=== PATIENT | male | born 1950 | race Caucasian/White ===

== ENCOUNTER 2019-04-04 08:17 | Outpatient (CLI) | payer MEDICARE, SELFPAY ==
[2019-04-04 08:48] LABS: Hemoglobin A1C 6.2 % (<5.7)
[2019-04-04 08:53] LABS: Alanine Aminotransferase 19 U/L (4-50); Albumin Level 4.5 g/dL (3.5-5.1); Alkaline Phosphatase 58 U/L (38-126); Aspartate Amino Transferase 21 U/L (17-59); Bilirubin,Total 0.6 mg/dL (0.2-1.3); Blood Urea Nitrogen 12 mg/dL (9-20); Calcium 9.7 mg/dL (8.4-10.2); Carbon Dioxide 28 mmol/L (22-30); Chloride 98 mmol/L (98-107); Cholesterol 130 mg/dL (0-200); Estimated Glomerular Filt Rate > 60; Glucose 106 mg/dL (75-110); HDL Direct 29 mg/dL; Potassium 4.3 mmol/L (3.4-5.0); Sodium 140 mmol/L (137-145); Triglycerides 104 mg/dL (<150)
[2019-04-04 09:05] LABS: LDL Cholesterol Direct 84 mg/dL
== END 2019-04-04 08:18 | disposition home or self-care (01) ==
PROVIDERS: PCP Family Medicine; Visit Provider Physician Assistant
DX: E11.9 Type 2 diabetes mellitus without complications (principal); E78.5 Hyperlipidemia, unspecified; E03.9 Hypothyroidism, unspecified
CPT/HCPCS: 36415; 80053; 80061; 83036; 84443

== ENCOUNTER 2019-04-28 02:23 | Day surgery (SDC) | payer MEDICARE, SELFPAY ==
[2019-04-28 08:14] VITALS: BP 142/86; PULSE 63; RESP 20; TEMP 36.3; O2SAT 98
[2019-04-28] MEDS: LACTATED RINGERS 1,000 ML 150 ML IV CONT (08:29)
[2019-04-28] MEDS: AMPICILLIN 2 GM/NS 100 ML 2 GM/100 ML BAG IVPB (08:30)
[2019-04-28] MEDS: GENTAMICIN 60 MG/50 ML NS 60 MG/50 ML BAG 100 MG IVPB (08:30)
--- NOTE | 2019-04-28 08:33 | WPDANESEPPF ---
Anes - Initial Pre Proc Eval Procedure: Operation Date: 04/28/19 09:00 Proposed Procedures p Screening Colonoscopy - Nate Pereira MD Date/Time: 04/28/19 08:33 Surgeon: Nate Pereira MD Pre Op Diagnosis: Neoplasm Screening, Hx of Polyps Patient Data Age: 68 Gender: M Height: 1.78 m Weight: 94.6 kg Last Vital Signs Temp 36.3 C L 04/28/19 08:14 Pulse 63 04/28/19 08:14 Resp 20 04/28/19 08:14 BP 142/86 H 04/28/19 08:14 Pulse Ox 98 04/28/19 08:14 Allergies Allergy/AdvReac Type Severity Reaction Status Date / Time No Known Allergies Allergy Unverified 04/21/19 14:49 Home Medications Medication Instructions Recorded Confirmed Type albuterol sulfate 2.5 mg INHALATION Q6H 04/11/19 04/21/19 History amlodipine 5 mg tablet 5 mg PO DAILY 04/11/19 04/21/19 History ascorbic acid (vitamin C) 1,000 mg 1 gm PO DAILY 04/11/19 04/21/19 History tablet aspirin 81 mg tablet,delayed 81 mg PO DAILY 04/11/19 04/21/19 History release atorvastatin 20 mg tablet 40 mg PO DAILY tablet 04/11/19 04/21/19 History budesonide-formoterol HFA 160 2 puff INHALATION Q12H 04/11/19 04/21/19 History mcg-4.5 mcg/actuation aerosol inhaler fluticasone propionate 50 1 spray NASAL BID 04/11/19 04/21/19 History mcg/actuation nasal spray,suspension furosemide 20 mg tablet 20 mg PO QAM 04/11/19 04/21/19 History levothyroxine 112 mcg tablet 112 mcg PO DAILY 04/11/19 04/21/19 History montelukast 10 mg tablet 10 mg PO DAILY 04/11/19 04/21/19 History multivitamin 1 tablet PO DAILY 04/11/19 04/21/19 History rivaroxaban 20 mg tablet 40 mg PO QPM 04/11/19 04/21/19 History tiotropium bromide 2.5 2 puff INHALATION DAILY 04/11/19 04/21/19 History mcg/actuation mist for inhalation metformin 500 mg tablet 500 mg PO BID 04/12/19 04/21/19 History metoprolol tartrate 25 mg PO BID 04/21/19 04/21/19 History montelukast 10 mg PO DAILY 04/21/19 04/21/19 History sertraline 100 mg PO DAILY 04/21/19 04/21/19 History Patient hx anesthesia problems: none Family hx anesthesia problems: none [facility] Past Medical History Medical History (Updated 04/28/19 @ 08:33 by Alfonso Lomeli DO) Allergic rhinitis CAD (coronary artery disease) >4 METs Chronic a-fib COPD (chronic obstructive pulmonary disease) Depression History of [place] (myocardial infarction) HLD (hyperlipidemia) HTN (hypertension) Hypothyroidism Mitral valve regurgitation RONALD (obstructive sleep apnea) Type 2 diabetes mellitus without complications Surgical History Surgical History (Updated 04/28/19 @ 08:33 by Alfonso Lomeli DO) H/O mitral valve repair 05/2018 Hx of CABG x2 vessel, 05/2018 Family History Family History (Updated 12/11/17 @ 10:09 by DOCTOR UNKNOWN) Sibling Patient's sister is in good health Father Family history of cardiovascular disease, Onset Age: 68 Social History Social History Smoking status: Former smoker Smoking end date: 02/23/03 Alcohol intake: never Gender identity (if verbalized by the patient): Male Anes - Eval Final PreProcedure Day of Procedure 04/28/19 08:33 Patient weight: overweight Heart: regular rate and rhythm Lungs: clear to auscultation and normal air movement Airway: Mallampati scale class II Neurological: alert and oriented Last oral intake: >/= 8 hours ASA classification: III Emergent: no Anesthetic plan: proceed Anesthesia type and monitoring: general GIVS and standard monitoring Informed Consent: The patient's anesthetic plan and its attendant risks and benefits were discussed with the patient/family/POA. Questions were solicited and answers provided to the satisfaction of the patient/family/POA.
--- NOTE | 2019-04-28 08:40 | PM.HPGS ---
History of Present Illness History of Present Illness Consent: Risks, benefits, and alternatives have been discussed and questions answered. Patient agrees to proceed with procedure. Chief complaint: Neoplasm Screening, Hx of Polyps Narrative: Fox Weiss is a 68 year old w male Referred for colonoscopy secondary to history of colonic polyps. Patient has had multiple colonoscopies in the past and last one was 5 years ago in [facility] Past Medical History Medical History Allergic rhinitis CAD (coronary artery disease) >4 METs Chronic a-fib COPD (chronic obstructive pulmonary disease) Depression History of [place] (myocardial infarction) HLD (hyperlipidemia) HTN (hypertension) Hypothyroidism Mitral valve regurgitation RONALD (obstructive sleep apnea) Type 2 diabetes mellitus without complications Surgical History Surgical History H/O mitral valve repair 05/2018 Hx of CABG x2 vessel, 05/2018 Family History Family History Sibling Patient's sister is in good health Father Family history of cardiovascular disease, Onset Age: 68 Social History Social History Smoking status: Former smoker Smoking end date: 02/23/03 Alcohol intake: never Gender identity (if verbalized by the patient): Male Meds Home Medications and Allergies Home Medications Medication Instructions Recorded Confirmed Type albuterol sulfate 2.5 mg INHALATION Q6H 04/11/19 04/21/19 History amlodipine 5 mg tablet 5 mg PO DAILY 04/11/19 04/21/19 History ascorbic acid (vitamin C) 1,000 mg 1 gm PO DAILY 04/11/19 04/21/19 History tablet aspirin 81 mg tablet,delayed 81 mg PO DAILY 04/11/19 04/21/19 History release atorvastatin 20 mg tablet 40 mg PO DAILY tablet 04/11/19 04/21/19 History budesonide-formoterol HFA 160 2 puff INHALATION Q12H 04/11/19 04/21/19 History mcg-4.5 mcg/actuation aerosol inhaler fluticasone propionate 50 1 spray NASAL BID 04/11/19 04/21/19 History mcg/actuation nasal spray,suspension furosemide 20 mg tablet 20 mg PO QAM 04/11/19 04/21/19 History levothyroxine 112 mcg tablet 112 mcg PO DAILY 04/11/19 04/21/19 History montelukast 10 mg tablet 10 mg PO DAILY 04/11/19 04/21/19 History multivitamin 1 tablet PO DAILY 04/11/19 04/21/19 History rivaroxaban 20 mg tablet 40 mg PO QPM 04/11/19 04/21/19 History tiotropium bromide 2.5 2 puff INHALATION DAILY 04/11/19 04/21/19 History mcg/actuation mist for inhalation metformin 500 mg tablet 500 mg PO BID 04/12/19 04/21/19 History metoprolol tartrate 25 mg PO BID 04/21/19 04/21/19 History montelukast 10 mg PO DAILY 04/21/19 04/21/19 History sertraline 100 mg PO DAILY 04/21/19 04/21/19 History Allergies Allergy/AdvReac Type Severity Reaction Status Date / Time No Known Allergies Allergy Unverified 04/21/19 14:49 Vital Signs Vital Signs - 24 hr 04/28/19 08:14 Temperature 36.3 C L Pulse Rate 63 Respiratory Rate 20 Blood Pressure 142/86 H Pulse Oximetry 98 Exam Const: Orientation/consciousness: patient oriented x3 Resp: Auscultation: clear to auscultation bilaterally Cardio: Rate: regular rate Rhythm: regular rhythm Heart sounds: no murmurs GI: GI Palp: Yes Soft to palpation, No Tenderness to palpation present (GI), Yes No hepatosplenomegaly present and No Palpable mass present Auscultation: normal bowel sounds Neuro: General: patient oriented x3 and no focal motor deficits Extrem: General: no pedal edema Assessment and Plan Additional Plan Screening colonoscopy secondary history of colonic polyps
[2019-04-28 08:46] LABS: Glucose Point of Care 106 (65-105)
[2019-04-28 10:10] VITALS: BP 133/82; PULSE 69; RESP 20; O2SAT 98
[2019-04-28 10:20] VITALS: BP 128/64; PULSE 70; RESP 20; O2SAT 98
[2019-04-28 10:28] VITALS: BP 147/98; PULSE 66; RESP 20; O2SAT 99
== END 2019-04-28 10:37 | disposition home or self-care (01) ==
PROVIDERS: PCP Family Medicine; Visit Provider Internal Medicine Gastroenterology
PROC: 0DJD8ZZ Inspection of Lower Intestinal Tract, Via Natural or Artificial Opening Endoscopic (ICD-10-PCS; CPT 45378; principal; 2019-04-28 09:00)
DX: Z12.11 Encounter for screening for malignant neoplasm of colon (principal); D12.2 Benign neoplasm of ascending colon; D12.0 Benign neoplasm of cecum; D12.3 Benign neoplasm of transverse colon; K64.8 Other hemorrhoids; K64.4 Residual hemorrhoidal skin tags; K57.30 Diverticulosis of large intestine without perforation or abscess without bleeding; I48.20 Chronic atrial fibrillation, unspecified; I25.10 Atherosclerotic heart disease of native coronary artery without angina pectoris; I10 Essential (primary) hypertension; I25.2 Old myocardial infarction; J44.9 Chronic obstructive pulmonary disease, unspecified; E78.5 Hyperlipidemia, unspecified; E11.9 Type 2 diabetes mellitus without complications; E03.9 Hypothyroidism, unspecified; G47.33 Obstructive sleep apnea (adult) (pediatric); F32.9 Major depressive disorder, single episode, unspecified; Z79.01 Long term (current) use of anticoagulants; Z79.82 Long term (current) use of aspirin; Z79.84 Long term (current) use of oral hypoglycemic drugs; Z95.1 Presence of aortocoronary bypass graft; Z87.891 Personal history of nicotine dependence
CPT/HCPCS: 45385; 45380; 88305; J0290; J1580; J2704; J7120

== ENCOUNTER 2019-05-31 14:39 | Outpatient (CLI) | payer MEDICARE, SELFPAY ==
--- NOTE | ~2019-05-31 | CT_ITS ---
EXAMINATION: CT abdomen pelvis wo con EXAM DATE: 05/31/2019 14:53 INDICATION: Right upper quadrant pain, hematuria. TECHNIQUE: Spiral CT of the abdomen and pelvis was performed without contrast. Axial, coronal and s agittal images were reviewed. The dose-length product (DLP) for this examination was 813.38 mGy-cm. The exposure was tailored according to patient size (auto mA exposure control), and iterative recons truction (ASIR) was used as additional dose reduction technique. There is no prior study for compari son. FINDINGS: The liver, spleen, adrenal glands and pancreas are unremarkable. There is gallstone within an otherwise unremarkable gallbladder. Lower abdominal aortic aneurysm measuring 4.9 x 4.2 cm. Ther e are 2 right calyceal stones, largest measuring 5 mm x 2 mm. No obstructing ureteral stones. No hydr onephrosis. The prostate is unremarkable. The bladder is unremarkable. There is no retroperitoneal or pelvic lymphadenopathy. There is moderate scattered arteriosclerotic disease. The appendix is normal. The stomach and small bowel are unremarkable. There is expected amount of c olonic stool. No free intraperitoneal gas. There is cardiomegaly. Sternotomy wires, mitral valve replacement. The lung bases are unremarkable. There are no osteoblastic or osteolytic lesions ident ified. IMPRESSION: 1. Right nephrolithiasis. 2. Cholelithiasis. 3. Cardiomegaly. Reviewed, dictated and finalized at location B.
== END 2019-05-31 14:40 | disposition home or self-care (01) ==
LOC: ANHIMG 14:40
PROVIDERS: PCP Family Medicine; Visit Provider Physician Assistant
DX: R10.11 Right upper quadrant pain (principal); R31.9 Hematuria, unspecified; N20.0 Calculus of kidney; K80.20 Calculus of gallbladder without cholecystitis without obstruction; I51.7 Cardiomegaly
CPT/HCPCS: 74176

== ENCOUNTER 2019-06-01 08:12 | Outpatient (CLI) | payer MEDICARE, SELFPAY ==
[2019-06-01 08:49] LABS: Basophils Absolute Auto 0.1 K/mm3 (0.0-0.1); Basophils Percent Auto 0.7 % (0.2-1.2); Eosinophils Absolute Auto 0.3 K/mm3 (0-0.3); Eosinophils Percent Auto 3.1 % (0-4.4); Hematocrit 37.6 % (42.0-52.0); Hemoglobin 12.3 g/dL (14.0-18.0); Immature Granulocyte Absolute 0.05 K/mm3 (0.00-0.031); Immature Granulocyte Percent A 0.6 % (0-0.5); Lymphocytes Absolute Auto 2.94 K/mm3 (0.9-3.2); Lymphocytes Percent Auto 32.7 % (18.3-44.2); Mean Corpuscular HGB Conc 32.7 g/dl (32-36); Mean Corpuscular Hemoglobin 29.9 pg (26-34); Mean Corpuscular Volume 91.3 fl (80-100); Mean Platelet Volume 8.9 fl (7.4-10.4); Monocytes Absolute Auto 0.7 K/mm3 (0.1-0.6); Neutrophils Absolute Auto 4.9 K/mm3 (1.3-6.7); Neutrophils Percent Auto 54.9 % (45.5-73.1); Platelet Count Result 221 k/mm3 (150-375); Red Blood Count 4.12 M/mm3 (4.6-6.20)
[2019-06-01 09:03] LABS: Alanine Aminotransferase 15 U/L (4-50); Albumin Level 4.3 g/dL (3.5-5.1); Alkaline Phosphatase 62 U/L (38-126); Amylase 103 U/L (30-110); Aspartate Amino Transferase 22 U/L (17-59); Bilirubin,Total 0.6 mg/dL (0.2-1.3); Blood Urea Nitrogen 16 mg/dL (9-20); Calcium 9.5 mg/dL (8.4-10.2); Carbon Dioxide 25 mmol/L (22-30); Chloride 104 mmol/L (98-107); Estimated Glomerular Filt Rate > 60; Glucose 104 mg/dL (75-110); Lipase 66 U/L (23-300); Potassium 4.5 mmol/L (3.4-5.0); Sodium 136 mmol/L (137-145)
== END 2019-06-01 08:13 | disposition home or self-care (01) ==
PROVIDERS: PCP Family Medicine; Visit Provider Physician Assistant
DX: R10.9 Unspecified abdominal pain (principal)
CPT/HCPCS: 36415; 80053; 82150; 83690; 85025

== ENCOUNTER 2019-06-08 08:16 | Outpatient (CLI) | payer MEDICARE, SELFPAY ==
--- NOTE | ~2019-06-08 | NM_ITS ---
EXAMINATION: NM hepatobiliary wo pharm DATE: 06/08/2019 11:03 INDICATION: Right upper quadrant abdominal pain. COMPARISON: CT abdomen and pelvis 05/31/2019 TECHNIQUE: 4.84 mCi Tc-99m mebrofenin (Choletec) was administered intravenously. Scintigraphic image s of the abdomen were obtained for one hour. Then, the patient drank 8 oz Ensure, and imaging was con tinued for 60 minutes. FINDINGS: There is normal clearance of radiotracer from the blood pool. There is homogeneous tracer u ptake by the liver. Activity progresses to the bowel and gallbladder. Gallbladder ejection fraction (GBEF) was 29%. Note that with this technique, normal GBEF >= 33%. IMPRESSION: 1. Low gallbladder ejection fraction, consistent with gallbladder dysfunction and/or chronic cholecy stitis. Reviewed, dictated and finalized at location A. IMPRESSION: 1. Low gallbladder ejection fraction, consistent with gallbladder dysfunction and/or chronic cholecystitis.
== END 2019-06-08 08:17 | disposition home or self-care (01) ==
PROVIDERS: PCP Family Medicine; Visit Provider Physician Assistant
DX: R10.11 Right upper quadrant pain (principal); K80.20 Calculus of gallbladder without cholecystitis without obstruction
CPT/HCPCS: 78226; A9537

== ENCOUNTER 2019-07-07 07:49 | Outpatient (CLI) | payer MEDICARE, SELFPAY ==
[2019-07-07 08:35] LABS: Basophils Absolute Auto 0.1 K/mm3 (0.0-0.1); Basophils Percent Auto 0.9 % (0.2-1.2); Eosinophils Absolute Auto 0.3 K/mm3 (0-0.3); Hematocrit 40.2 % (42.0-52.0); Immature Granulocyte Absolute 0.08 K/mm3 (0.00-0.031); Immature Granulocyte Percent A 0.9 % (0-0.5); Lymphocytes Absolute Auto 2.84 K/mm3 (0.9-3.2); Lymphocytes Percent Auto 32.5 % (18.3-44.2); Mean Corpuscular HGB Conc 32.3 g/dl (32-36); Mean Corpuscular Hemoglobin 28.6 pg (26-34); Mean Corpuscular Volume 88.5 fl (80-100); Mean Platelet Volume 9.4 fl (7.4-10.4); Monocytes Absolute Auto 0.7 K/mm3 (0.1-0.6); Monocytes Percent Auto 7.7 % (2.6-8.5); Neutrophils Absolute Auto 4.8 K/mm3 (1.3-6.7); Platelet Count Result 232 k/mm3 (150-375); Red Blood Count 4.54 M/mm3 (4.6-6.20); Red Cell Distribution Width 13.2 % (11.5-14.5); White Blood Count 8.7 K/mm3 (4.5-10.0)
[2019-07-07 14:47] LABS: Iron 48 ug/dL (49-181)
[2019-07-07 15:04] LABS: Percent Iron Saturation 11 % (20-50)
[2019-07-07 15:30] LABS: Folic Acid > 20.0 ng/mL (2.76->20)
== END 2019-07-07 07:50 | disposition home or self-care (01) ==
PROVIDERS: PCP Family Medicine; Visit Provider Physician Assistant
DX: D64.9 Anemia, unspecified (principal)
CPT/HCPCS: 36415; 82607; 82728; 82746; 83540; 83550; 85025

== ENCOUNTER → 2019-11-04 11:19 | Outpatient (CLI) | payer MEDICARE, SELFPAY ==
--- NOTE | ~2019-11-04 | CT_ITS ---
EXAMINATION: CT lung screening DATE: 11/04/2019 11:43 INDICATION: Personal history of nicotine dependence, prior smoker with 35 pack year history TECHNIQUE: Computed tomography (CT) of the chest was performed without intravenous contrast. The dose -length product (DLP) was 213.30 mGy-cm. Automated exposure control and iterative reconstruction tech [employer] were employed. COMPARISON: 11/17/2018 FINDINGS: There are multiple stable nodules of the lower lobes, the largest of which measures 5 mm in the left lower lobe. There is mild emphysema. No focal airspace opacities are identified. There is n o pleural effusion or pneumothorax. Cardiomegaly is noted. There are changes of coronary artery bypas s grafting. No pathologically enlarged thoracic lymph nodes are identified. There is mild emphysema. There are bridging osteophytes at multiple levels in the spine, consistent with diffuse idiopathic sk eletal hyperostosis (DISH). IMPRESSION: 1. Lung-RADS category 2: Benign appearance or behavior. Continue annual screening with noncontrast lo w-dose chest CT in 12 months. Reviewed, dictated and finalized at location B. IMPRESSION: 1. Lung-RADS category 2: Benign appearance or behavior. Continue annual screeni ng with noncontrast low-dose chest CT in 12 months.
== END ==
PROVIDERS: PCP Family Medicine; Visit Provider Nurse Practitioner Family
DX: Z12.2 Encounter for screening for malignant neoplasm of respiratory organs (principal); Z87.891 Personal history of nicotine dependence
CPT/HCPCS: G0297

== ENCOUNTER 2019-12-28 07:24 | Outpatient (CLI) | payer MEDICARE, SELFPAY ==
--- NOTE | 2020-01-02 13:47 | WPDSIXMINUTE ---
Six Minute Walk Six Minute Walk: DOS: 12.28.2019 REQUESTING: Mark Flores APRN REASON FOR TESTING: COPD SIX MINUTE WALK This test was conducted per ATS guidelines. Initial saturation was 97% and pulse was 82. The patient walked for 6 minutes breathing room air without stopping to rest. The final saturation was 96%. The distance walked was 800 ft/ 243.8 meters. The patient had mild dyspnea and fatigue IMPRESSION: Normal walk study without desaturation. No supplemental oxygen is indicated with exertion.
== END 2019-12-28 07:25 | disposition home or self-care (01) ==
PROVIDERS: PCP Family Medicine; Visit Provider Nurse Practitioner Family
DX: R06.02 Shortness of breath (principal)
CPT/HCPCS: 94618

== ENCOUNTER 2020-01-11 10:25 | Outpatient (CLI) | payer MEDICARE, SELFPAY ==
--- NOTE | ~2020-01-11 | CT_ITS ---
EXAMINATION: CT chest wo con DATE: 01/11/2020 10:41 INDICATION: Ascending aortic aneurysm follow-up TECHNIQUE: Computed tomography (CT) of the chest was performed without intravenous contrast. Automate d exposure control and iterative reconstruction technique were employed. Exam dose: 488.97 mGy-cm to bri exam DLP. COMPARISON: 11/04/2019 CT lung screening 11/17/2018 CT chest 05/07/2018 CT chest FINDINGS: Postoperative change including sternal wire sutures are again noted. The ascending aorta measures approximately 4.7 cm diameter, compared to 4.6 cm measurement on 05/08/[address] chest. Aortic arch measures up to approximately 3.4 cm diameter. Again noted are calcifications of the aortic valve. There is thoracic aortic, great vessel and burciaga ry artery calcification. No interval hilar or mediastinal mass lesion or interval lymph node enlargement. Cardiomegaly. No pericardial or pleural effusion. Right upper, middle and lower lobe calcified pulmonary granulomas and calcified right hilar and media stinal nodes, consistent with old granulomatous disease, including calcified splenic granulomas. Stable 3 mm left lower lobe nodular density (series 4 image 82) since 05/05/2018, consistent with sarah beth gn lesion. Stable 5 mm nodule in the posterior left lower lobe (series 4 image 76) since 05/07/2018. Stable approximately 8 mm lateral left diaphragmatic pleural based calcified nodular, consistent with probable calcified granuloma (image 105). Stable posterolateral left costophrenic gutter 6 mm pleural-based nodule (image 111). No interval new or enlarging pulmonary mass lesion since 05/07/2018. Emphysematous changes are again noted. No pulmonary infiltrate or consolidation. Normal morphology of the adrenal glands. IMPRESSION: Essentially stable ascending aortic aneurysm Stable bilateral nodular pulmonary densities Cardiomegaly Emphysema Reviewed, dictated and finalized at Location A. Reviewed, dictated and finalized at location B. SIGN MECHANIC
== END 2020-01-11 10:26 | disposition home or self-care (01) ==
LOC: CHSIMG 10:27
PROVIDERS: PCP Family Medicine; Visit Provider Internal Medicine Cardiovascular Disease
DX: I71.2 Thoracic aortic aneurysm, without rupture (principal)
CPT/HCPCS: 71250

== ENCOUNTER 2020-01-17 07:54 | Outpatient (CLI) | payer MEDICARE, SELFPAY | END 2020-01-17 07:55 | disposition home or self-care (01) | PROVIDERS: PCP Family Medicine; Visit Provider Physician Assistant | DX: D64.9 Anemia, unspecified (principal); E03.9 Hypothyroidism, unspecified | CPT/HCPCS: 36415; 84443 ==

== ENCOUNTER 2020-02-07 09:44 | Outpatient (CLI) | payer MEDICARE, SELFPAY | END 2020-02-07 09:45 | disposition home or self-care (01) | LOC: CHSLAB 09:48 | PROVIDERS: PCP Family Medicine; Visit Provider Specialist | DX: C44.329 Squamous cell carcinoma of skin of other parts of face (principal) | CPT/HCPCS: 88305 ==

== ENCOUNTER → 2020-02-22 10:59 | Outpatient (CLI) | payer MEDICARE, SELFPAY ==
--- NOTE | ~2020-02-22 | XR_ITS ---
XR knee LT 3V DATE: 02/22/2020 11:17 INDICATION: Left knee pain TECHNIQUE: Standing AP and lateral views, sunrise view COMPARISON: None FINDINGS: There is mild periarticular spurring of the patella consistent with osteoarthritis. There is minimal loss of height at the medial compartment joint space. No fracture or dislocation or joint effusion. No periosteal reaction or bone destruction. No radiopaq ue intra-articular loose body or chondrocalcinosis. Vertebral calcification is noted. IMPRESSION: Mild osteoarthritis Reviewed, dictated and finalized at location A. EL DIRECTOR IMPRESSION: Mild osteoarthritis
== END ==
PROVIDERS: PCP Family Medicine; Visit Provider Physician Assistant
DX: M17.12 Unilateral primary osteoarthritis, left knee (principal)
CPT/HCPCS: 73562

== ENCOUNTER 2020-06-04 08:24 | Outpatient (CLI) | payer MEDICARE, SELFPAY ==
[2020-06-04 08:53] LABS: Basophils Absolute Auto 0.1 K/mm3 (0.0-0.1); Basophils Percent Auto 0.8 % (0.2-1.2); Eosinophils Absolute Auto 0.3 K/mm3 (0-0.3); Hematocrit 42.6 % (42.0-52.0); Hemoglobin 14.2 g/dL (14.0-18.0); Immature Granulocyte Absolute 0.03 K/mm3 (0.00-0.031); Immature Granulocyte Percent A 0.4 % (0-0.5); Lymphocytes Absolute Auto 2.31 K/mm3 (0.9-3.2); Lymphocytes Percent Auto 27.7 % (18.3-44.2); Mean Corpuscular HGB Conc 33.3 g/dl (32-36); Mean Corpuscular Hemoglobin 30.7 pg (26-34); Mean Corpuscular Volume 92.2 fl (80-100); Monocytes Absolute Auto 0.7 K/mm3 (0.1-0.6); Monocytes Percent Auto 8.3 % (2.6-8.5); Neutrophils Percent Auto 59.8 % (45.5-73.1); Platelet Count Result 218 k/mm3 (150-375); Red Blood Count 4.62 M/mm3 (4.6-6.20); Red Cell Distribution Width 13.2 % (11.5-14.5); White Blood Count 8.3 K/mm3 (4.5-10.0)
[2020-06-04 09:01] LABS: Add Urine Microscopic? YES; Appearance Urine Clear (Clear); Bilirubin Urine Negative (Negative); Blood Urine Negative (Negative); Color Urine Yellow (Yellow); Glucose Urine UA Negative (Negative); Ketones Urine Negative (Negative); Leukocyte Esterase Ur Negative LEU/UL (NEGATIVE); Nitrate Urine Negative (Negative); Protein Urine Negative (Negative); Specific Grav Ur 1.009 (1.001-1.035); Urobilinogen Urine Negative mg/dL (<2.0); WBC Urine 0-3 /hpf (0-3)
[2020-06-04 09:02] LABS: Alanine Aminotransferase 14 U/L (4-50); Albumin Level 4.5 g/dL (3.5-5.1); Alkaline Phosphatase 64 U/L (38-126); Anion Gap 6 mmol/L (8-16); Aspartate Amino Transferase 19 U/L (17-59); Bilirubin,Total 0.6 mg/dL (0.2-1.3); Blood Urea Nitrogen 15 mg/dL (9-20); Calcium 9.5 mg/dL (8.4-10.2); Carbon Dioxide 28 mmol/L (22-30); Chloride 104 mmol/L (98-107); Cholesterol 117 mg/dL (0-200); Estimated Glomerular Filt Rate > 60; Glucose 110 mg/dL (75-110); HDL Direct 30 mg/dL; Potassium 4.6 mmol/L (3.4-5.0); Sodium 138 mmol/L (137-145); Triglycerides 76 mg/dL (<150)
[2020-06-04 09:13] LABS: Hemoglobin A1C 5.7 % (<5.7); LDL Cholesterol Direct 70 mg/dL
[2020-06-04 09:40] LABS: Creatinine Urine 31.9 mg/dL
[2020-06-04 09:58] LABS: MALB Creatinine Ratio < 18.8 mg/g (0-30); Microalbumin Urine Random < 6.0 mg/L (0-16.7)
[2020-06-04 10:08] LABS: Folic Acid 15.1 ng/mL (2.76->20)
[2020-06-04 11:00] LABS: Iron 73 ug/dL (49-181)
[2020-06-04 11:10] LABS: Percent Iron Saturation 19 % (20-50)
== END 2020-06-04 08:25 | disposition home or self-care (01) ==
PROVIDERS: PCP Family Medicine; Visit Provider Physician Assistant
DX: R22.1 Localized swelling, mass and lump, neck (principal); I27.20 Pulmonary hypertension, unspecified; E03.9 Hypothyroidism, unspecified; I10 Essential (primary) hypertension; E78.5 Hyperlipidemia, unspecified; I25.10 Atherosclerotic heart disease of native coronary artery without angina pectoris; I48.20 Chronic atrial fibrillation, unspecified; E11.9 Type 2 diabetes mellitus without complications
CPT/HCPCS: 36415; 80053; 80061; 81001; 82043; 82607; 82728; 82746; 83036; 83540; 83550; 84443; 85025

== ENCOUNTER 2020-09-03 08:13 | Outpatient (CLI) | payer MEDICARE, SELFPAY ==
[2020-09-03 08:34] LABS: Alanine Aminotransferase 13 U/L (4-50); Albumin Level 4.3 g/dL (3.5-5.1); Alkaline Phosphatase 60 U/L (38-126); Anion Gap 8 mmol/L (8-16); Aspartate Amino Transferase 21 U/L (17-59); Bilirubin,Total 0.7 mg/dL (0.2-1.3); Blood Urea Nitrogen 14 mg/dL (9-20); Calcium 9.6 mg/dL (8.4-10.2); Carbon Dioxide 25 mmol/L (22-30); Chloride 103 mmol/L (98-107); Estimated Glomerular Filt Rate > 60; Glucose 116 mg/dL (75-110); Potassium 4.3 mmol/L (3.4-5.0); Sodium 136 mmol/L (137-145)
== END 2020-09-03 08:14 | disposition home or self-care (01) ==
LOC: ANHLAB 08:16
PROVIDERS: PCP Family Medicine; Visit Provider Physician Assistant
DX: E03.9 Hypothyroidism, unspecified (principal); E11.9 Type 2 diabetes mellitus without complications; I10 Essential (primary) hypertension
CPT/HCPCS: 36415; 80053; 84443

== ENCOUNTER 2021-05-28 11:00 | Outpatient (CLI) | payer MEDICARE, SELFPAY ==
[2021-05-28 11:48] LABS: Hemoglobin A1C 5.7 % (<5.7)
[2021-05-28 12:40] LABS: Vitamin D 25 Hydroxy 42.8 ng/mL
[2021-05-28 12:50] LABS: Alanine Aminotransferase 16 U/L (4-50); Albumin Level 4.6 g/dL (3.5-5.1); Alkaline Phosphatase 60 U/L (38-126); Anion Gap 9 mmol/L (8-16); Aspartate Amino Transferase 22 U/L (17-59); Bilirubin,Total 0.8 mg/dL (0.2-1.3); Blood Urea Nitrogen 16 mg/dL (9-20); Calcium 9.4 mg/dL (8.4-10.2); Carbon Dioxide 26 mmol/L (22-30); Chloride 103 mmol/L (98-107); Estimated Glomerular Filt Rate > 60; Glucose 89 mg/dL (65-110); Potassium 4.5 mmol/L (3.4-5.0); Sodium 138 mmol/L (137-145)
[2021-05-28 13:56] LABS: Folic Acid 15.4 ng/mL (2.76->20)
== END 2021-05-28 11:01 | disposition home or self-care (01) ==
LOC: ANHLAB 11:07
PROVIDERS: PCP Family Medicine; Visit Provider Physician Assistant
DX: I27.20 Pulmonary hypertension, unspecified (principal); E03.9 Hypothyroidism, unspecified; I10 Essential (primary) hypertension; E11.9 Type 2 diabetes mellitus without complications; R20.0 Anesthesia of skin; R20.2 Paresthesia of skin; E55.9 Vitamin D deficiency, unspecified
CPT/HCPCS: 36415; 80053; 82306; 82607; 82746; 83036; 84443

== ENCOUNTER → 2021-08-28 09:43 | Outpatient (CLI) | payer SELFPAY ==
--- NOTE | ~2021-08-28 | CT_ITS ---
This report was recreated 10/10/2021. Original report was signed by Peyman Mensah M.D. on 08/28/2021 EXAMINATION: CT diagnostic chest wo con DATE: 08/28/2021 10:10 INDICATION: Aortic aneurysm, known or suspected TECHNIQUE: Computed tomography (CT) of the chest was performed without intravenous contrast. The dose -length product (DLP) was 554.11 mGy-cm. Automated exposure control and iterative reconstruction tech [employer] were employed. COMPARISON: 01/11/2020 FINDINGS: Again seen are multiple stable nodules of the lower lobes, largest of which measures 5 mm i n the left lower lobe. The lungs are free of acute opacities. No pleural effusion or pneumothorax. Th ere is mild emphysema. Cardiomegaly is noted. There is a stable fusiform aneurysm of the ascending ao rta which measures 4.7 cm at the level of the main pulmonary artery. There is a 10 mm nonobstructing stone of the right kidney upper pole. There are bridging osteophytes at multiple levels in the spine, consistent with diffuse idiopathic skeletal hyperostosis (DISH). IMPRESSION: 1. Stable fusiform aneurysm of the ascending aorta. 2. Mild emphysema. 3. Cardiomegaly. Reviewed, dictated and finalized at location B. Dictated By: Peyman Mensah MD 08/28/21 1453 Signed By: <Electronically signed by Peyman Mensah MD in OV> Reviewed, dictated and finalized at location B.
--- NOTE | ~2021-08-28 | CT_ITS ---
EXAMINATION: CT diagnostic chest wo con DATE: 08/28/2021 10:10 INDICATION: Aortic aneurysm, known or suspected TECHNIQUE: Computed tomography (CT) of the chest was performed without intravenous contrast. The dose -length product (DLP) was 554.11 mGy-cm. Automated exposure control and iterative reconstruction tech [employer] were employed. COMPARISON: 01/11/2020 FINDINGS: Again seen are multiple stable nodules of the lower lobes, largest of which measures 5 mm i n the left lower lobe. The lungs are free of acute opacities. No pleural effusion or pneumothorax. Th ere is mild emphysema. Cardiomegaly is noted. There is a stable fusiform aneurysm of the ascending ao rta which measures 4.7 cm at the level of the main pulmonary artery. There is a 10 mm nonobstructing stone of the right kidney upper pole. There are bridging osteophytes at multiple levels in the spine, consistent with diffuse idiopathic skeletal hyperostosis (DISH). IMPRESSION: 1. Stable fusiform aneurysm of the ascending aorta. 2. Mild emphysema. 3. Cardiomegaly. Reviewed, dictated and finalized at location B.
== END ==
PROVIDERS: PCP Family Medicine; Visit Provider Internal Medicine Cardiovascular Disease
DX: I71.2 Thoracic aortic aneurysm, without rupture (principal); J43.9 Emphysema, unspecified; I51.7 Cardiomegaly
CPT/HCPCS: 99199; 71250

== ENCOUNTER 2021-10-02 07:21 | Outpatient (CLI) | payer MEDICARE, SELFPAY ==
[2021-10-02 07:49] LABS: Basophils Absolute Auto 0.1 K/mm3 (0.0-0.1); Basophils Percent Auto 0.9 % (0.2-1.2); Eosinophils Absolute Auto 0.3 K/mm3 (0-0.3); Hematocrit 43.6 % (42.0-52.0); Hemoglobin 14.2 g/dL (14.0-18.0); Immature Granulocyte Absolute 0.03 K/mm3 (0.00-0.031); Immature Granulocyte Percent A 0.3 % (0-0.5); Lymphocytes Absolute Auto 2.09 K/mm3 (0.9-3.2); Lymphocytes Percent Auto 23.8 % (18.3-44.2); Mean Corpuscular HGB Conc 32.6 g/dl (32-36); Mean Corpuscular Hemoglobin 30.3 pg (26-34); Monocytes Absolute Auto 0.7 K/mm3 (0.1-0.6); Monocytes Percent Auto 8.3 % (2.6-8.5); Neutrophils Absolute Auto 5.6 K/mm3 (1.3-6.7); Neutrophils Percent Auto 63.7 % (45.5-73.1); Platelet Count Result 230 k/mm3 (150-375); Red Blood Count 4.69 M/mm3 (4.6-6.20); Red Cell Distribution Width 13.5 % (11.5-14.5); White Blood Count 8.8 K/mm3 (4.5-10.0)
[2021-10-02 07:55] LABS: Add Urine Microscopic? YES; Appearance Urine Clear (Clear); Bilirubin Urine Negative (Negative); Blood Urine Trace-Intact (Negative); Color Urine Yellow (Yellow); Glucose Urine UA Negative (Negative); Ketones Urine Negative (Negative); Leukocyte Esterase Ur Negative LEU/UL (NEGATIVE); Nitrate Urine Negative (Negative); Protein Urine Negative (Negative); Urobilinogen Urine 0.2 mg/dL (<2.0)
[2021-10-02 08:02] LABS: Mucus Urine Rare /lpf; RBC Urine 0-2 /hpf (0-2); WBC Urine 0-3 /hpf (0-3)
[2021-10-02 08:06] LABS: Hemoglobin A1C 5.8 % (<5.7)
[2021-10-02 08:08] LABS: Alanine Aminotransferase 18 U/L (6-50); Albumin Level 4.6 g/dL (3.5-5.1); Alkaline Phosphatase 60 U/L (38-126); Anion Gap 10 mmol/L (8-16); Aspartate Amino Transferase 24 U/L (17-59); Bilirubin,Total 0.8 mg/dL (0.2-1.3); Blood Urea Nitrogen 13 mg/dL (9-20); Calcium 9.6 mg/dL (8.4-10.2); Carbon Dioxide 27 mmol/L (22-30); Chloride 100 mmol/L (98-107); Cholesterol 119 mg/dL (0-200); Estimated Glomerular Filt Rate > 60; Glucose 122 mg/dL (65-110); HDL Direct 33 mg/dL; Potassium 4.4 mmol/L (3.4-5.0); Sodium 137 mmol/L (137-145); Triglycerides 71 mg/dL (<150)
[2021-10-02 08:20] LABS: LDL Cholesterol Direct 61 mg/dL
[2021-10-02 08:36] LABS: Creatinine Urine 11.7 mg/dL
[2021-10-02 09:23] LABS: Microalbumin Urine Random < 6.0 mg/L (0-16.7)
== END 2021-10-02 07:22 | disposition home or self-care (01) ==
LOC: ANHLAB 07:23
PROVIDERS: PCP Family Medicine; Visit Provider Physician Assistant
DX: E78.5 Hyperlipidemia, unspecified (principal); I48.20 Chronic atrial fibrillation, unspecified; G47.33 Obstructive sleep apnea (adult) (pediatric); E03.9 Hypothyroidism, unspecified; Z00.00 Encounter for general adult medical examination without abnormal findings; I10 Essential (primary) hypertension; I71.4 Abdominal aortic aneurysm, without rupture; E11.9 Type 2 diabetes mellitus without complications
CPT/HCPCS: 36415; 80053; 80061; 81001; 82043; 83036; 84443; 85025

== ENCOUNTER 2021-10-07 04:56 | Day surgery (SDC) | payer MEDICARE, SELFPAY ==
[2021-10-04 10:54] VITALS: BMI 30.9
[2021-10-07] VITALS (18 sets, daily range): BP systolic 146–161; BP diastolic 75–116; PULSE 60–77; RESP 16–23; TEMP 37.1; O2SAT 93–98; BMI 31.2
[2021-10-07 07:30] LABS: Basophils Absolute Auto 0.1 K/mm3 (0.0-0.1); Basophils Percent Auto 0.8 % (0.2-1.2); Eosinophils Absolute Auto 0.2 K/mm3 (0-0.3); Eosinophils Percent Auto 2.8 % (0-4.4); Hematocrit 41.9 % (42.0-52.0); Hemoglobin 13.9 g/dL (14.0-18.0); Immature Granulocyte Absolute 0.02 K/mm3 (0.00-0.031); Immature Granulocyte Percent A 0.3 % (0-0.5); Lymphocytes Absolute Auto 1.85 K/mm3 (0.9-3.2); Lymphocytes Percent Auto 23.9 % (18.3-44.2); Mean Corpuscular HGB Conc 33.2 g/dl (32-36); Mean Corpuscular Hemoglobin 30.1 pg (26-34); Mean Corpuscular Volume 90.7 fl (80-100); Mean Platelet Volume 9.1 fl (7.4-10.4); Monocytes Absolute Auto 0.7 K/mm3 (0.1-0.6); Monocytes Percent Auto 9.4 % (2.6-8.5); Neutrophils Absolute Auto 4.9 K/mm3 (1.3-6.7); Neutrophils Percent Auto 62.8 % (45.5-73.1); Platelet Count Result 213 k/mm3 (150-375); Red Blood Count 4.62 M/mm3 (4.6-6.20); Red Cell Distribution Width 13.3 % (11.5-14.5); White Blood Count 7.8 K/mm3 (4.5-10.0)
[2021-10-07 07:43] LABS: Anion Gap 10 mmol/L (8-16); Blood Urea Nitrogen 14 mg/dL (9-20); Calcium 9.6 mg/dL (8.4-10.2); Carbon Dioxide 25 mmol/L (22-30); Chloride 102 mmol/L (98-107); Estimated CRCL calculation 84 ml/min; Estimated Glomerular Filt Rate > 60; Glucose 124 mg/dL (65-110); Potassium 4.3 mmol/L (3.4-5.0); Sodium 137 mmol/L (137-145)
--- NOTE | 2021-10-07 08:34 | WPDMODSED ---
Moderate Sedation Note-Pt Data Patient Data Diagnosis: Coronary artery disease with previous CABG previous mitral valve repair atrial fibrillation decline in left ventricular systolic function Present Complaint: this is a 71-year-old man with coronary disease who underwent bypass grafting and mitral valve repair in May of 2018. At that time he received vein grafts to the OM to the PDA. He also underwent a mitral valve ring annuloplasty. He is reporting symptoms of dyspnea and apparently by echo there is a decline in left ventricular systolic function Procedure to be performed/Plan: coronary angiogram saphenous vein graft angiogram Allergies Allergy/AdvReac Type Severity Reaction Status Date / Time No Known Allergies Allergy Verified 10/07/21 07:30 Home Medications Medication Instructions Recorded Confirmed Type amlodipine 5 mg tablet (Norvasc) 5 mg PO DAILY 04/11/19 10/07/21 History ascorbic acid (vitamin C) 1,000 mg 1 gm PO DAILY 04/11/19 10/07/21 History tablet aspirin 81 mg tablet,delayed 81 mg PO DAILY 04/11/19 10/07/21 History release atorvastatin 20 mg tablet (Lipitor) 40 mg PO DAILY 04/11/19 10/07/21 History furosemide 20 mg tablet 20 mg PO QAM 04/11/19 10/07/21 History montelukast 10 mg tablet 10 mg PO DAILY 04/11/19 10/07/21 History (Singulair) rivaroxaban 20 mg tablet (Xarelto) 40 mg PO QPM 04/11/19 10/07/21 History tiotropium bromide 2.5 2 puff inhalation DAILY 04/11/19 10/07/21 History mcg/actuation mist for inhalation (Spiriva Respimat) metoprolol tartrate 25 mg tablet 25 mg PO BID 04/21/19 10/07/21 History sertraline 100 mg tablet 100 mg PO DAILY 04/21/19 10/07/21 History albuterol sulfate 2.5 mg/3 mL 2.5 mg (3 mL) inhalation Q6H PRN 06/13/20 10/07/21 Rx (0.083 %) solution for nebulization shortness of breath or wheezing #360 mL losartan 25 mg tablet 25 mg PO DAILY #30 tabs 08/09/20 10/07/21 Rx levothyroxine 137 mcg tablet 137 mcg PO DAILY #60 tabs 09/27/20 10/07/21 Rx fluticasone propionate 50 1 spray intranasal BID #16 grams 02/19/21 10/07/21 Rx mcg/actuation nasal spray,suspension (Flonase Allergy Relief) fluticasone 250 mcg-salmeterol 50 1 inh inhalation BID 07/09/21 10/07/21 History mcg/dose blistr powdr for inhalation (Wixela Inhub) inhalational spacing device #1 ea 07/09/21 10/07/21 Rx Current Medications: Active Medications Sodium Chloride (Normal Saline Iv) 500 mls @ 100 mls/hr IV CONT .Q5H PARESH Sedation/Anesthesia: No previous sedation/anesthesia problems (including family history). [facility] Past Medical History Medical History Allergic rhinitis CAD (coronary artery disease) >4 METs Chronic a-fib COPD (chronic obstructive pulmonary disease) Depression History of [place] (myocardial infarction) HLD (hyperlipidemia) HTN (hypertension) Hypothyroidism Mitral valve regurgitation RONALD (obstructive sleep apnea) Smoker Pt has 45 pack year hx 1.5 ppd. Quit 2003. Type 2 diabetes mellitus without complications Surgical History Surgical History Cataract removal H/O mitral valve repair 05/2018 Hx of CABG x2 vessel, 05/2018 Family History Family History Sibling Patient's sister is in good health Father Family history of cardiovascular disease, Onset Age: 68 Social History Social History Smoking packs per day: 1.5 Smoking cigarettes per day: 30.0 Years smoked: 45 Smoking pack-years: 67.50 Smoking status: Former smoker Tobacco type: cigarettes Second hand tobacco smoke exposure: Yes Smoking end date: 02/23/03 Alcohol intake: former Substance use: current Substance use type: does not use Living arrangements: with family Gender identity (if verbalized by the patient): Male Sexual Quentin
--- NOTE | 2021-10-07 09:16 | P.PCNCC_ITS ---
Cardiac Cath Procedure Note Date of procedure:: 10/07/21 Performing physician:: Lane Ruff MD Indication:: Coronary artery disease ischemic LV dysfunction previous CABG and mitral valve repair chronic atrial fibrillation Brief clinical history:: this is a 71-year-old man reporting symptoms of in in consistent shortness of breath. He has previously undergone bypass and mitral valve repair in 2019. The left ventricular function by outpatient evaluation has been noted to be declined and for this reason follow-up angiography has been recommended. Procedure Procedure performed:: Coronary angiography vein graft angiography Sedation/Medication given:: fentanyl 50 mg Versed 2 mg case start time 8:48 a.m. case end time 9:11 a.m. Access site:: right femoral artery Estimated blood loss:: 25 cc Procedure note:: patient was brought to the cardiac catheterization lab in postabsorptive state the right femoral triangle was prepared and draped in the normal fashion. Anesthesia was given with 1% lidocaine infiltrated locally. Using a modified Seldinger technique the right femoral artery was punctured and a 5 Maltese vascular sheath was placed. Left heart catheterization was then carried out. A 5 Maltese FL4 catheter was advanced to the aortic root but folded in the root as it is somewhat dilated and would not satisfactorily engage the left main. A FL 5 catheter was which successfully engaged the left main and left coronary angiography was performed in multiple projections. Following this a 5 Maltese JR4 catheter was advanced to the aortic root. This was used to inject the eklutna right artery as well as the saphenous vein graft to the PDA and to the OM. Following this the cineangiograms were reviewed and the case was terminated. The patient was taking for manual sheath removal. The procedure was well tolerated and uncomplicated. He left the cath lab radiological technologist no evidence of groin hematoma. Findings:: Hemodynamics: Central aortic pressure is 176/80. The left main coronary artery is medium in caliber and nicely patent the left anterior descending is a medium caliber vessel it is extremely tortuous and terminates before the apex. The LAD has no significant lesions angiographically is unchanged compared with 2019. The circumflex is a medium caliber vessel that has a proximal 95% stenosis. The major obtuse marginal branch is now occluded. There is a AV groove portion of the circumflex and a small posterior branch that remain patent. The right coronary artery is 100% occluded proximally. There is some right to right collateral filling into the RPL vessel with slow filling of that vessel the RPDA is occluded. Saphenous vein graft to the right coronary artery is widely patent its proximal and distal anastomosis look unremarkable there is no degenerative disease in the graft it fills the RPDA nicely. Saphenous vein graft to the obtuse marginal is a moderate caliber segment of vein in its proximal and distal anastomosis looked unremarkable there is no degenerative disease in this graft either. It fills a OM branch that is relatively small Conclusion:: 1. severe 2 vessel coronary artery disease with occlusion of the proximal RCA which is the dominant vessel for posterior circulation and occlusion of the major OM branch of the circumflex 2. LAD which is tortuous terminates before the apex but is not significantly disease 3. patent saphenous vein graft to the RPDA 4. patent saphenous vein graft to the OM which is a relatively small vessel Lane Ruff MD [facility]
--- NOTE | 2021-10-07 11:07 | SUR.PHASEII ---
Pt resting in bed, HOB elevated to 30 degrees, no bleeding or hematoma noted, pedal pulses 1+ , no change in condition. Pt used urinal in bed, 480 ml out, pt given meal tray and is eating without difficulty. Pt at bedside. VSS, NAD noted, continue to monitor.
--- NOTE | 2021-10-07 16:05 | SUR.PHASEII ---
Pt sitting in chair, in room, discharge instructions given and discussed with patient and and reported understanding. IV removed, catheter intact, no bleeding or hematoma from groin site, pt denies pain, NAD noted. HCG to call pt tomorrow to set up follow up appointment.
== END 2021-10-07 16:07 | disposition home or self-care (01) ==
PROVIDERS: PCP Family Medicine; Visit Provider Specialist
DX: I25.10 Atherosclerotic heart disease of native coronary artery without angina pectoris (principal); R93.1 Abnormal findings on diagnostic imaging of heart and coronary circulation; I48.20 Chronic atrial fibrillation, unspecified; Z95.1 Presence of aortocoronary bypass graft; R06.00 Dyspnea, unspecified; Z79.82 Long term (current) use of aspirin; Z79.01 Long term (current) use of anticoagulants; Z79.51 Long term (current) use of inhaled steroids; J44.9 Chronic obstructive pulmonary disease, unspecified; I10 Essential (primary) hypertension; E78.5 Hyperlipidemia, unspecified; E03.9 Hypothyroidism, unspecified; I25.2 Old myocardial infarction; G47.33 Obstructive sleep apnea (adult) (pediatric); E11.9 Type 2 diabetes mellitus without complications; F32.A Depression, unspecified; Z87.891 Personal history of nicotine dependence
CPT/HCPCS: 36415; 80048; 85025; 93455; C1887; C1894; J1644; J2250; J3010; J7030; J7040

== ENCOUNTER 2021-10-08 09:48 | Outpatient (CLI) | payer MEDICARE, SELFPAY ==
--- NOTE | 2021-10-08 11:00 | NEURO_ITS ---
Impression: # Complains of bilateral numbness and tingling of hands. # This study is consistent with moderate Carpal Tunnel Syndrome bilaterally. # There is also mild bilateral sensory ulnar neuropathy. # Needle/EMG exam was normal. Nerve Conduction Studies Anti Sensory Summary Table Stim Site NR Peak (ms) P-T Amp (?V) Site1 Site2 Delta-P (ms) Dist (cm) See (m/s) Left Median Anti Sensory (2-3nd Digit) Wrist 6.2 13.6 Wrist 2-3nd Digit 6.2 14.0 23 Wrist 6.2 8.9 Wrist 2-3nd Digit 6.2 14.0 23 Right Median Anti Sensory (2-3nd Digit) Wrist 7.2 27.4 Wrist 2-3nd Digit 7.2 14.0 19 Wrist 7.1 20.1 Wrist 2-3nd Digit 7.2 14.0 19 Left Radial Anti Sensory (Base 1st Digit) Wrist 2.3 26.0 Wrist Base 1st Digit 2.3 0.0 Right Radial Anti Sensory (Base 1st Digit) Wrist 2.3 20.0 Wrist Base 1st Digit 2.3 0.0 Left Ulnar Anti Sensory (5th Digit) Wrist 3.3 24.2 Wrist 5th Digit 3.3 14.0 42 Right Ulnar Anti Sensory (5th Digit) Wrist 3.8 23.0 Wrist 5th Digit 3.8 14.0 37 Motor Summary Table Stim Site NR Onset (ms) O-P Amp (mV) Site1 Site2 Delta-0 (ms) Dist (cm) See (m/s) Left Median Motor (Abd Poll Brev) Wrist 5.9 3.6 Elbow Wrist 4.0 23.0 58 Elbow 9.9 3.1 Right Median Motor (Abd Poll Brev) Wrist 5.9 1.2 Elbow Wrist 4.6 23.0 50 Elbow 10.5 1.4 Left Ulnar Motor (Abd Dig Minimi) Wrist 3.0 6.3 A Elbow Wrist 5.8 31.0 53 A Elbow 8.8 5.5 B Elbow Wrist 4.0 23.0 58 B Elbow 7.0 6.3 Right Ulnar Motor (Abd Dig Minimi) Wrist 2.5 4.9 A Elbow Wrist 6.1 31.5 52 A Elbow 8.6 3.2 B Elbow Wrist 4.3 24.5 57 B Elbow 6.8 3.0 F Wave Studies NR F-Lat (ms) L-R F-Lat (ms) Left Median (Mrkrs) (Abd Poll Brev) 31.39 0.28 Right Median (Mrkrs) (Abd Poll Brev) 31.67 0.28 Left Ulnar (Mrkrs) (Abd Dig Min) 32.47 0.27 Right Ulnar (Mrkrs) (Abd Dig Min) 32.74 0.27 EMG Side Muscle Nerve Root Ins Act Fibs Amp Dur Recrt Comment Right 1stDorInt Ulnar C8-T1 Nml Nml Nml Nml Nml Right Ext Indicis Radial (Post Int) C7-8 Nml Nml Nml Nml Nml Right Ext Digitorum Radial (Post Int) C7-8 Nml Nml Nml Nml Nml Right BrachioRad Radial C5-6 Nml Nml Nml Nml Nml Right PronatorTeres Median C6-7 Nml Nml Nml Nml Nml Right Abd Poll Brev Median C8-T1 Nml Nml Nml Nml Nml Left 1stDorInt Ulnar C8-T1 Nml Nml Nml Nml Nml Left Ext Indicis Radial (Post Int) C7-8 Nml Nml Nml Nml Nml Left Ext Digitorum Radial (Post Int) C7-8 Nml Nml Nml Nml Nml Left BrachioRad Radial C5-6 Nml Nml Nml Nml Nml Left PronatorTeres Median C6-7 Nml Nml Nml Nml Nml Left Abd Poll Brev Median C8-T1 Nml Nml Nml Nml Nml MTDD
== END 2021-10-08 09:49 | disposition home or self-care (01) ==
LOC: ANHNEURO 09:50
PROVIDERS: PCP Family Medicine; Visit Provider Physician Assistant
DX: G56.03 Carpal tunnel syndrome, bilateral upper limbs (principal); G56.23 Lesion of ulnar nerve, bilateral upper limbs; R20.2 Paresthesia of skin
CPT/HCPCS: 95886; 95911

== ENCOUNTER 2021-11-27 10:32 | Outpatient (CLI) | payer MEDICARE, SELFPAY ==
[2021-11-27 11:24] LABS: Anion Gap 10 mmol/L (8-16); Blood Urea Nitrogen 15 mg/dL (9-20); Calcium 9.7 mg/dL (8.4-10.2); Carbon Dioxide 25 mmol/L (22-30); Chloride 102 mmol/L (98-107); Estimated Glomerular Filt Rate > 60; Glucose 107 mg/dL (65-110); Potassium 4.4 mmol/L (3.4-5.0); Sodium 137 mmol/L (137-145)
== END 2021-11-27 10:33 | disposition home or self-care (01) ==
PROVIDERS: PCP Family Medicine; Referring Provider Internal Medicine Cardiovascular Disease; Visit Provider Internal Medicine Cardiovascular Disease
DX: I50.22 Chronic systolic (congestive) heart failure (principal); E11.59 Type 2 diabetes mellitus with other circulatory complications; I15.2 Hypertension secondary to endocrine disorders; I71.20 Thoracic aortic aneurysm, without rupture, unspecified
CPT/HCPCS: 36415; 80048

== ENCOUNTER 2022-01-31 08:10 | Outpatient (CLI) | payer MEDICARE, SELFPAY ==
[2022-01-31 09:15] LABS: Alanine Aminotransferase 18 U/L (6-50); Albumin Level 4.6 g/dL (3.5-5.1); Alkaline Phosphatase 59 U/L (38-126); Anion Gap 5 mmol/L (8-16); Aspartate Amino Transferase 19 U/L (17-59); Bilirubin,Total 0.8 mg/dL (0.2-1.3); Blood Urea Nitrogen 14 mg/dL (9-20); Calcium 9.1 mg/dL (8.4-10.2); Carbon Dioxide 27 mmol/L (22-30); Chloride 104 mmol/L (98-107); Estimated Glomerular Filt Rate > 60; Glucose 109 mg/dL (65-110); Potassium 4.7 mmol/L (3.4-5.0); Sodium 136 mmol/L (137-145)
[2022-01-31 09:17] LABS: Hemoglobin A1C 6.3 % (<5.7)
== END 2022-01-31 08:11 | disposition home or self-care (01) ==
PROVIDERS: PCP Family Medicine; Visit Provider Physician Assistant
DX: I10 Essential (primary) hypertension (principal); E11.9 Type 2 diabetes mellitus without complications; E03.9 Hypothyroidism, unspecified
CPT/HCPCS: 36415; 80053; 83036; 84443

== ENCOUNTER → 2022-07-15 08:13 | Outpatient (CLI) | payer MEDICARE, SELFPAY ==
--- NOTE | ~2022-07-15 | US_ITS ---
EXAMINATION: US carotid duplex BI DATE: 07/15/2022 08:39 INDICATION: Coronary artery disease TECHNIQUE: Grayscale, color Doppler, and pulsed Doppler images of the cervical carotid arteries were obtained. The degree of vessel stenosis is placed in one of the following categories: normal, <50%, 5 0-69%, >=70% but less than near-occlusion, near-occlusion, or total occlusion. Note that percent sten osis relative to normal distal artery lumen diameter is indirectly measured from velocity measurement s as described by Rc, et al. Radiology 2003; 229:340-346. Notes: Normal: Peak systolic velocity <125 centimeters/sec and no plaque <50%. Peak systolic velocity <125 ( EDV <40; ICA/CCA PSV ratio <2.0; used these factors only a tandem lesions or low cardiac output or co ntralateral disease) 50-69 %: PSV 125-230 (EDV 40-100; ratio 2-4) >= 70% but less than near occlusion: PSV greater than 230 (EDV > 100; ratio> 4.0) Near Occlusion: PSV that is variable; markedly narrowed lumen Occlusion: Absent flow on color/spectral Doppler and no lumen on rubi scale. COMPARISON: None. FINDINGS: RIGHT: The right common carotid artery (CCA) peak systolic velocity (PSV) is 63 cm/s. The right internal car otid artery (ICA) PSV is 64 cm/s. The right ICA end-diastolic velocity (EDV) is 11 cm/s. The right IC A/CCA PSV ratio is 1.0. The external carotid artery (ECA) PSV is 90 cm/s. There is antegrade flow in the right vertebral artery. LEFT: The left CCA PSV is 77 cm/s. The left ICA PSV is 91 cm/s. The left ICA EDV is 19 cm/s. The left ICA/C CA PSV ratio is 1.2. The ECA PSV is 113 cm/s. There is antegrade flow in the left vertebral artery. IMPRESSION: 1. Less than 50% stenosis in the right internal carotid artery by sonographic criteria. 2. Less than 50% stenosis in the left internal carotid artery by sonographic criteria. Reviewed, dictated and finalized at [facility]. IMPRESSION: 1. Less than 50% stenosis in the right internal carotid artery by sonographic nicky anguiano. 2. Less than 50% stenosis in the left internal carotid artery by sonographic kyle guillermo.
== END ==
PROVIDERS: PCP Family Medicine; Visit Provider Internal Medicine Cardiovascular Disease
DX: I25.118 Atherosclerotic heart disease of native coronary artery with other forms of angina pectoris (principal); E11.69 Type 2 diabetes mellitus with other specified complication; E78.5 Hyperlipidemia, unspecified; I15.2 Hypertension secondary to endocrine disorders; E11.59 Type 2 diabetes mellitus with other circulatory complications; R09.89 Other specified symptoms and signs involving the circulatory and respiratory systems; I65.23 Occlusion and stenosis of bilateral carotid arteries
CPT/HCPCS: 93880

== ENCOUNTER 2022-07-15 08:46 | Outpatient (CLI) | payer MEDICARE, SELFPAY ==
[2022-07-15 21:17] LABS: Alanine Aminotransferase 18 U/L (6-50); Albumin Level 4.3 g/dL (3.5-5.1); Alkaline Phosphatase 52 U/L (38-126); Anion Gap 9 mmol/L (8-16); Aspartate Amino Transferase 37 U/L (17-59); Bilirubin,Total 0.9 mg/dL (0.2-1.3); Blood Urea Nitrogen 15 mg/dL (9-20); Calcium 9.3 mg/dL (8.4-10.2); Carbon Dioxide 27 mmol/L (22-30); Chloride 102 mmol/L (98-107); Estimated Glomerular Filt Rate > 60; Glucose 96 mg/dL (65-110); Potassium 4.3 mmol/L (3.4-5.0); Sodium 138 mmol/L (137-145)
[2022-07-15 21:26] LABS: Hemoglobin A1C 6.3 % (<5.7)
== END 2022-07-15 08:47 | disposition home or self-care (01) ==
LOC: ANHGOSHLAB 08:47
PROVIDERS: PCP Family Medicine; Visit Provider Physician Assistant
DX: E03.9 Hypothyroidism, unspecified (principal); E11.9 Type 2 diabetes mellitus without complications; I10 Essential (primary) hypertension
CPT/HCPCS: 36415; 80053; 83036; 84443

== ENCOUNTER 2022-10-31 08:19 | Outpatient (CLI) | payer MEDICARE, SELFPAY ==
[2022-10-31 13:04] LABS: Appearance Urine Clear (Clear); Bilirubin Urine Negative (Negative); Blood Urine Negative (Negative); Color Urine Yellow (Yellow); Glucose Urine UA Negative (Negative); Ketones Urine Negative (Negative); Leukocyte Esterase Ur Negative LEU/UL (NEGATIVE); Nitrate Urine Negative (Negative); Protein Urine Negative (Negative); Specific Grav Ur 1.009 (1.001-1.035); Urobilinogen Urine 0.2 mg/dL (<2.0)
[2022-10-31 13:06] LABS: Basophils Absolute Auto 0.1 K/mm3 (0.0-0.1); Basophils Percent Auto 0.8 % (0.2-1.2); Eosinophils Absolute Auto 0.2 K/mm3 (0-0.3); Eosinophils Percent Auto 2.3 % (0-4.4); Hemoglobin 14.2 g/dL (14.0-18.0); Immature Granulocyte Absolute 0.05 K/mm3 (0.00-0.031); Immature Granulocyte Percent A 0.6 % (0-0.5); Lymphocytes Absolute Auto 2.23 K/mm3 (0.9-3.2); Lymphocytes Percent Auto 28.1 % (18.3-44.2); Mean Corpuscular HGB Conc 32.3 g/dl (32-36); Mean Corpuscular Hemoglobin 30.4 pg (26-34); Mean Corpuscular Volume 94.2 fl (80-100); Mean Platelet Volume 9.4 fl (7.4-10.4); Monocytes Absolute Auto 0.6 K/mm3 (0.1-0.6); Monocytes Percent Auto 7.1 % (2.6-8.5); Neutrophils Absolute Auto 4.9 K/mm3 (1.3-6.7); Neutrophils Percent Auto 61.1 % (45.5-73.1); Platelet Count Result 248 k/mm3 (150-375); Red Blood Count 4.67 M/mm3 (4.6-6.20); Red Cell Distribution Width 12.7 % (11.5-14.5); White Blood Count 7.9 K/mm3 (4.5-10.0)
[2022-10-31 13:23] LABS: Add Urine Microscopic? NO
[2022-10-31 13:32] LABS: Alanine Aminotransferase 16 U/L (6-50); Albumin Level 4.3 g/dL (3.5-5.1); Alkaline Phosphatase 53 U/L (38-126); Anion Gap 8 mmol/L (8-16); Aspartate Amino Transferase 38 U/L (17-59); Bilirubin,Total 0.6 mg/dL (0.2-1.3); Blood Urea Nitrogen 13 mg/dL (9-20); Calcium 9.1 mg/dL (8.4-10.2); Carbon Dioxide 27 mmol/L (22-30); Chloride 101 mmol/L (98-107); Cholesterol 107 mg/dL (0-200); Estimated Glomerular Filt Rate > 60; Glucose 99 mg/dL (65-110); HDL Direct 27 mg/dL; Potassium 4.6 mmol/L (3.4-5.0); Sodium 136 mmol/L (137-145); Triglycerides 61 mg/dL (<150)
[2022-10-31 13:38] LABS: Creatinine Urine 54.1 mg/dL
[2022-10-31 13:44] LABS: Iron 76 ug/dL (49-181); LDL Cholesterol Direct 68 mg/dL
[2022-10-31 13:48] LABS: MALB Creatinine Ratio < 11.1 mg/g (0-30); Microalbumin Urine Random < 6.0 mg/L (0-16.7)
[2022-10-31 13:55] LABS: Percent Iron Saturation 19 % (20-50)
[2022-10-31 14:33] LABS: Folic Acid > 20.0 ng/mL (2.76->20)
== END 2022-10-31 08:20 | disposition home or self-care (01) ==
PROVIDERS: PCP Family Medicine; Visit Provider Physician Assistant
DX: D64.9 Anemia, unspecified (principal); E03.9 Hypothyroidism, unspecified; I10 Essential (primary) hypertension; J44.9 Chronic obstructive pulmonary disease, unspecified; E11.9 Type 2 diabetes mellitus without complications
CPT/HCPCS: 36415; 80053; 80061; 81003; 82043; 82607; 82728; 82746; 83036; 83540; 83550; 84443; 85025

== ENCOUNTER 2023-01-01 12:49 | Outpatient (CLI) | payer MEDICARE, SELFPAY ==
--- NOTE | ~2023-01-01 | CT_ITS ---
EXAMINATION: CT diagnostic chest wo con DATE: 01/01/2023 13:31 INDICATION: Aortic aneurysm without rupture TECHNIQUE: Computed tomography (CT) of the chest was performed without intravenous contrast. The dose -length product (DLP) was 548.52 mGy-cm. Automated exposure control and iterative reconstruction tech Therm[employer] Process Control[employer] were employed. COMPARISON: 08/28/2021 FINDINGS: There is a stable fusiform aneurysm of the ascending aorta measuring 4.7 cm at the level of the main pulmonary artery. The aorta measures 4 cm at the sinuses of Valsalva. No dissection is iden tified. Cardiomegaly is noted. Multiple small pulmonary nodules are again noted, consistent with old granulomatous disease. There is a 12 mm nodule of the right lower lobe abutting the hemidiaphragm (im age 89). There are no pathologically enlarged thoracic lymph nodes. No pleural effusion or pneumotho rax. There are bridging osteophytes at multiple levels in the spine, consistent with diffuse idiopath ic skeletal hyperostosis (DISH). There appears to be mild nodularity of the liver surface, consisten t with cirrhosis. IMPRESSION: 1. Stable fusiform aneurysm of the ascending aorta. 2. 12 mm nodule of the right lower lobe abutting the diaphragm which may be infectious or inflammator y. Follow-up low-dose CT in three months is recommended. Reviewed, dictated and finalized at location [facility]. MDS COORDINATOR IMPRESSION: 1. Stable fusiform aneurysm of the ascending aorta. 2. 12 mm nodule of the right lower lobe abutting the diaphragm which may be inf ectious or inflammatory. Follow-up low-dose CT in three months is recommended.
== END 2023-01-01 12:50 | disposition home or self-care (01) ==
LOC: ANHIMG 12:54
PROVIDERS: PCP Family Medicine; Visit Provider Internal Medicine Cardiovascular Disease
DX: I71.40 Abdominal aortic aneurysm, without rupture, unspecified (principal); R91.1 Solitary pulmonary nodule
CPT/HCPCS: 71250

== ENCOUNTER 2023-03-11 14:50 | Outpatient (CLI) | payer MEDICARE, SELFPAY ==
[2023-03-11 15:43] LABS: Alanine Aminotransferase 14 U/L (6-50); Albumin Level 4.7 g/dL (3.5-5.1); Alkaline Phosphatase 43 U/L (38-126); Anion Gap 13 mmol/L (8-16); Aspartate Amino Transferase 20 U/L (17-59); Bilirubin,Total 0.9 mg/dL (0.2-1.3); Blood Urea Nitrogen 17 mg/dL (9-20); Calcium 9.3 mg/dL (8.4-10.2); Carbon Dioxide 24 mmol/L (22-30); Chloride 100 mmol/L (98-107); Estimated Glomerular Filt Rate > 60; Glucose 95 mg/dL (65-110); Potassium 4.6 mmol/L (3.4-5.0); Sodium 137 mmol/L (137-145)
[2023-03-11 16:43] LABS: Hemoglobin A1C 6.3 % (<5.7)
== END 2023-03-11 14:51 | disposition home or self-care (01) ==
PROVIDERS: PCP Family Medicine; Visit Provider Physician Assistant
DX: I10 Essential (primary) hypertension (principal); E11.9 Type 2 diabetes mellitus without complications
CPT/HCPCS: 36415; 80053; 83036

== ENCOUNTER 2023-04-16 08:26 | Outpatient (CLI) | payer MEDICARE, SELFPAY ==
--- NOTE | ~2023-04-16 | CT_ITS ---
CT Scan of the Chest without Contrast: Clinical Indication: Pulmonary nodule Technique: Contiguous sections were acquired throughout the chest without intravenous contrast. Dose reduction technique was used on this scan by utilizing automated exposure control and iterative recon struction technique. The dose-length product (DLP) was 259.20 mGy-cm. COMPARISON: 01/01/2023 Findings: There is no evidence of any significant mediastinal, hilar or axillary lymphadenopathy. There are ath erosclerotic calcifications of the aorta and coronary arteries. Ascending aorta measures 4. Centimete rs in diameter. There is no evidence of pleural or pericardial effusion. Several scattered subcentimeter pulmonary nodules bilaterally are unchanged. Focal area of groundglas s opacity noted left upper lobe, nonspecific. Images through the upper abdomen reveal no abnormalities. Impression: Several scattered subcentimeter pulmonary nodules are unchanged. Larger nodule seen on prior exam adjacent to the right hemidiaphragm on prior exam has resolved. Focal area of mild groundglass opacity left upper lobe, nonspecific. Focal pneumonitis is a considera tion. Stable ascending aortic aneurysm. Reviewed, dictated and finalized at [facility]. ROOM ASSOCIATE Impression: Several scattered subcentimeter pulmonary nodules are unchanged. Larger nodule seen on prior exam adjacent to the right hemidiaphragm on prior e xam has resolved. Focal area of mild groundglass opacity left upper lobe, nonspecific. Focal pneu monitis is a consideration. Stable ascending aortic aneurysm.
== END 2023-04-16 08:27 | disposition home or self-care (01) ==
LOC: ANHIMG 08:28
PROVIDERS: PCP Family Medicine; Visit Provider Nurse Practitioner Family
DX: R91.1 Solitary pulmonary nodule (principal); R91.8 Other nonspecific abnormal finding of lung field; I71.40 Abdominal aortic aneurysm, without rupture, unspecified
CPT/HCPCS: 71250

== ENCOUNTER 2023-07-28 08:36 | Outpatient (CLI) | payer MEDICARE, SELFPAY ==
[2023-07-28 13:37] LABS: Appearance Urine Clear (Clear); Bilirubin Urine Negative (Negative); Blood Urine Negative (Negative); Color Urine Yellow (Yellow); Glucose Urine UA Negative (Negative); Ketones Urine Negative (Negative); Leukocyte Esterase Ur Negative LEU/UL (Negative); Nitrate Urine Negative (Negative); Protein Urine Negative (Negative); Specific Grav Ur 1.005 (1.001-1.035); Urobilinogen Urine 0.2 mg/dL (<2.0); pH Urine 5.5 (5.0-9.0)
[2023-07-28 13:41] LABS: Alanine Aminotransferase 14 U/L (6-50); Albumin Level 4.4 g/dL (3.5-5.1); Alkaline Phosphatase 69 U/L (38-126); Anion Gap 9 mmol/L (4-12); Aspartate Amino Transferase 50 U/L (17-59); Bilirubin,Total 0.7 mg/dL (0.2-1.3); Blood Urea Nitrogen 17 mg/dL (9-20); Calcium 9.3 mg/dL (8.4-10.2); Carbon Dioxide 24 mmol/L (22-30); Chloride 104 mmol/L (98-107); Estimated Glomerular Filt Rate > 60; Glucose 120 mg/dL (65-110); Potassium 4.3 mmol/L (3.4-5.0); Sodium 137 mmol/L (137-145)
[2023-07-28 14:10] LABS: Add Urine Microscopic? NO
== END 2023-07-28 08:37 | disposition home or self-care (01) ==
PROVIDERS: PCP Family Medicine; Visit Provider Physician Assistant
DX: I10 Essential (primary) hypertension (principal); R35.1 Nocturia; E03.9 Hypothyroidism, unspecified; E11.9 Type 2 diabetes mellitus without complications
CPT/HCPCS: 36415; 80053; 81003; 83036; 84443; 87086

== ENCOUNTER 2023-12-08 08:18 | Outpatient (CLI) | payer MEDICARE, SELFPAY ==
[2023-12-08 08:51] LABS: Add Urine Microscopic? NO; Appearance Urine Clear (Clear); Bilirubin Urine Negative (Negative); Blood Urine Negative (Negative); Color Urine Yellow (Yellow); Glucose Urine UA Negative (Negative); Ketones Urine Negative (Negative); Leukocyte Esterase Ur Negative LEU/UL (Negative); Nitrate Urine Negative (Negative); Protein Urine Negative (Negative); Specific Grav Ur 1.009 (1.001-1.035); Urobilinogen Urine 0.2 mg/dL (<2.0); pH Urine 7.5 (5.0-9.0)
[2023-12-08 09:00] LABS: Cholesterol 113 mg/dL (0-200); HDL Direct 32 mg/dL; Triglycerides 74 mg/dL (<150)
[2023-12-08 09:10] LABS: LDL Cholesterol Direct 58 mg/dL
[2023-12-08 09:29] LABS: Iron 87 ug/dL (49-181)
[2023-12-08 09:35] LABS: Creatinine Urine 40.8 mg/dL
[2023-12-08 09:40] LABS: Percent Iron Saturation 23 % (20-50)
[2023-12-08 10:04] LABS: MALB Creatinine Ratio < 14.7 mg/g (0-30); Microalbumin Urine Random < 6.0 mg/L (0-16.7)
== END 2023-12-08 08:19 | disposition home or self-care (01) ==
PROVIDERS: PCP Family Medicine; Visit Provider Physician Assistant
DX: I48.20 Chronic atrial fibrillation, unspecified (principal); E11.9 Type 2 diabetes mellitus without complications; I10 Essential (primary) hypertension; E03.9 Hypothyroidism, unspecified; J44.9 Chronic obstructive pulmonary disease, unspecified; I25.10 Atherosclerotic heart disease of native coronary artery without angina pectoris; E78.5 Hyperlipidemia, unspecified; I71.40 Abdominal aortic aneurysm, without rupture, unspecified; D64.9 Anemia, unspecified
CPT/HCPCS: 36415; 80061; 81003; 82043; 82728; 83540; 83550

== ENCOUNTER 2024-02-19 10:53 | Outpatient (CLI) | payer MEDICARE, SELFPAY ==
--- NOTE | ~2024-02-19 | CT_ITS ---
CT Scan of the Chest without Contrast: Clinical Indication: Ascending aortic aneurysm Technique: Contiguous sections were acquired throughout the chest without intravenous contrast. Dose reduction technique was used on this scan by utilizing automated exposure control and iterative recon struction technique. The dose-length product (DLP) was 433.50 mGy-cm. COMPARISON: 04/16/2023 Findings: There is no evidence of any significant mediastinal, hilar or axillary lymphadenopathy. Status post p robable CABG. Ascending aorta measures 4.8 cm in diameter. There is no evidence of pleural or pericardial effusion. Stable 3 mm right upper lobe pulmonary nodule. Images through the upper abdomen reveal small calcified gallstone. There is partially imaged infraren al abdominal aortic aneurysm measuring at least 5 cm in diameter.. Impression: Ascending aortic aneurysm measures 4.8 cm in diameter. Partially imaged infrarenal abdominal aortic aneurysm measures at least 5 cm in diameter. Reviewed, dictated and finalized at [facility]. ARCH NURSE Impression: Ascending aortic aneurysm measures 4.8 cm in diameter. Partially imaged infrarenal abdominal aortic aneurysm measures at least 5 cm in diameter.
--- OUTSIDE RECORDS SUMMARY | 2024-02-27 00:14 | XMS_ITS | Continuity of Care Document ---
Author Name [facility] Organization [facility] Care Team Providers Care Ergonomics Engineer Name Role Phone [facility] Unavailable Unavailable Problems Combined list of problems from Department of Defense and Veterans Affairs facilities. It does not include entries that were removed or entered in error. Problem Status Onset Date Problem Type Date of Resolution Comments Source Abdominal aortic aneurysm without rupture Active Condition Jan 20, 2018 Entered By: JOÃO XIE Comment: 04/2017 4.3 CM AAA per screening u/s perfomed in [place] VAD 2018 Entered By: JOÃO XIE Comment: 11/2018 4.5 cm AAA per ultrasound performed by [facility] (Dr. Micheal Viveros) [facility] Aneurysm of thoracic aorta Active Condition Feb 20, 2019 Entered By: JOÃO XIE Comment: 11/2018 4.9 cm ascending thoracic aortic aneurysm. Followed by Dr. Micheal Viveros,( vascular surgery-[facility]). [facility] Anticoagulant effect Active Condition [facility] Arteriosclerotic heart disease Active Condition Dec 26, 2016 Entered By: DAHIANA MATHIAS Comment: mitral aortic valve disease dilated aortic rootMay 2018 Entered By: JOÃO XIE Comment: Emilee 05/24/18: 2V CABG (SVA-OM, SVA-PDA) and mitral valve repair [facility] Asymptomatic carotid artery stenosis Active Condition [facility] Atrial fibrillation Active Condition [facility] Chronic obstructive lung disease Active Condition [facility] Congestive heart failure Active Condition Nov 25, 2021 Entered By: LIANA GILMORE Comment: EF 35% 08/2021 [facility] Depression Active Condition [facility] Exposure to potentially hazardous substance Active Condition [facility] HT - Hypertension Active Condition [facility] Hyperlipidemia Active Condition [facility] Hypothyroidism (SCT [id number]) Active Condition [facility] Sleep apnea Active Condition Dec 26, 2016 Entered By: DAHIANA MATHIAS Comment: treated with [facility] Therapeutic drug effect Active Condition [facility] Type 2 diabetes mellitus well controlled Active Condition [facility] Diagnosis: ICD-10-CM H90.3 Sensorineural hearing loss, bilateral Active Diagnosis [facility] Diagnosis: ICD-10-CM Z00.00 Encntr for general adult medical exam w/o abnormal findings Active Diagnosis [facility] Diagnosis: ICD-10-CM H34.231 Retinal artery branch occlusion, right eye Active Diagnosis [facility] Diagnosis: ICD-10-CM Z51.81 Encounter for therapeutic drug level monitoring Active Diagnosis [facility] Diagnosis: ICD-10-CM I25.10 Athscl heart disease of [place] coronary artery w/o ang pctrs Active Diagnosis [facility] Diagnosis: ICD-10-CM H34.212 Partial retinal artery occlusion, left eye Active Diagnosis [facility] Medications Combined list of outpatient medications from Department of Defense and [facility] facilities.Medications provided include 1) outpatient medications from the last 15 months, and 2) patient-reported medications. Medication Details Route Status Patient Instructions Prescription Expires Prescription Number Last Dispense Date Ordering Provider Order Date Order Qty Source ALBUTEROL SO4 90MCG/ACTUA T (CFC-F) INHL,ORAL,8 .5GM INHALE 2 PUFFS BY ORAL INHALATI ON FOUR TIMES A DAY NEEDED FOR BREATHIN G. SHAKE WELL. RINSE MOUTHPIE CE FREQUENT LY TO PREVENT CLOGGING . RESPIR ATORY (INHAL ATION) 10/10/2023 [id number] 4 GILMORE,A RMIDA A 2022 4 [facility] AMLODIPINE BESYLATE 5MG TAB TAKE ONE TABLET BY MOUTH ONCE A DAY FOR HEART/BL OOD PRESSURE ORAL ACTIVE 09/09/2024 [id number] 4 CODYSAGEI SSA S 2023 90 [facility] AMLODIPINE BESYLATE 5MG TAB TAKE ONE TABLET BY MOUTH ONCE A DAY FOR HEART/BL OOD PRESSURE ORAL DISCONT INUED 10/10/2023 [id number] 4 GILMORE,A RMIDA A 2022 90 [facility] ASPIRIN 81MG TAB,EC TAKE ONE TABLET BY MOUTH ONCE A DAY ORAL ACTIVE DAYANNA MALIK 2018 [facility] ATORVASTATI N CA 80MG TAB TAKE ONE-HALF TABLET BY MOUTH EVERY EVENING FOR CHOLESTE ROL. REPORT ANY UNEXPLAI ROBYN MUSCLE PAIN/WEA KNESS TO PROVIDER . ORAL SUSPEND ED 09/09/2024 [id number] 5 ANAY ROSS SSA S 2023 45 [facility] ATORVASTATI N CA 80MG TAB TAKE ONE-HALF TABLET BY MOUTH EVERY EVENING FOR CHOLESTE ROL. REPORT ANY UNEXPLAI ROBYN MUSCLE PAIN/WEA KNESS TO PROVIDER . ORAL DISCONT INUED 10/10/2023 [id number] 4 GILMORE,A RMIDA A 2022 45 [facility] FLUTICASONE 250MCG/SALM ETEROL 50MCG INHL,ORAL,D ISKUS,60 INHALE 1 PUFF BY ORAL INHALATI ON TWICE A DAY FOR BREATHIN G (OPEN DISKUS; CLICK ONLY ONCE; MAY INHALE TWICE TO COMPLETE DOSE; CLOSE WHEN FINISHED ) RINSE MOUTH AND SPIT AFTER EACH USE. RESPIR ATORY (INHAL ATION) ACTIVE 11/02/2024 [id number] 4 GILMORE,A RMIDA A 2023 3 [facility] FLUTICASONE 250MCG/SALM ETEROL 50MCG INHL,ORAL,D ISKUS,60 INHALE 1 PUFF BY ORAL INHALATI ON TWICE A DAY FOR BREATHIN G (OPEN DISKUS; CLICK ONLY ONCE; MAY INHALE TWICE TO COMPLETE DOSE; CLOSE WHEN FINISHED ) RINSE MOUTH AND SPIT AFTER EACH USE. RESPIR ATORY (INHAL ATION) DISCONT INUED 12/09/2023 [id number] 4 ANAY ROSS SSA S 2023 3 [facility] FLUTICASONE 250MCG/SALM ETEROL 50MCG INHL,ORAL,D ISKUS,60 INHALE 1 PUFF BY ORAL INHALATI ON TWICE A DAY FOR BREATHIN G (OPEN DISKUS; CLICK ONLY ONCE; MAY INHALE TWICE TO COMPLETE DOSE; CLOSE WHEN FINISHED ) RINSE MOUTH AND SPIT AFTER EACH USE. RESPIR ATORY (INHAL ATION) DISCONT INUED 12/08/2023 [id number] 4 COYDANAY SSA S 2023 3 [facility] FLUTICASONE 250MCG/SALM ETEROL 50MCG INHL,ORAL,D ISKUS,60 INHALE 1 PUFF BY ORAL INHALATI ON TWICE A DAY FOR BREATHIN G (OPEN DISKUS; CLICK ONLY ONCE; MAY INHALE TWICE TO COMPLETE DOSE; CLOSE WHEN FINISHED ) RINSE MOUTH AND SPIT AFTER EACH USE. RESPIR ATORY (INHAL ATION) DISCONT INUED 11/05/2023 [id number] 4 GILMORE,A RMIDA A 2023 3 [facility] FLUTICASONE 250MCG/SALM ETEROL 50MCG INHL,ORAL,D ISKUS,60 INHALE 1 PUFF BY ORAL INHALATI ON TWICE A DAY FOR BREATHIN G (OPEN DISKUS; CLICK ONLY ONCE; MAY INHALE TWICE TO COMPLETE DOSE; CLOSE WHEN FINISHED ) RINSE MOUTH AND SPIT AFTER EACH USE. RESPIR ATORY (INHAL ATION) DISCONT INUED 07/16/2023 [id number] 4 GILMORE,A RMIDA A 2022 3 [facility] FLUTICASONE PROPIONATE 50MCG/SPRAY SOLN,NASAL, 16GM INSTILL 2 SPRAYS IN EACH NOSTRIL ONCE A DAY FOR ALLERGIE S (MUST BE USED DIRECTED FOR MINIMUM OF 21 DAYS TO PROVIDE ADEQUATE BENEFITS ) NASAL ACTIVE 07/29/2024 [id number] 4 ME COURTNEY TTISA 2023 3 [facility] FLUTICASONE PROPIONATE 50MCG/SPRAY SOLN,NASAL, 16GM INSTILL 2 SPRAYS IN EACH NOSTRIL ONCE A DAY FOR ALLERGIE S (MUST BE USED DIRECTED FOR MINIMUM OF 21 DAYS TO PROVIDE ADEQUATE BENEFITS ) NASAL DISCONT INUED 07/16/2023 [id number] 4 GILMORE,A RMIDA A 2022 3 [facility] FUROSEMIDE 20MG TAB TAKE ONE TABLET BY MOUTH EVERY MORNING FOR FLUID RETENTIO N ORAL ACTIVE 09/09/2024 [id number] 4 CODYANAY Melchor SSA S [address] [place] [address] FUROSEMIDE 20MG TAB TAKE ONE TABLET BY MOUTH EVERY MORNING FOR FLUID RETENTIO N ORAL DISCONT INUED 10/10/2023 [id number] 4 GILMORE,A RMIDA A 2022 90 [facility] LEVOTHYROXI NE NA 137MCG TAB (SYNTHROID) TAKE ONE TABLET BY MOUTH EVERY MORNING BEFORE A MEAL FOR THYROID. TAKE 30 MINUTES BEFORE FOOD. TAKE SEPARATE LY FROM ALL OTHER MEDICATI ONS. ORAL ACTIVE 09/09/2024 [id number] 5 [facility] S[facility] S 2023 90 [facility] LEVOTHYROXI NE NA 137MCG TAB (SYNTHROID) TAKE ONE TABLET BY MOUTH EVERY MORNING BEFORE A MEAL FOR THYROID. TAKE 30 MINUTES BEFORE FOOD. TAKE SEPARATE LY FROM ALL OTHER MEDICATI ONS. ORAL DISCONT INUED 07/16/2023 [id number] 4 GILMORE,A RMIDA A 2022 90 [facility] METOPROLOL TARTRATE 50MG TAB TAKE ONE-HALF TABLET BY MOUTH TWICE A DAY FOR HEART/BL OOD PRESSURE . TAKE WITH OR IMMEDIAT SANDEE FOLLOWIN G FOOD. ORAL ACTIVE 09/09/2024 [id number] 5 CODY,ANAY SSA S 2023 90 [facility] METOPROLOL TARTRATE 50MG TAB TAKE ONE-HALF TABLET BY MOUTH TWICE A DAY FOR HEART/BL OOD PRESSURE . TAKE WITH OR IMMEDIAT SANDEE FOLLOWIN G FOOD. ORAL DISCONT INUED 11/25/2023 [id number] 4 GILMORE,A RMIDA A 2022 90 [facility] MONTELUKAST NA 10MG TAB TAKE ONE TABLET BY MOUTH EVERY EVENING ORAL SUSPEND ED 09/09/2024 [id number] 5 SAGE ROSSI SSA S 2023 90 [facility] MONTELUKAST NA 10MG TAB TAKE ONE TABLET BY MOUTH EVERY EVENING ORAL DISCONT INUED 07/16/2023 [id number] 4 GILOMRE,A RMIDA A 2022 90 [facility] JHONNY N RIVAROXABAN 20MG TAB TAKE ONE TABLET BY MOUTH EVERY EVENING TO THIN BLOOD. TAKE WITH FOOD. ORAL ACTIVE 09/09/2024 [id number] 4 SAGE ROSSI SSA S 2023 90 [facility] RIVAROXABAN 20MG TAB TAKE ONE TABLET BY MOUTH EVERY EVENING TO THIN BLOOD. TAKE WITH FOOD. ORAL DISCONT INUED 11/25/2023 [id number] 4 GILMORE,A RMIDA A 2022 90 [facility] SACUBITRIL 97MG/VALSAR LEIGH 103MG TAB TAKE ONE-HALF TABLET BY MOUTH TWICE A DAY FOR HEART ORAL ACTIVE 09/09/2024 [id number] 4 SAGE ROSSI SSA S 2023 90 [facility] SACUBITRIL 97MG/VALSAR LEIGH 103MG TAB TAKE ONE-HALF TABLET BY MOUTH TWICE A DAY FOR HEART ORAL DISCONT INUED 10/10/2023 [id number] 4 GILMORE,A RMIDA A 2022 90 [facility] SALIVA,ALMAZ FICIAL SPRAY,ORAL TAKE 3-5 SPRAYS BY MOUTH EVERY TWO HOURS NEEDED TO RELIEVE DRY MOUTH AND THROAT. ORAL ACTIVE 09/09/2024 [id number] 4 SAGE ROSSI SSA S 2023 236 [facility] SALIVA,ALMAZ FICIAL SPRAY,ORAL TAKE 3-5 SPRAYS BY MOUTH EVERY TWO HOURS NEEDED TO RELIEVE DRY MOUTH AND THROAT. ORAL DISCONT INUED 07/16/2023 [id number] 4 GIMLORE,A RMIDA A 2022 236 [facility] SERTRALINE HCL 100MG TAB TAKE ONE TABLET BY MOUTH EVERY MORNING FOR MOOD ORAL ACTIVE 09/09/2024 [id number] 5 CODY,ANAY SSA S 2023 90 [facility] SERTRALINE HCL 100MG TAB TAKE ONE TABLET BY MOUTH EVERY MORNING FOR MOOD ORAL DISCONT INUED 11/25/2023 [id number] 4 GILMORE,A RMIDA A 2022 90 [facility] TIOTROPIUM 2.5MCG/ACTU AT INHL,ORAL,6 0D,4GM INHALE 2 INHALATI ONS BY ORAL INHALATI ON ONCE A DAY (ADMINIS TER AT SAME TIME EACH DAY) FOR BREATHIN G. RESPIR ATORY (INHAL ATION) ACTIVE 07/29/2024 [id number] 4 ME COURTNEY TTISA 2023 3 [facility] TIOTROPIUM 2.5MCG/ACTU AT INHL,ORAL,6 0D,4GM INHALE 2 INHALATI ONS BY ORAL INHALATI ON ONCE A DAY (ADMINIS TER AT SAME TIME EACH DAY) FOR BREATHIN G. RESPIR ATORY (INHAL ATION) DISCONT INUED 07/16/2023 [id number] 4 DEIRDREA RMIDA A 2022 3 [facility] Immunizations Combined list of available immunizations from the Department of Defense and Veterans Affairs facilities. 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 Status Comments Source COVID-19 ([employer]), MRNA, LNP-S, PF, NICK-SUCROSE, 30 MCG/0.3 ML (AGES 12+ YEARS) 3 2022 309 complet ed [facility] INFLUENZA, ADJUVANTED, QUADRIVALENT, PF 1 2022 205 complet ed [facility] RSV, RECOMBINANT, PROTEIN SUBUNIT RSVPREF, ADJUVANT RECONSTITUTED , 0.5 ML, PF 2022 303 complet ed [facility] COVID-19 ([facility]), MRNA, LNP-S, BIVALENT, PF, 30 MCG/0.3 ML DOSE 2 2021 300 complet ed [facility] INFLUENZA, HIGH-DOSE, QUADRIVALENT 4 2021 197 complet ed [facility] (PFIZER), MRNA, LNP-S, PF, 30 MCG/0.3 ML DOSE 1 2020 208 complet ed [facility] INFLUENZA, HIGH-DOSE, QUADRIVALENT 3 2020 197 complet ed [facility] COVID-19 ([facility]), MRNA, LNP-S, PF, 30 MCG/0.3 ML DOSE 2 2020 208 complet ed PFR; [id number]; [address] [facility] COVID-19 (PFIZER), MRNA, LNP-S, PF, 30 MCG/0.3 ML DOSE 1 2020 208 complet ed PFR; [id number]; [address] [facility] INFLUENZA, RECOMBINANT, QUADRIVALENT, INJECTABLE, PRESERVATIVE FREE 2 2019 185 complet ed [facility] INFLUENZA, UNSPECIFIED FORMULATION 2018 88 complet ed per [facility] PNEUMOCOCCAL POLYSACCHARID E PPV23 2017 33 complet ed [facility] INFLUENZA, UNSPECIFIED FORMULATION 2017 88 complet ed per [facility] ZOSTER RECOMBINANT 2 2017 187 complet ed [facility] ZOSTER RECOMBINANT 1 2017 187 complet ed [facility] INFLUENZA, INJECTABLE, QUADRIVALENT, PRESERVATIVE FREE 2016 150 complet ed [facility] PNEUMOCOCCAL CONJUGATE PCV 13 2016 133 complet ed [facility] INFLUENZA, HIGH DOSE SEASONAL 1 2014 135 complet ed [facility] Results Combined list of recent chemistry, hematology and other laboratory results from Department of Defense and Veterans Affairs, ranging from 15 months to all on record, depending upon the facility. Order Name Results Value Reference Range Date Interpretation Specimen Comments Source THYROXINE THYROXINE (T4) [MASS/VOLUM E] IN SERUM OR PLASMA 6.07 ug/dL 4.5 - 12 10/05 Specimen Type: SERUM Comment: The listed sex of this patient may not be a typical indication for this test. Therefore, reference ranges or interpretive criteria listed may not be valid. Clinical correlation suggested. Ordering Provider: SANJEEV ROSS Report Released Date/Time: Sep 09, 2023 11:53 AM Reporting Lab: [facility] [address] [place] [phone] Performing Lab: [place] [id number] B12 COBALAMIN (VITAMIN B12) [MASS/VOLUM E] IN SERUM OR PLASMA 234 pg/mL 213 - 816 10/05 Specimen Type: SERUM Comment: The listed sex of this patient may not be a typical indication for this test. Therefore, reference ranges or interpretive criteria listed may not be valid. Clinical correlation suggested. Ordering Provider: SANJEEV ROSS Report Released Date/Time: Sep 09, 2023 11:53 AM Reporting Lab: [address] [address] Performing Lab: [address] [address] [facility] VITAMIN D, 25-HYDROXY 25-HYDROXYV ITAMIN D3 [MASS/VOLUM E] IN SERUM OR PLASMA 52.8 ng/mL 30 - 96 10/05 Specimen Type: SERUM Comment: The listed sex of this patient may not be a typical indication for this test. Therefore, reference ranges or interpretive criteria listed may not be valid. Clinical correlation suggested. Ordering Provider: SANJEEV ROSS Report Released Date/Time: Sep 09, 2023 11:53 AM Reporting Lab: [facility] [address] [facility] [address] Performing Lab: [address] [phone] [place] [address] TSH W/ REFLEX FT4 (STL) THYROTROPIN [UNITS/VOLU ME] IN SERUM OR PLASMA 3.194 u[IU]/ mL 0.47 - 5 10/05 Specimen Type: PLASMA No comment entered. Ordering Provider: SANJEEV ROSS Report Released Date/Time: Sep 09, 2023 11:53 AM Reporting Lab: [address] [address] Performing Lab: [address] [phone] [place] [address] PROST. SPECIFIC AG.(PB-STL ) PROSTATE SPECIFIC AG [MASS/VOLUM E] IN SERUM OR PLASMA 1.228 ng/mL 0 - 4 10/05 Specimen Type: SERUM Comment: The listed sex of this patient may not be a typical indication for this test. Therefore, reference ranges or interpretive criteria listed may not be valid. Clinical correlation suggested. Ordering Provider: SANJEEV ROSS Report Released Date/Time: Sep 09, 2023 11:53 AM Reporting Lab: [address] [address] Performing Lab: [address] [phone] [place] [address] HGA1C HEMOGLOBIN A1C/HEMOGLO BIN.TOTAL IN BLOOD 6.3 4.0 - 6.0 10/05 H Specimen Type: BLOOD No comment entered. Ordering Provider: SANJEEV ROSS Report Released Date/Time: Sep 09, 2023 11:53 AM Reporting Lab: [address] [address] Performing Lab: [address] [phone] [place] [address] COMPREHENS WATSON METABOLIC PANEL CREATININE [MASS/VOLUM E] IN SERUM OR PLASMA 0.95 mg/dL 0.7 - 1.3 10/05 Specimen Type: PLASMA Comment: No hemolysis noted. Ordering Provider: SANJEEV ROSS Report Released Date/Time: Sep 09, 2023 11:53 AM Reporting Lab: [facility] [address] [place] [phone] Performing Lab: [address] [address] [facility] COMPREHENS WATSON METABOLIC PANEL UREA NITROGEN [MASS/VOLUM E] IN SERUM OR PLASMA 12.5 mg/dL 9.0 - 25.0 10/05 Specimen Type: PLASMA Comment: No hemolysis noted. Ordering Provider: SANJEEV ROSS Report Released Date/Time: Sep 09, 2023 11:53 AM Reporting Lab: [address] [address] Performing Lab: [address] [address] [facility] COMPREHENS WATSON METABOLIC PANEL GLUCOSE [MASS/VOLUM E] IN SERUM OR PLASMA 117 mg/dL 72 - 99 10/05 H Specimen Type: PLASMA Comment: No hemolysis noted. Ordering Provider: SANJEEV ROSS Report Released Date/Time: Sep 09, 2023 11:53 AM Reporting Lab: [address] [address] Performing Lab: [address] [address] [facility] COMPREHENS WATSON METABOLIC PANEL SODIUM [MOLES/VOLU ME] IN SERUM OR PLASMA 135 meq/L 136 - 145 10/05 L Specimen Type: PLASMA Comment: No hemolysis noted. Ordering Provider: SANJEEV ROSS Report Released Date/Time: Sep 09, 2023 11:53 AM Reporting Lab: [address] [address] Performing Lab: [address] [address] [facility] COMPREHENS WATSON METABOLIC PANEL POTASSIUM [MOLES/VOLU ME] IN SERUM OR PLASMA 4.3 meq/L 3.5 - 5 10/05 Specimen Type: PLASMA Comment: No hemolysis noted. Ordering Provider: SANJEEV ROSS Report Released Date/Time: Sep 09, 2023 11:53 AM Reporting Lab: [facility] [address] [place] [phone] Performing Lab: [facility] [address] [facility] [address] [facility] COMPREHENS WATSON METABOLIC PANEL CHLORIDE [MOLES/VOLU ME] IN SERUM OR PLASMA 103 meq/L 98 - 107 10/05 Specimen Type: PLASMA Comment: No hemolysis noted. Ordering Provider: SANJEEV ROSS Report Released Date/Time: Sep 09, 2023 11:53 AM Reporting Lab: [address] [address] Performing Lab: [facility] [address] [place] [phone] [facility] COMPREHENS WATSON METABOLIC PANEL CARBON DIOXIDE, TOTAL [MOLES/VOLU ME] IN SERUM OR PLASMA 23 meq/L 22 - 31 10/05 Specimen Type: PLASMA Comment: No hemolysis noted. Ordering Provider: SANJEEV ROSS Report Released Date/Time: Sep 09, 2023 11:53 AM Reporting Lab: [facility] [address] [place] [phone] Performing Lab: [facility] [address] [facility] [address] [facility] COMPREHENS WATSON METABOLIC PANEL CALCIUM [MASS/VOLUM E] IN SERUM OR PLASMA 9.9 mg/dL 8.4 - 10.4 10/05 Specimen Type: PLASMA Comment: No hemolysis noted. Ordering Provider: SANJEEV ROSS Report Released Date/Time: Sep 09, 2023 11:53 AM Reporting Lab: [facility] [address] [facility] [address] Performing Lab: [facility] [address] [facility] COMPREHENS WATSON METABOLIC PANEL PROTEIN [MASS/VOLUM E] IN SERUM OR PLASMA 7.1 g/dL 6 - 8.6 10/05 Specimen Type: PLASMA Comment: No hemolysis noted. Ordering Provider: SANJEEV ROSS Report Released Date/Time: Sep 09, 2023 11:53 AM Reporting Lab: [address] [address] Performing Lab: [address] [phone] [place] [address] COMPREHENS WATSON METABOLIC PANEL ALBUMIN [MASS/VOLUM E] IN SERUM OR PLASMA 4.4 g/dL 3.4 - 5 10/05 Specimen Type: PLASMA Comment: No hemolysis noted. Ordering Provider: SANJEEV ROSS Report Released Date/Time: Sep 09, 2023 11:53 AM Reporting Lab: [address] [address] Performing Lab: [address] [phone] [place] [address] COMPREHENS WATSON METABOLIC PANEL BILIRUBIN.T OTAL [MASS/VOLUM E] IN SERUM OR PLASMA 1.0 mg/dL 0.2 - 1.2 10/05 Specimen Type: PLASMA Comment: No hemolysis noted. Ordering Provider: SANJEEV ROSS Report Released Date/Time: Sep 09, 2023 11:53 AM Reporting Lab: [address] [address] Performing Lab: [address] [phone] [place] [address] COMPREHENS WATSON METABOLIC PANEL ALKALINE PHOSPHATASE [ENZYMATIC ACTIVITY/VO LUME] IN SERUM OR PLASMA 59 U/L 40 - 150 10/05 Specimen Type: PLASMA Comment: No hemolysis noted. Ordering Provider: SANJEEV ROSS Report Released Date/Time: Sep 09, 2023 11:53 AM Reporting Lab: [facility] [address] [facility] [address] Performing Lab: [facility] [address] [facility] [address] [facility] COMPREHENS WATSON METABOLIC PANEL ASPARTATE AMINOTRANSF ERASE [ENZYMATIC ACTIVITY/VO LUME] IN SERUM OR PLASMA 12 U/L 5 - 34 10/05 Specimen Type: PLASMA Comment: No hemolysis noted. Ordering Provider: SANJEEV ROSS Report Released Date/Time: Sep 09, 2023 11:53 AM Reporting Lab: [facility] [address] [facility] [address] Performing Lab: [address] [phone] [place] [address] COMPREHENS WATSON METABOLIC PANEL ALANINE AMINOTRANSF ERASE [ENZYMATIC ACTIVITY/VO LUME] IN SERUM OR PLASMA 11 U/L 8 - 40 10/05 Specimen Type: PLASMA Comment: No hemolysis noted. Ordering Provider: SANJEEV ROSS Report Released Date/Time: Sep 09, 2023 11:53 AM Reporting Lab: [address] [phone] Performing Lab: [place] [address] [facility] [phone] [place] [address] COMPREHENS [place]AT[place] METABOLIC PANEL GLOMERULAR FILTRATION RATE/1.73 SQ M.PREDICTED [VOLUME RATE/AREA] IN SERUM, PLASMA OR BLOOD BY CREATININE- BASED FORMULA (CKD-EPI 2020) 83.5 60 10/05 Specimen Type: PLASMA Comment: No hemolysis noted. Ordering Provider: SANJEEV ROSS Report Released Date/Time: Sep 09, 2023 11:53 AM Reporting Lab: [facility] [address] [place] [phone] Performing Lab: [address] [phone] [facility] CBC LEUKOCYTES [#/VOLUME] IN BLOOD BY AUTOMATED COUNT 8.9 10*3/u L 3.6 - 11.2 10/05 Specimen Type: BLOOD No comment entered. Ordering Provider: SANJEEV ROSS Report Released Date/Time: Sep 09, 2023 11:53 AM Reporting Lab: [facility] [address] [place] [phone] Performing Lab: [facility] [address] [place] [phone] [facility] CBC ERYTHROCYTE S [#/VOLUME] IN BLOOD BY AUTOMATED COUNT 4.74 10*6/u L 4.10 - 5.70 10/05 Specimen Type: BLOOD No comment entered. Ordering Provider: SANJEEV ROSS Report Released Date/Time: Sep 09, 2023 11:53 AM Reporting Lab: [address] [phone] Performing Lab: [phone] [place] [address] CBC HEMOGLOBIN [MASS/VOLUM E] IN BLOOD 14.0 g/dL 13.1 - 16.8 10/05 Specimen Type: BLOOD No comment entered. Ordering Provider: SANJEEV ROSS Report Released Date/Time: Sep 09, 2023 11:53 AM Reporting Lab: [facility] [address] [place] [phone] Performing Lab: [address] [phone] [place] [address] CBC HEMATOCRIT [VOLUME FRACTION] OF BLOOD 41.8 38.2 - 48.4 10/05 Specimen Type: BLOOD No comment entered. Ordering Provider: SANJEEV ROSS Report Released Date/Time: Sep 09, 2023 11:53 AM Reporting Lab: [address] [phone] Performing Lab: [address] [phone] [facility] CBC MCV [ENTITIC VOLUME] BY AUTOMATED COUNT 88.2 fL 80.0 - 100.0 10/05 Specimen Type: BLOOD No comment entered. Ordering Provider: SANJEEV ROSS Report Released Date/Time: Sep 09, 2023 11:53 AM Reporting Lab: [facility] [address] [place] [phone] Performing Lab: [facility] [address] [place] [phone] [facility] CBC MCH [ENTITIC MASS] BY AUTOMATED COUNT 29.5 pg 27.0 - 34.0 10/05 Specimen Type: BLOOD No comment entered. Ordering Provider: SANJEEV ROSS Report Released Date/Time: Sep 09, 2023 11:53 AM Reporting Lab: [facility] [address] [place] [phone] Performing Lab: [phone] CBC MCHC [MASS/VOLUM E] BY AUTOMATED COUNT 33.5 g/dL 33.0 - 36.0 10/05 Specimen Type: BLOOD No comment entered. Ordering Provider: SANJEEV ROSS Report Released Date/Time: Sep 09, 2023 11:53 AM Reporting Lab: [facility] [address] [place] [phone] Performing Lab: [facility] [address] [place] [address] [phone] [place] [address] CBC PLATELETS [#/VOLUME] IN BLOOD BY AUTOMATED COUNT 244 10*3/u L 150 - 400 10/05 Specimen Type: BLOOD No comment entered. Ordering Provider: SANJEEV ROSS Report Released Date/Time: Sep 09, 2023 11:53 AM Reporting Lab: [facility] [address] [place] [phone] Performing Lab: [facility] [address] [place] [address] [phone] [place] [address] CBC PLATELET MEAN VOLUME [ENTITIC VOLUME] IN BLOOD BY AUTOMATED COUNT 9.3 fL 7.5 - 11.2 10/05 Specimen Type: BLOOD No comment entered. Ordering Provider: SANJEEV ROSS Report Released Date/Time: Sep 09, 2023 11:53 AM Reporting Lab: [facility] [address] [facility] [address] Performing Lab: [facility] [address] [facility] [address] [facility] CBC ERYTHROCYTE DISTRIBUTIO N WIDTH [RATIO] BY AUTOMATED COUNT 13.0 11.8 - 15.1 10/05 Specimen Type: BLOOD No comment entered. Ordering Provider: SANJEEV ROSS Report Released Date/Time: Sep 09, 2023 11:53 AM Reporting Lab: [facility] [address] [place] [phone] Performing Lab: [facility] [address] [place] [phone] [facility] CBC LYMPHOCYTES /100 LEUKOCYTES IN BLOOD BY AUTOMATED COUNT 25 10/05 Specimen Type: BLOOD No comment entered. Ordering Provider: SANJEEV ROSS Report Released Date/Time: Sep 09, 2023 11:53 AM Reporting Lab: [facility] [address] [facility] [phone] Performing Lab: [facility] [address] [place] [phone] [facility] CBC MONOCYTES/1 00 LEUKOCYTES IN BLOOD BY AUTOMATED COUNT 8 10/05 Specimen Type: BLOOD No comment entered. Ordering Provider: SANJEEV ROSS Report Released Date/Time: Sep 09, 2023 11:53 AM Reporting Lab: [facility] [address] [facility] [phone] Performing Lab: [facility] [address] [facility] [address] [facility] CBC NEUTROPHILS /100 LEUKOCYTES IN BLOOD BY AUTOMATED COUNT 64 10/05 Specimen Type: BLOOD No comment entered. Ordering Provider: SANJEEV ROSS Report Released Date/Time: Sep 09, 2023 11:53 AM Reporting Lab: [facility] [address] [facility] [address] Performing Lab: [facility] [address] [facility] [address] [facility] CBC EOSINOPHILS /100 LEUKOCYTES IN BLOOD BY AUTOMATED COUNT 2 10/05 Specimen Type: BLOOD No comment entered. Ordering Provider: SANJEEV ROSS Report Released Date/Time: Sep 09, 2023 11:53 AM Reporting Lab: [facility] [address] [place] [phone] Performing Lab: [address] [phone] [facility] CBC BASOPHILS/1 00 LEUKOCYTES IN BLOOD BY AUTOMATED COUNT 1 10/05 Specimen Type: BLOOD No comment entered. Ordering Provider: SANJEEV ROSS Report Released Date/Time: Sep 09, 2023 11:53 AM Reporting Lab: [address] [phone] Performing Lab: [address] [phone] [facility] CBC LYMPHOCYTES [#/VOLUME] IN BLOOD BY AUTOMATED COUNT 2.24 10*3/u L 0.77 - 4.50 10/05 Specimen Type: BLOOD No comment entered. Ordering Provider: SANJEEV ROSS Report Released Date/Time: Sep 09, 2023 11:53 AM Reporting Lab: [address] [address] Performing Lab: [facility] [address] [place] [phone] [facility] CBC MONOCYTES [#/VOLUME] IN BLOOD BY AUTOMATED COUNT 0.73 10*3/u L 0.19 - 0.80 10/05 Specimen Type: BLOOD No comment entered. Ordering Provider: SANJEEV ROSS Report Released Date/Time: Sep 09, 2023 11:53 AM Reporting Lab: [facility] [address] [place] [phone] Performing Lab: [facility] [place] [place] [phone] CBC NEUTROPHILS [#/VOLUME] IN BLOOD BY AUTOMATED COUNT 5.68 10*3/u L 2.10 - 8.00 10/05 Specimen Type: BLOOD No comment entered. Ordering Provider: SANJEEV ROSS Report Released Date/Time: Sep 09, 2023 11:53 AM Reporting Lab: [place] [address] Performing Lab: [place] [phone] CBC EOSINOPHILS [#/VOLUME] IN BLOOD BY AUTOMATED COUNT 0.16 10*3/u L 0.00 - 0.60 10/05 Specimen Type: BLOOD No comment entered. Ordering Provider: SANJEEV ROSS Report Released Date/Time: Sep 09, 2023 11:53 AM Reporting Lab: [place] [address] Performing Lab: [place] [phone] CBC BASOPHILS [#/VOLUME] IN BLOOD BY AUTOMATED COUNT 0.05 10*3/u L 0.00 - 0.20 10/05 Specimen Type: BLOOD No comment entered. Ordering Provider: SANJEEV ROSS Report Released Date/Time: Sep 09, 2023 11:53 AM Reporting Lab: [place] [address] Performing Lab: [address] GLUCOSE,BL OOD-poct (STL) GLUCOSE [MASS/VOLUM E] IN BLOOD BY AUTOMATED TEST STRIP 105 mg/dL 72 - 99 10/09 H Specimen Type: BLOOD Comment: Test Performed by: [id number] Meter #: [id number] Ordering Provider: BILL GILMORE Report Released Date/Time: Oct 09, 2022 01:46 PM Reporting Lab: [facility] [address] [facility] [address] Performing Lab: [facility] [address] [facility] [address] [facility] Vital Signs Combined list of inpatient and outpatient Vital Signs from Department of [facility] and [facility], ranging from 12 months to all on record, depending upon the facility. Vital Sign Value Date Comments Source SYSTOLIC BLOOD PRESSURE 155 09/09/2023 11:16:05 [facility] DIASTOLIC BLOOD PRESSURE 76 09/09/2023 11:16:05 [facility] PULSE OXIMETRY 96 09/09/2023 11:16:05 [facility] WEIGHT 214 09/09/2023 11:16:05 [facility] BMI 31kg/m2 09/09/2023 11:16:05 [facility] PAIN 0 09/09/2023 11:16:05 [facility] HEIGHT 70 09/09/2023 11:16:05 [facility] TEMPERATURE 97.8 09/09/2023 11:16:05 [facility] PULSE 72 09/09/2023 11:16:05 [facility] RESPIRATION 20 09/09/2023 11:16:05 [facility] Encounters Combined list of: 1) Encounters from Department of [facility] facilities going back up to thelast 18 months. 2) Encounters from the Department of [facility] facilities going back up to 280 months. 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, left eye<br/ > Norma GARCIA S 09/30 [facility] Outpatient Encounter [id number] HELDER CLARK S 10/07 [facility] OFFICE O/P EST MOD 30-39 MIN [id number] Diagnos is: ICD-10- CM I25.10 Athscl heart disease of [place] coronar y artery w/o ang pctrs<b r/> DYLLAN GILMOREA A 10/09 [facility] Outpatient Encounter [id number] 10/31 [facility] Outpatient Encounter [id number] 11/12 [facility] Outpatient Encounter [id number] 12/08 [facility] Outpatient Encounter [id number] 12/11 [facility] QNHP OL DIG ASSMT&MGMT 5-10 [id number] Diagnos is: ICD-10- CM Z51.81 Encount er for therape utic drug level monitor ing<br/ > JOSE RAUL MALIK S 12/25 [facility] Outpatient Encounter [id number] 12/26 [facility] Outpatient Encounter [id number] 01/06 [facility] HC PRO PHONE CALL 5-10 MIN [id number] Diagnos is: ICD-10- CM Z51.81 Encount er for therape utic drug level monitor ing<br/ > JOSE RAUL MALIK S 01/07 [facility] Outpatient Encounter [id number] MITCHEL WESLEY A 07/28 [facility] Outpatient Encounter [id number] ANILA OKEEFE 08/06 [facility] OFFICE O/P EST MOD 30 MIN [id number] Diagnos is: ICD-10- CM 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
LUPIS MAGALLON 08/31 [facility] HEARING AID REPAIR/MOD IFYING [id number] Diagnos is: ICD-10- CM H90.3 Sensori neural hearing loss, bilater al
KALI ENG 09/07 [facility] OFFICE O/P EST MOD 30 MIN [id number] Diagnos is: ICD-10- CM Z00.00 Encntr for general adult medical exam w/o abnorma l finding s
DORCAS ROSS SA S 09/08 [facility] HEARING AID FITTING/CH ECKING [id number] Diagnos is: ICD-10- CM H90.3 Sensori neural hearing loss, bilater al
FAITH FISHER 10/06 [facility] Outpatient Encounter [id number] 10/26 [facility] Outpatient Encounter [id number] 02/22 [facility] Social History Combined list of available smoking, tobacco, and other social history from [facility] of [facility] and [facility] facilities. Social History Type Response Date Comment Sour e Tobacco smoking status NHIS VA-TOBACCO FORMER USER 10/07/2022 [facility] History of tobacco use MO-TOBACCO QUIT 15 YRS OR MORE 10/07/2022 [facility] History of tobacco use VA-TOBACCO FORMER USER 09/20/2020 [facility] History of tobacco use VA-TOBACCO FORMER USER 07/15/2018 [facility] History of tobacco use VA-TOBACCO FORMER USER 11/20/2017 [facility] History of tobacco use QUIT TOBACCO >7 YEARS AGO 10/06/2017 [facility] History of tobacco use QUIT TOBACCO >7 YEARS AGO 12/26/2016 [facility] Plan of Care List of future care activities from Department [facility] facilities. Additional future care activities may be listed in the Assessment and Plan section. Date/Time Care Activity Care Activity Detail Facili ty 06/09/2024 AMBULATORY - MEDICINE AMBULATORY - MEDICI NE [facility]
== END 2024-02-19 10:54 | disposition home or self-care (01) ==
LOC: ANHIMG 10:54
PROVIDERS: PCP Family Medicine; Visit Provider Internal Medicine Cardiovascular Disease
DX: I71.21 Aneurysm of the ascending aorta, without rupture (principal); I71.43 Infrarenal abdominal aortic aneurysm, without rupture
CPT/HCPCS: 71250

== ENCOUNTER 2024-04-13 06:59 | Outpatient (CLI) | payer MEDICARE, SELFPAY ==
--- OUTSIDE RECORDS SUMMARY | 2024-04-13 07:04 | XMS_ITS | Referral Summary ---
Author Organization [facility] [address] Address [address] [place] [address] Care Team Providers Care Research Chief Engineer Name Role Phone Bernardo Rose MD Primary Care Provider Encounters Date Type Department Care Team Description 04/07/2024 3:12 PM PET ADOPTION COUNSELOR - 04/07/2024 11:59 PM PET ADOPTION COUNSELOR Hospital Encounter [address] [address] Infrarenal abdominal aortic aneurysm (AAA) without rupture (HCC) Discharge Disposition: Discharge to home or self care 03/23/2024 Orders Only [facility] at [address] [place] [phone] Baltazar Parker MD Infrarenal abdominal aortic aneurysm (AAA) without rupture (HCC) (Primary Dx) 03/23/2024 11:00 AM PET ADOPTION COUNSELOR Office Visit [facility] at [address] [place] [phone] Baltazar Parker MD Infrarenal abdominal aortic aneurysm (AAA) without rupture (HCC) (Primary Dx); Hyperlipidemia LDL goal <70; Hypertension associated with diabetes (HCC) 03/15/2024 8:00 AM PET ADOPTION COUNSELOR Ancillary Procedure [facility] at [address] [place] [address] Aneurysm of ascending aorta without rupture (HCC) 03/04/2024 Telephone [facility] [address] [place] [address] Andres Estrella MD 02/19/2024 11:10 AM PET ADOPTION COUNSELOR - 02/19/2024 11:59 PM PET ADOPTION COUNSELOR Hospital Encounter [facility] [employer] [address] [place] [address] Discharge Disposition: Discharge to home or self care 02/19/2024 Orders Only [facility] Information Management [address] [place] [id number] Andres Estrella MD 02/11/2024 11:30 AM PET ADOPTION COUNSELOR Office Visit [facility] [address] [place] [address] Andres Estrella MD Aneurysm of ascending aorta without rupture (HCC) (Primary Dx); Coronary artery disease of [place] artery of [place] heart with stable angina pectoris (HCC); Cardiomyopathy, ischemic; Chronic systolic CHF (congestive heart failure) (CMS/HCC) (HCC); Hyperlipidemia associated with type 2 diabetes mellitus (HCC); Hypertension associated with diabetes (HCC); Status post mitral valve repair 02/01/2024 10:01 AM PET ADOPTION COUNSELOR - 02/01/2024 11:59 PM PET ADOPTION COUNSELOR Hospital Encounter [facility] [address] [place] [address] Discharge Disposition: Discharge to home or self care 02/01/2024 10:00 AM PET ADOPTION COUNSELOR - 02/01/2024 11:59 PM PET ADOPTION COUNSELOR Hospital Encounter [facility] [address] [place] [address] Abnormal echocardiogram Discharge Disposition: Discharge to home or self care 01/15/2024 Telephone [facility] [address] [place] [address] Andres Estrella MD from Last 3 Months Allergies No known active allergies Medications budesonide-form oterol (SYMBICORT) 160-4.5 mcg/actuation inhaler Inhale 2 puffs 2 (two) times a day Rinse mouth with water after use. Do not swallow. Active fluticasone (FLONASE) 50 mcg/actuation nasal spray Administer 1 spray into each nostril daily Active levothyroxine (SYNTHROID) 137 mcg tablet Take 111 mcg by mouth rehabilitation construction specialist before breakfast Active montelukast (SINGULAIR) 10 mg tablet Take 1 tablet (10 mg total) by mouth nightly Active rivaroxaban (XARELTO) 20 mg tablet Take 1 tablet (20 mg total) by mouth daily Active sertraline (ZOLOFT) 100 mg tablet Take 1 tablet (100 mg total) by mouth daily Active tiotropium bromide 2.5 mcg/actuation mist Inhale 2 puffs daily Active aspirin 81 mg tablet Take 1 tablet (81 mg total) by mouth daily Active albuterol (PROVENTIL,VENT SUSHIL) 2.5 mg /3 mL (0.083 %) nebulizer solution Take 3 mL (2.5 mg total) by nebulization every 6 (six) hours as needed for wheezing Active ascorbic acid (VITAMIN C) 1,000 mg tablet Take 2 tablets (2,000 mg total) by mouth nightly Active metoprolol (LOPRESSOR) 25 mg tabletIndicatio ns:Coronary artery disease of [place] artery of [place] heart with stable angina pectoris (HCC) Take 1 tablet (25 mg total) by mouth 2 (two) times a day 60 tablet 11 9 Active amLODIPine (NORVASC) 5 mg tablet Take 1 tablet (5 mg total) by mouth daily 9 Active atorvastatin (LIPITOR) 40 mg tabletIndicatio ns:Coronary artery disease of [place] artery of [place] heart with stable angina pectoris (HCC),Hyperlipi demia associated with type 2 diabetes mellitus (HCC) Take 1 tablet (40 mg total) by mouth daily 90 tablet 3 0 Active furosemide (LASIX) 20 mg tabletIndicatio ns:Hypertension associated with diabetes (HCC) Take 1 tablet (20 mg total) by mouth daily 90 tablet 2 1 Active fluticasone propion-salmete roL (ADVAIR DISKUS) 250-50 mcg/dose diskus inhaler Inhale 1 puff 2 (two) times a day Rinse mouth with water after use. Do not swallow. Active sacubitriL-vals edna (ENTRESTO) 49-51 mg tabletIndicatio ns:chronic heart failure Take 1 tablet by mouth 2 (two) times a day 2 Active Active Problems Problem Noted Date Diagnosed Date Cardiomyopathy, ischemic 11/13/2021 Chronic systolic CHF (congestive heart failure) (CMS/HCC) 11/13/2021 Ascending aortic aneurysm 01/10/2020 Assessment & Plan (03/29/2024 9:34 AM PET ADOPTION COUNSELOR): 7 cm AAA on aortoiliac duplex. CTA abdomen pelvis ordered further evaluation. Continue ASA statin therapy. Status post mitral valve repair 06/24/2018 Hx of CABG 06/24/2018 S/P left atrial appendage ligation 06/24/2018 Hyperglycemia 05/24/2018 Mitral valve insufficiency 04/13/2018 Overview (04/13/2018): Added automatically from request for surgery [id number] Persistent atrial fibrillation 01/26/2018 CAD (coronary artery disease) 01/26/2018 Obstructive sleep apnea 01/26/2018 Mitral valve prolapse 01/26/2018 Non-rheumatic mitral regurgitation 01/26/2018 Hypertension associated with diabetes 01/26/2018 Assessment & Plan (03/29/2024 9:34 AM PET ADOPTION COUNSELOR): Stable continue amlodipine Hyperlipidemia associated with type 2 diabetes olivia hector 01/26/2018 Hyperlipidemia LDL goal <70 01/26/2018 Assessment & Plan (03/29/2024 9:34 AM PET ADOPTION COUNSELOR): Stable continue Lipitor Pulmonary emphysema 01/26/2018 Social History Tobacco Use Types Packs/Day Years Used Date Smoking Tobacco: Former Cigarettes Q uit: 01/27/2004 Smokeless Tobacco: Never Tobacco Cessation:Counseling Given: Not Answered Alcohol Use Standard Drinks/Week Comments No 0 (1 standard drink = 0.6 oz pur e alcohol) Sex and Gender Information Value Date Recorded Sex Assigned at Not on file Legal Sex Male 2:02 PM CDT Gender Identity Not on file Sexual Orientation Not on file Last Filed Vital Signs Vital Sign Reading Time Taken Comments Blood Pressure 134/85 03/23/2024 10:51 AM PET ADOPTION COUNSELOR Pulse 73 03/23/2024 10:51 AM PET ADOPTION COUNSELOR Temperature 36.8 C (98.3 F) 02/03/2021 1:55 PM PET ADOPTION COUNSELOR Respiratory Rate 16 01/05/2024 10:18 AM PET ADOPTION COUNSELOR Oxygen Saturation 94% 03/23/2024 10:51 AM PET ADOPTION COUNSELOR Inhaled Oxygen Concentration - - Weight 102.1 kg (225 lb) 03/23/2024 10:51 AM PET ADOPTION COUNSELOR Height 177.8 cm (5' 10 ) 03/23/2024 10:51 AM PET ADOPTION COUNSELOR Body Mass Index 32.28 03/23/2024 10:51 AM PET ADOPTION COUNSELOR Plan of Treatment Not on file Medical Devices Implanted Type Area Manager Battery Device Identifier Shelf Expiration Date Model / Serial / Lot Atricure Atriclip Implanted:Qty: 1 on 05/24/2018 by Chun Santiago MD at [facility] N/A: Heart Atricure 02/23/2021 [id number] / / [id number] Description:Left atrial appe ndage [employer] [id number] Ashley-Beatriz thy-Harvey Imr Etlogix 32mm 3d Reduced Curvature - [id number] - [id number] Implanted:Qty: 1 on 05/24/2018 by Chun Santiago MD at [facility] N/A: Heart [employer] [id number] 06/05/2020 [id number] / [id number] / Procedures Procedure Name Priority Date/Time Associated Diagnosis Comments CTA ABDOMEN PELVIS W WO CONTRAST Schedule Routine, Read Routine (OP Routine) 04/07/2024 3:41 PM PET ADOPTION COUNSELOR Infrarenal abdominal aortic aneurysm (AAA) without rupture (HCC) POCT CREATININE FOR CONTRAST EVALUATION Routine 04/07/2024 3:33 PM PET ADOPTION COUNSELOR US DUPLEX SCAN AORTA, IVC ILIAC COMPLETE Schedule Routine, Read Routine (OP Routine) 03/15/2024 8:33 AM PET ADOPTION COUNSELOR Aneurysm of ascending aorta without rupture (HCC) CT BODY OUTSIDE REFERENCE Routine 02/19/2024 11:10 AM PET ADOPTION COUNSELOR SCAN - RADIOLOGY/IMAGING 02/19/2024 NM MYOCARDIAL AMYLOIDOSIS IMAGING SPECT/CT Schedule Routine, Read Routine (OP Routine) 02/01/2024 2:10 PM PET ADOPTION COUNSELOR Abnormal echocardiogram POCT LIPID PANEL Routine 06/26/2023 11:1 3 AM CDT Lipid screening EGFR Routine 05/31/2018 7:24 AM CDT from Last 3 Months or Most Recently Relevant to Health Maintenance Results * CTA Abdomen Pelvis (04/07/2024 3:41 PM PET ADOPTION COUNSELOR) Anatomical Region Laterality Modality Body N/A Computed Tomogra phy 04/07/2024 3:52 PM PET ADOPTION COUNSELOR Narrative 04/07/2024 4:16 PM PET ADOPTION COUNSELOR EXAM DESCRIPTION: CTA ABDOMEN PELVIS REASON FOR STUDY: Infrarenal AAA Infrarenal AAA, Infrarenal abdominal aortic aneurysm (AAA) without rupture, since 2018 TECHNIQUE: CTA scan of the abdomen and pelvis performed without and with intravenous and without oral contrast using helical scanning technique with dynamic intravenous contrast injection. Precontrast, arterial, and portal venous phase images of the abdomen and pelvis were acquired. Images reviewed with lung, soft tissue and bone windows. Reconstructed coronal and sagittal MPR images reviewed. All images stored on PACS. 3D MIP images rendered on scanning unit and reviewed at time of interpretation. Automated exposure control was used as a dose optimization technique for this examination. CONTRAST TYPE/DOSE: 100mL of IOVERSOL 350 MG IODINE/ML INTRAVENOUS SYRINGE injected via intravenous COMPARISON: None. FINDINGS: VASCULATURE: On the noncontrast sequence, there are scattered calcified atherosclerotic changes of the aorta the vasculature. On the post-contrast sequence, there is no definite evidence of acute aortic injury or dissection. There is aneurysmal dilatation of the distal abdominal aorta to the level of the aortic bifurcation measuring 6.1 cm in the AP dimension by 7.0 cm in the transverse dimension by 7.8 cm in length (axial image 120, sagittal image 70, coronal image 52). There is a tortuous abdominal aorta with multiple areas of ectasia/aneurysmal dilatation. For example, there is aneurysmal dilatation of the proximal abdominal aorta at the level of the celiac artery/superior mesenteric artery measuring up to 3.4 cm (sagittal image 73). There is ectasia of the infrarenal abdominal aorta measuring up to 3.0 cm just inferior to the origin of the bilateral renal arteries (sagittal image 70). There is aneurysmal dilatation of the mid abdominal aorta just proximal to the distal abdominal aortic aneurysm measuring up to 3.6 cm (sagittal image 70). CELIAC TRUNK: There are scattered atherosclerotic changes involving the celiac artery, which is most significant at its origin with less than 50% hemodynamically significant stenosis. SUPERIOR MESENTERIC ARTERY: There are scattered atherosclerotic changes of the superior mesenteric artery, which is most significant at its origin with 50% hemodynamically significant stenosis. RIGHT RENAL ARTERY: There are 2 right renal arteries noted. There are atherosclerotic changes noted at the origin of the dominant right renal artery without evidence of hemodynamically significant stenosis, occlusion, or aneurysmal dilatation. LEFT RENAL ARTERY: There are 2 left renal arteries noted. There are atherosclerotic changes noted involving the proximal aspect of the dominant left renal artery with less than 50% hemodynamically significant stenosis. INFERIOR MESENTERIC ARTERY: The inferior mesenteric artery arises off of the abdominal aortic aneurysm and appears grossly unremarkable without definite evidence of occlusion or aneurysmal dilatation. ILIAC ARTERIES: There is ectasia of the left common iliac artery measuring up to 1.6 cm. There are scattered atherosclerotic changes of the bilateral common iliac, bilateral internal iliac, bilateral external iliac, and bilateral common femoral arteries with less than 50% hemodynamically significant stenosis. LOWER CHEST: The heart size is upper limits of normal. There is no definite evidence of pericardial effusion. There are mild emphysematous changes of the visualized lung bases with bibasilar subsegmental atelectasis and scarring. There is a small hiatal hernia. LIVER: There is a nodular contour of the liver, which raises the concern for chronic hepatocellular disease. There is no definite evidence of focal hepatic lesion. The portal veins are grossly patent. GALLBLADDER: There is cholelithiasis. BILE DUCTS: No intrahepatic or extrahepatic ductal dilatation. SPLEEN: The spleen is grossly normal in size and unremarkable. PANCREAS: The pancreas appears grossly unremarkable without definite of pancreatic ductal dilatation, peripancreatic inflammatory changes, or peripancreatic fluid collection. ADRENALS: There is nonspecific nodular thickening of the bilateral adrenal glands. KIDNEYS/URINARY TRACT: On the noncontrast sequence, there is no definite evidence of nephrolithiasis. There are vascular calcifications noted in the bilateral kidneys. The bilateral kidneys enhance symmetrically. There is no definite evidence of focal renal lesion. There is no definite evidence of hydronephrosis or hydroureter. There is mild circumferential mucosal thickening of the urinary bladder. The prostate gland measures 5.4 cm. GI: There is no definite evidence of a bowel obstruction. The appendix is visualized without definite evidence of pericecal or periappendiceal inflammatory changes to suggest appendicitis. There is colonic diverticulosis with subtle mild mucosal thickening of the distal descending colon/proximal sigmoid colon with mild pericolonic fat stranding, which is concerning for mild acute uncomplicated diverticulitis. There is no definite evidence of free air in the abdomen and pelvis to suggest perforation. There is no definite evidence of free fluid in the abdomen and pelvis. There is no definite pericolonic fluid collection to suggest peridiverticular abscess. There is no definite evidence of lymphadenopathy in the abdomen and pelvis. MUSCULOSKELETAL: There is mild osteopenia. There is a mild levoscoliotic curvature of the spine with degenerative changes. OTHER: No other abnormality. IMPRESSION: Atherosclerotic changes of the aorta with aneurysmal dilatation of the distal abdominal aorta to the level of the aortic bifurcation measuring up to 6.1 cm in the AP dimension by 7.0 cm in the transverse dimension by 7.8 cm in length. Surgical consultation and management is recommended as clinically indicated. Tortuous abdominal aorta with multiple areas of ectasia/aneurysmal dilatation as described above. No definite evidence of acute aortic injury or dissection. No definite evidence of bowel obstruction. Colonic diverticulosis with subtle mild mucosal thickening of the distal descending colon/proximal sigmoid colon with mild pericolonic fat stranding, which is concerning for mild acute uncomplicated diverticulitis. No definite evidence of perforation or peridiverticular abscess. Mild circumferential mucosal thickening of the urinary bladder, which may be related to underdistention, chronic urinary bladder outlet obstruction secondary to enlarged prostate gland, or cystitis. Clinical correlation with urinary analysis is recommended as clinically indicated. Enlarged prostate gland. Clinical correlation with physical exam findings and PSA values is recommended as clinically indicated. Nodular contour of the liver, which raises the concern for chronic hepatocellular disease. Clinical correlation with liver function tests is recommended as clinically indicated. Cholelithiasis. Mild emphysematous changes of the visualized lung bases with bibasilar subsegmental atelectasis and scarring. Recommend evaluation for annual lung cancer screening enrollment if the patient qualifies based on clinical factors and smoking history. Normal appendix. Findings were discussed with Dr. Parker by Dr. Fernandez at 16:16 hours on 04/07/2024 . THIS IS AN ELECTRONICALLY VERIFIED FINAL REPORT 04/07/2024 4:16 PM - Electronically signed by Nita Fernandez D.O. PS: ROMINA Report ID: [id number] Reading Location: [id number] Procedure Note Rebecca Ntia Sascha, DO - 04/07/2024 EXAM DESCRIPTION: CTA ABDOMEN PELVIS REASON FOR STUDY: Infrarenal AAA Infrarenal AAA, Infrarenal abdominal aortic aneurysm (AAA) withoutrupture, since 2019 TECHNIQUE: CTA scan of the abdomen and pelvis performed without and with intravenous and without oral contrast using helical scanning techniquewith dynamic intravenous contrast injection. Precontrast, arterial, and portal venous phase images of the abdomen and pelvis were acquired. Images reviewed with lung, soft tissue and bone windows. Reconstructed coronaland sagittal MPR images reviewed. All images stored on PACS. 3D MIP images rendered on scanning unit and reviewed at time of interpretation.Automated exposure control was used as a dose optimization technique for this examination. CONTRAST TYPE/DOSE: 100mL of IOVERSOL 350 MG IODINE/ML INTRAVENOUSSYRINGE injected via intravenous COMPARISON: None. FINDINGS: VASCULATURE: On the noncontrast sequence, there are scattered calcified atherosclerotic changes of the aorta the vasculature. On the post-contrast sequence, there is no definite evidence of acute aorticinjury or dissection. There is aneurysmal dilatation of the distal abdominal aorta to the levelof the aortic bifurcation measuring 6.1 cm in the AP dimension by 7.0 cm inthe transverse dimension by 7.8 cm in length (axial image 120, sagittal image70, coronal image 52). There is a tortuous abdominal aorta with multiple areas ofectasia/aneurysmal dilatation. For example, there is aneurysmal dilatation of the proximal abdominal aorta at the level of the celiac artery/superior mesentericartery measuring up to 3.4 cm (sagittal image 73). There is ectasia of the infrarenal abdominal aorta measuring up to 3.0 cm just inferior to theorigin of the bilateral renal arteries (sagittal image 70). There is aneurysmal dilatation of the mid abdominal aorta just proximal to the distalabdominal aortic aneurysm measuring up to 3.6 cm (sagittal image 70). CELIAC TRUNK: There are scattered atherosclerotic changes involving the celiac artery, which is most significant at its origin with less than 50% hemodynamically significant stenosis. SUPERIOR MESENTERIC ARTERY: There are scattered atherosclerotic changesof the superior mesenteric artery, which is most significant at its originwith 50% hemodynamically significant stenosis. RIGHT RENAL ARTERY: There are 2 right renal arteries noted. There are atherosclerotic changes noted at the origin of the dominant right renalartery without evidence of hemodynamically significant stenosis, occlusion, or aneurysmal dilatation. LEFT RENAL ARTERY: There are 2 left renal arteries noted. There are atherosclerotic changes noted involving the proximal aspect of thedominant left renal artery with less than 50% hemodynamically significant stenosis. INFERIOR MESENTERIC ARTERY: The inferior mesenteric artery arises off ofthe abdominal aortic aneurysm and appears grossly unremarkable withoutdefinite evidence of occlusion or aneurysmal dilatation. ILIAC ARTERIES: There is ectasia of the left common iliac arterymeasuring up to 1.6 cm. There are scattered atherosclerotic changes of thebilateral common iliac, bilateral internal iliac, bilateral external iliac, and bilateral common femoral arteries with less than 50% hemodynamically significant stenosis. LOWER CHEST: The heart size is upper limits of normal. There is nodefinite evidence of pericardial effusion. There are mild emphysematous changes ofthe visualized lung bases with bibasilar subsegmental atelectasis andscarring. There is a small hiatal hernia. LIVER: There is a nodular contour of the liver, which raises the concernfor chronic hepatocellular disease. There is no definite evidence of focal hepatic lesion. The portal veins are grossly patent. GALLBLADDER: There is cholelithiasis. BILE DUCTS: No intrahepatic or extrahepatic ductal dilatation. SPLEEN: The spleen is grossly normal in size and unremarkable. PANCREAS: The pancreas appears grossly unremarkable without definite of pancreatic ductal dilatation, peripancreatic inflammatory changes, or peripancreatic fluid collection. ADRENALS: There is nonspecific nodular thickening of the bilateraladrenal glands. KIDNEYS/URINARY TRACT: On the noncontrast sequence, there is no definite evidence of nephrolithiasis. There are vascular calcifications noted inthe bilateral kidneys. The bilateral kidneys enhance symmetrically. There isno definite evidence of focal renal lesion. There is no definite evidence of hydronephrosis or hydroureter. There is mild circumferential mucosal thickening of the urinary bladder. The prostate gland measures 5.4 cm. GI: There is no definite evidence of a bowel obstruction. The appendixis visualized without definite evidence of pericecal or periappendiceal inflammatory changes to suggest appendicitis. There is colonicdiverticulosis with subtle mild mucosal thickening of the distal descendingcolon/proximal sigmoid colon with mild pericolonic fat stranding, which is concerning for mild acute uncomplicated diverticulitis. There is no definite evidence of free air in the abdomen and pelvis to suggest perforation. There is no definite evidence of free fluid in the abdomen and pelvis. There is no definite pericolonic fluid collection to suggest peridiverticular abscess. There is no definite evidence of lymphadenopathy in the abdomen andpelvis. MUSCULOSKELETAL: There is mild osteopenia. There is a mildlevoscoliotic curvature of the spine with degenerative changes. OTHER: No other abnormality. IMPRESSION: Atherosclerotic changes of the aorta with aneurysmal dilatation of thedistal abdominal aorta to the level of the aortic bifurcation measuring up to 6.1cm in the AP dimension by 7.0 cm in the transverse dimension by 7.8 cm inlength. Surgical consultation and management is recommended as clinicallyindicated. Tortuous abdominal aorta with multiple areas of ectasia/aneurysmaldilatation as described above. No definite evidence of acute aortic injury or dissection. No definite evidence of bowel obstruction. Colonic diverticulosis with subtle mild mucosal thickening of the distal descending colon/proximal sigmoid colon with mild pericolonic fatstranding, which is concerning for mild acute uncomplicated diverticulitis. Nodefinite evidence of perforation or peridiverticular abscess. Mild circumferential mucosal thickening of the urinary bladder, which maybe related to underdistention, chronic urinary bladder outlet obstruction secondary to enlarged prostate gland, or cystitis. Clinical correlationwith urinary analysis is recommended as clinically indicated. Enlarged prostate gland. Clinical correlation with physical exam findingsand PSA values is recommended as clinically indicated. Nodular contour of the liver, which raises the concern for chronic hepatocellular disease. Clinical correlation with liver function tests is recommended as clinically indicated. Cholelithiasis. Mild emphysematous changes of the visualized lung bases with bibasilar subsegmental atelectasis and scarring. Recommend evaluation for annuallung cancer screening enrollment if the patient qualifies based on clinicalfactors and smoking history. Normal appendix. Findings were discussed with Dr. Parker by Dr. Fernandez at 16:16 hourson 04/07/2024 . THIS IS AN ELECTRONICALLY VERIFIED FINAL REPORT 04/07/2024 4:16 PM - Electronically signed by Nita Fernandez D.O. PS: PS Report ID: [id number] Reading Location: [id number] Baltazar Parker MD IMG CT PROCEDURES Final Result * POCT creatinine for contrast evaluation (04/07/2024 3:33 PM PET ADOPTION COUNSELOR) Creatinine POC 0.90 0.80 - 1.30 mg/dL Comment:Testing performed by : [facility], [address] [place] [address]., [id number] Blood 04/07/2024 3:33 PM PET ADOPTION COUNSELOR 04/07/2024 3:33 PM PET ADOPTION COUNSELOR Baltazar Parker MD POINT OF CARE TEST ORDERABLES Fi nal Result [facility] [place] [address] * US Duplex Scan Aorta, IVC Iliac Complete (03/15/2024 8:33 AM PET ADOPTION COUNSELOR) Pathologist [facility] LV EF % CONS SCIMAGE Anatomical Region Laterality Modality Vascular N/A Ultrasound 03/15/2024 8:07 AM PET ADOPTION COUNSELOR Narrative 03/15/2024 8:58 AM PET ADOPTION COUNSELOR Vascular & Vein Surgery [address] [place] [id number] Abdominal Aortic Duplex Ultrasound Report Patient Name: FOX BECKHAM : 1950 Study Date: 03/15/2024 8:07:20 AM Gender: M Cook Fishing Vessel: Location: [facility] Ref Provider: ANDRES ESTRELLA Quality: Adequate Order Provider: ANDRES ESTRELLA PROCEDURES: Arterial Report: Duplex ultrasound imaging of the abdominal aorta. INDICATIONS: AAA seen on prior CT and I71.21 Aneurysm of the ascending aorta, without rupture. HISTORY: Hypertension. Hyperlipidemia. Coronary artery disease S/P CABG. Congestive heart failure. Afib. Ascending AO aneurysm. Former smoker. COMPARISONS: Prior CT @ [place] 02/19/24. MEASUREMENTS: Velocities Value Diameters Value Aorta Prx PSV 56.00 cm/sec Aorta Prx AP Dim 2.70 cm Aorta Mid PSV 78.00 cm/sec Aorta Prx Trans Dim 2.81 cm Aorta Dst PSV 41.00 cm/sec Aorta Mid AP Dim 3.43 cm Rt Com Iliac Prx PSV 69.00 cm/sec Aorta Mid Trans Dim 3.31 cm Lt Com Iliac Prx PSV 143.00 cm/sec Aorta Dst AP Dim 6.71 cm Aorta Dst Trans Dim 7.04 cm Rt Com Iliac Prx AP Dim 1.60 cm Rt Com Iliac Prx Trans Dim 1.31 cm Rt Ext Iliac Dst AP Dim 0.82 cm Rt Ext Iliac Dst Trans Dim 0.81 cm Lt Com Iliac Prx AP Dim 2.78 cm Lt Com Iliac Prx Trans Dim 2.20 cm Lt Ext Iliac Dst AP Dim 1.07 cm Lt Ext Iliac Dst Trans Dim 1.18 cm - MEASUREMENTS: FINDINGS: Study Quality: Technically difficult. Abdominal Aorta: Infrarenal abdominal aortic aneurysm measurin.71 x 7.04 cm. Flow velocities and spectral waveforms are within normal limits. Right common iliac artery measures 1.60 x 1.31 cm, left common iliac artery measures roughly 2.78 x 2.20 cm (difficult to measure due to vessel diving). Right external iliac artery measures 0.82 x 0.81 cm, left external iliac artery measures 1.07 x 1.18 cm. Provider Notification: Results called to Dr. Parker at 08:30. CONCLUSIONS: 1. 6.7 x 7.04 cm infrarenal abdominal aortic aneurysm. 2. 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 Left common iliac aneurysm measuring 2.78 cm. ATTESTATION: I have reviewed and interpreted the pertinent images and measurements of this study. I attest to the conclusions in the final report that is provided above. Electronically Signed By: Baltazar Parker MD B 03/15/2024 8:57:02 AM PET ADOPTION COUNSELOR Procedure Note Baltazar Parker MD - 03/15/2024 Vascular [facility] Ve[facility] Surgery [address] [place] [id number] Abdominal Aortic Duplex Ultrasound Report Patient Name: FOX BECKHAM : 1950 Study Date: 03/15/2024 8:07:20 AM Gender: M Cook Fishing Vessel: Location: [facility] Ref Provider: ANDRES ESTRELLA Quality: Adequate Order Provider: ANDRES ESTRELLA PROCEDURES: Arterial Report: Duplex ultrasound imaging of the abdominal aorta. INDICATIONS: AAA seen on prior CT and I71.21 Aneurysm of the ascending aorta, withoutrupture. HISTORY: Hypertension. Hyperlipidemia. Coronary artery disease S/P CABG. Congestiveheart failure. Afib. Ascending AO aneurysm. Former smoker. COMPARISONS: Prior CT @ [place] 02/19/24. MEASUREMENTS: Velocities Value DiametersValue Aorta Prx PSV 56.00 cm/sec Aorta Prx AP Dim2.70 cm Aorta Mid PSV 78.00 cm/sec Aorta Prx Trans Dim2.81 cm Aorta Dst PSV 41.00 cm/sec Aorta Mid AP Dim3.43 cm Rt Com Iliac Prx PSV 69.00 cm/sec Aorta Mid Trans Dim3.31 cm Lt Com Iliac Prx PSV 143.00 cm/sec Aorta Dst AP Dim6.71 cm Aorta Dst Trans Dim 7.04 cm Rt Com Iliac Prx AP Dim 1.60 cm Rt Com Iliac Prx Trans Dim 1.31 cm Rt Ext Iliac Dst AP Dim 0.82 cm Rt Ext Iliac Dst Trans Dim 0.81 cm Lt Com Iliac Prx AP Dim 2.78 cm Lt Com Iliac Prx Trans Dim 2.20 cm Lt Ext Iliac Dst AP Dim 1.07 cm Lt Ext Iliac Dst Trans Dim 1.18 cm - MEASUREMENTS: FINDINGS: Study Quality: Technically difficult. Abdominal Aorta: Infrarenal abdominal aortic aneurysm measurin.71 x 7.04 cm. Flowvelocities and spectral waveforms are within normal limits. Right common iliac arterymeasures 1.60 x 1.31 cm, left common iliac artery measures roughly 2.78 x 2.20 cm(difficult to measure due to vessel diving). Right external iliac artery measures 0.82 x 0.81cm, left external iliac artery measures 1.07 x 1.18 cm. Provider Notification: Results called to Dr. Parker at 08:30. CONCLUSIONS: 1. 6.7 x 7.04 cm infrarenal abdominal aortic aneurysm. 2. 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 Left common iliacaneurysm measuring 2.78 cm. ATTESTATION: I have reviewed and interpreted the pertinent images and measurements ofthis study. I attest to the conclusions in the final report that is provided above. Electronically Signed By: MD TAYLOR Larkin 03/15/2024 8:57:02 AM PET ADOPTION COUNSELOR us Andres Estrella MD [facility] [place] PROCEDURES Final R esult * CT Body Outside Reference (02/19/2024 11:10 AM PET ADOPTION COUNSELOR) Narrative [facility] - 03/24/2024 10:51 AM PET ADOPTION COUNSELOR This order has been auto-finalized and does not contain a result. us Provider Transcribed Order IMG CT PROCEDURES Fin al Result [id number] * SCAN - RADIOLOGY/IMAGING (02/19/2024) Anatomical Region Laterality Modality Other us Andres Estrella MD Final Res ult * NM Myocardial Amyloidosis Imaging SPECT/CT (02/01/2024 2:10 PM PET ADOPTION COUNSELOR) Anatomical Region Laterality Modality N/A Nuclear Medicine 02/01/2024 4:32 PM PET ADOPTION COUNSELOR Impressions 02/01/2024 4:37 PM PET ADOPTION COUNSELOR This study demonstrates no abnormal myocardial uptake of Tc-99m pyrophosphate (Grade 0). See comments below. GENERAL COMMENTS CONCERNING THE INTERPRETATION OF TC-99M PYROPHOSPHATE IMAGING FOR DIAGNOSIS OF CARDIAC AMYLOIDOSIS A negative (Grade 0) Tc-99m pyrophosphate scan effectively excludes transthyretin-related cardiac amyloidosis (ATTR), but does not exclude light chain (AL) amyloidosis. If cardiac amyloidosis is suspected despite a negative scan, assessment of monoclonal proteins in serum or urine should be performed, if not already done, to assess for AL amyloidosis. A clearly positive (Grade 2 or 3) Tc-99m pyrophosphate scan can reflect either ATTR or AL amyloidosis, but has a high positive predictive value for ATTR amyloidosis if serum or urine monoclonal proteins are negative. A mildly positive (Grade 1) Tc-99m pyrophosphate scan can indicate either an early stage of ATTR or AL amyloidosis and further distinction requires assessment of monoclonal proteins in serum or urine. For further information, see the ASNC/AHA/ASE/EANM/HFSA/TERE/SCMR/SNMMI Expert Consensus Recommendations for Multimodality Imaging in Cardiac Amyloidosis (https://pubmed.ncbi.nlm.nih.gov/38727901/ and https://pubmed.ncbi.nlm.nih.gov/04776400/). Dictated by: Blessing Bills MD The radiology attending physician has personally reviewed this study, and had reviewed and/or edited this written report and agrees with it. Electronically signed by: Cornell Man M.D. Narrative 02/01/2024 4:37 PM PET ADOPTION COUNSELOR EXAMINATION: MYOCARDIAL AMYLOID SCINTIGRAPHY (PLANAR/SPECT-CT) DATE OF STUDY: 02/01/2024 RADIOPHARMACEUTICAL: 32.31 mCi Tc-99m pyrophosphate (PYP) i.v. HISTORY: 73-year-old man with atrial fibrillation, coronary artery disease, post CABG in 2019. COMPARISON: None FINDINGS: Approximately 2.5 hours following administration of Tc-99m pyrophosphate, a planar image of the chest and upper abdomen was performed in the anterior projection, followed by SPECT/CT imaging of the chest. (The low-dose noncontrast CT images are used for attenuation correction and for fusion with emission SPECT images to allow for anatomical localization of SPECT findings and to better distinguish blood pool activity from myocardial uptake of the tracer.) On the planar image, tracer uptake within the region of the myocardium appears to be less than bone (grade 1). However, additional SPECT/CT images were subsequently obtained to better distinguish between blood pool activity and myocardial uptake, and to better detect small areas of abnormal uptake. SPECT/CT images show no abnormal tracer uptake. After review of SPECT/CT images, myocardial uptake is assessed to be 0 on a 0-3 scale. Incidental findings on the low-dose CT images: Coronary and aortic stents versus calcifications. Right hilar calcified lymph node represents old granulomatous disease. Degenerative changes in the spine. Procedure Note Cornell Man MD - 02/01/2024 EXAMINATION: MYOCARDIAL AMYLOID SCINTIGRAPHY (PLANAR/SPECT-CT) DATE OF STUDY: 02/01/2024 RADIOPHARMACEUTICAL: 32.31 mCi Tc-99m pyrophosphate (PYP) i.v. HISTORY: 73-year-old man with atrial fibrillation, coronary artery disease, post CABG in 2019. COMPARISON: None FINDINGS: Approximately 2.5 hours following administration of Tc-99m pyrophosphate, a planar image of the chest and upper abdomen was performed in the anterior projection, followed by SPECT/CT imaging of the chest. (The low-dose noncontrast CT images are used for attenuation correction and for fusion with emission SPECT images to allow for anatomical localization of SPECT findings and to better distinguish blood pool activity from myocardial uptake of the tracer.) On the planar image, tracer uptake within the region of the myocardium appears to be less than bone (grade 1). However, additional SPECT/CT images were subsequently obtained to better distinguish between blood pool activity and myocardial uptake, and to better detect small areas of abnormal uptake. SPECT/CT images show no abnormal tracer uptake. After review of SPECT/CT images, myocardial uptake is assessed to be 0 on a 0-3 scale. Incidental findings on the low-dose CT images: Coronary and aortic stents versus calcifications. Right hilar calcified lymph node represents old granulomatous disease. Degenerative changes in the spine. IMPRESSION: This study demonstrates no abnormal myocardial uptake of Tc-99m pyrophosphate (Grade 0). See comments below. GENERAL COMMENTS CONCERNING THE INTERPRETATION OF TC-99M PYROPHOSPHATE IMAGING FOR DIAGNOSIS OF CARDIAC AMYLOIDOSIS A negative (Grade 0) Tc-99m pyrophosphate scan effectively excludes transthyretin-related cardiac amyloidosis (ATTR), but does not exclude light chain (AL) amyloidosis. If cardiac amyloidosis is suspected despite a negative scan, assessment of monoclonal proteins in serum or urine should be performed, if not already done, to assess for AL amyloidosis. A clearly positive (Grade 2 or 3) Tc-99m pyrophosphate scan can reflect either ATTR or AL amyloidosis, but has a high positive predictive value for ATTR amyloidosis if serum or urine monoclonal proteins are negative. A mildly positive (Grade 1) Tc-99m pyrophosphate scan can indicate either an early stage of ATTR or AL amyloidosis and further distinction requires assessment of monoclonal proteins in serum or urine. For further information, see the ASNC/AHA/ASE/EANM/HFSA/TERE/SCMR/SNMMI Expert Consensus Recommendations for Multimodality Imaging in Cardiac Amyloidosis (https://pubmed.ncbi.nlm.nih.gov/32494523/ and https://pubmed.ncbi.nlm.nih.gov/59623175/). Dictated by: Blessing Bills MD The radiology attending physician has personally reviewed this study, and had reviewed and/or edited this written report and agrees with it. Electronically signed by: Cornell Man M.D. us Andres Estrella MD IMG NM PROCEDURES Final R esult * POCT lipid panel (06/26/2023 11:13 AM CDT) Cholesterol, POC <100 mg/dL HDL, POC 21 mg/dL Triglycerides, POC 94 mg/dL LDL Cholesterol POC 60 mg/dL Chol/HDL Ratio, POC N/A Non-HDL Cholesterol, POC N/A mg/dL Cholesterol Total, POC <100 mg/dL Capillary blood 06/26/2023 1 1:13 AM CDT us Andres Estrella MD POINT OF CARE TEST ORDERA BLES Edited Result - Final * eGFR (05/31/2018 7:24 AM CDT) eGFR 103 mL/min/1.7 3 m2 [facility] Comment: Interpretive Data Reference Interval Normal >/= 90 mL/min/1.73m2 Mildly decreased* 60 - 89 mL/min/1.73m2 Mildly to moderately decreased 45 - 59 mL/min/1.73m2 Moderately to severely decreased 30 - 44 mL/min/1.73m2 Severely decreased 15 - 29 mL/min/1.73m2 Kidney Failure < 15 mL/min/1.73m2 *Relative to young adult level If -N[place] multiply value by 1.16. Estimated glomerular filtration rate is determined by the CKD-EPI equation recommended by the National Kidney Foundation (KDIGO 2012 Clinical Practice Guideline for the Evaluation and Management of Chronic Kidney Disease. Kidney Intnl Suppl Feb 2012;3:1). The CKD-EPI equation should not be used for patients with unstable renal function and has not been validated in children and those over 70. Current interpretive data was last reviewed 2015. Blood specimen (specimen) 05/31/2018 7:24 AM CDT 05/31/2018 7:35 AM CDT Narrative [facility] - 05/31/2018 8:05 AM CDT Chun Santiago MD LAB BLOOD ORDERABLES Final R esult [facility] [id number] [address] Department [place] [address] from Last 3 Months or Most Recently Relevant to Health Maintenance Insurance MEDICARE MEDICARE [facility] MEDICARE SUPPLEMENT MEDICARE [facility] MEDICARE BLUE CROSS MEDICARE SUPPLEMENT Advance Directives For more information, please contact: [phone] * Full Code (Latest Code Status on File) Date Activated Date Inactivated Comments 06/02/2018 8:06 PM * Full Code Date Activated Date Inactivated Comments 05/24/2018 4:29 PM 05/31/2018 7:15 PM Care Teams Research Chief Engineer Relationship Specialty Start Date End Date Bernardo Rose MD [address] [facility] [address] [place] [address] PCP - General Family Medicine 01/26/18
--- OUTSIDE RECORDS SUMMARY | 2024-04-13 07:04 | XMS_ITS | Clinical Summary ---
Author Organization [facility] [address] Address [address] [place] [address] Care Team Providers Care Sales And Leasing Consultant Name Role Phone Bernardo Rose MD Primary Care Provider Allergies No known active allergies Medications budesonide-form oterol (SYMBICORT) 160-4.5 mcg/actuation inhaler Inhale 2 puffs 2 (two) times a day Rinse mouth with water after use. Do not swallow. 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 CTA abdomen pelvis ordered further evaluation. Continue ASA statin therapy. Status post mitral valve repair 06/24/2018 Hx of CABG 06/24/2018 S/P left atrial appendage ligation 06/24/2018 Hyperglycemia 05/24/2018 Mitral valve insufficiency 04/13/2018 Overview (04/13/2018): Added automatically from request for surgery [id number] Persistent atrial fibrillation 01/26/2018 CAD (coronary artery disease) 01/26/2018 Obstructive sleep apnea 01/26/2018 Mitral valve prolapse 01/26/2018 Non-rheumatic mitral regurgitation 01/26/2018 Hypertension associated with diabetes 01/26/2018 Assessment & Plan (03/29/2024 9:34 AM LOSS CLAIM CLERK): Stable continue amlodipine Hyperlipidemia associated with type 2 diabetes olivia young 01/26/2018 Hyperlipidemia LDL goal <70 01/26/2018 Assessment & Plan (03/29/2024 9:34 AM LOSS CLAIM CLERK): Stable continue Lipitor Pulmonary emphysema 01/26/2018 Encounters Date Type Department Care Team Description 04/07/2024 3:12 PM LOSS CLAIM CLERK - 04/07/2024 11:59 PM LOSS CLAIM CLERK Hospital Encounter [facility] [address] [place] [address] Infrarenal abdominal aortic aneurysm (AAA) without rupture (HCC) Discharge Disposition: Discharge to home or self care 03/23/2024 11:00 AM LOSS CLAIM CLERK Office Visit [facility] Medical Group Vascular at [address] [place] [address] Baltazar Parker MD Infrarenal abdominal aortic aneurysm (AAA) without rupture (HCC) (Primary Dx); Hyperlipidemia LDL goal <70; Hypertension associated with diabetes (HCC) 03/23/2024 Orders Only [facility] Group Vascular at [address] [place] [address] Baltazar Parker MD Infrarenal abdominal aortic aneurysm (AAA) without rupture (HCC) (Primary Dx) 03/15/2024 8:00 AM LOSS CLAIM CLERK Ancillary Procedure [facility] Vascular and Vein Surgery at [address] [place] [address] Aneurysm of ascending aorta without rupture (HCC) 03/04/2024 Telephone [facility] Cardiology [address] [place] [address] Andres Estrella MD 02/19/2024 11:10 AM LOSS CLAIM CLERK - 02/19/2024 11:59 PM LOSS CLAIM CLERK Hospital Encounter [facility] [employer] [address] [place] [address] Discharge Disposition: Discharge to home or self care 02/19/[address] 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); Cardiomyopathy, ischemic; Chronic systolic CHF (congestive heart failure) (CMS/HCC) (HCC); Hyperlipidemia associated with type 2 diabetes mellitus (HCC); Hypertension associated with diabetes (HCC); Status post mitral valve repair 02/01/2024 10:01 AM LOSS CLAIM CLERK - 02/01/2024 11:59 PM LOSS CLAIM CLERK Hospital Encounter [facility] [address] [place] [address] Discharge Disposition: Discharge to home or self care 02/01/2024 10:00 AM LOSS CLAIM CLERK - 02/01/2024 11:59 PM LOSS CLAIM CLERK Hospital Encounter [facility] [address] [place] [address] Abnormal echocardiogram Discharge Disposition: Discharge to home or self care 01/15/2024 Telephone [facility] Medical [facility] Cardiology [address] [place] [address] Andres Estrella MD from Last 3 Months Surgical History Surgery Date Site/Laterality Comments BASAL CELL CARCINOMA EXCISION nose UMBILICAL HERNIA REPAIR VASECTOMY CORONARY ARTERY BYPASS GRAFT Medical History Medical History Date Comments Hypertension Myocardial infarction (HCC) Atrial fibrillation (CMS/HCC) (HCC) Hyperlipidemia Sleep apnea COPD (chronic obstructive pulmonary disease) (HC C) Coronary artery disease Type 2 diabetes mellitus (HCC) Hypothyroidism Depression Emphysema of lung (HCC) Basal cell carcinoma Cataract Family History Medical History Relation Name Comments Heart disease Father Luzma Pinto Dementia Mother Other Sister 1 No Known Problems Sister 2 Relation Name Status Comments Father Luzma Pinto (Age 68) Mother (Age 84) COD overdo se Sister 1 (Age 67) Sister 2 Alive Social History Tobacco Use Types Packs/Day Years [...] on file Sexual Orientation Not on file Obstetrics History Last Filed Vital Signs Vital Sign Reading Time Taken Comments Blood Pressure 134/85 03/23/2024 10:51 AM LOSS CLAIM CLERK Pulse 73 03/23/2024 10:51 AM LOSS CLAIM CLERK Temperature 36.8 C (98.3 F) 02/03/2021 1:55 PM LOSS CLAIM CLERK Respiratory Rate 16 01/05/2024 10:18 AM LOSS CLAIM CLERK Oxygen Saturation 94% 03/23/2024 10:51 AM LOSS CLAIM CLERK Inhaled Oxygen Concentration - - Weight 102.1 kg (225 lb) 03/23/2024 10:51 AM LOSS CLAIM CLERK Height 177.8 cm (5' 10 ) 03/23/2024 10:51 AM LOSS CLAIM CLERK Body Mass Index 32.28 03/23/2024 10:51 AM LOSS CLAIM CLERK Plan of Treatment Health Maintenance Due Date Last Done Comments Albumin Creatinine Ratio, Urine 1950 Colon Cancer Screening-Colonoscopy 1950 Depression Screening 1950 Fall Risk Assessment 1950 Hemoglobin A1C 1950 Hepatitis C Screening 1950 Dilated Eye Exam 1950 Foot Exam 1950 DTaP/Tdap/Td Vaccine (1 - Tdap) 09/03/1959 Hepatitis B Screening 1966 Well Visit 65+ 2013 eGFR 06/01/2019 05/31/2018, 08/2018, 05/29/2018, Additional history exists Influenza Vaccine (#1) 2023 , 11/23/2018, 11/23/2017, Additional history exists Lipid Panel 06/25/2024 06/26/2023, 07/25, 08/21/2021, Additional history exists Zoster Vaccine Completed 10/06/2017, 06/24/2017 Pneumococcal vaccine 65+ Completed 01/20/2018, 04/2016 Abdominal Aortic Aneurysm (A AA) Screen Completed 04/07/2024, 04/07/2024, 03/23/2024, Additional history exists Medical Devices Implanted Type Area Bicycle Assembler Device Identifier Shelf Expiration Date Model / Serial / Lot Atricure Atriclip Implanted:Qty: 1 on 05/24/2018 by Chun Santiago MD at [facility] N/A: Heart Atricure 02/23/2021 [id number] / [id number] Description:Left atrial appe ndage [employer] [id number] Ashley-Mccar thy-Harvey Imr Etlogix 32mm 3d Reduced Curvature - [id number] - [id number] Implanted:Qty: 1 on 05/24/2018 by Chun Santiago MD at [facility] N/A: Heart [employer] [id number] 06/05/2020 [id number] / [id number] / Procedures Procedure Name Priority Date/Time Associated Diagnosis Comments CTA ABDOMEN PELVIS W WO CONTRAST Schedule Routine, Read Routine (OP Routine) 04/07/2024 3:41 PM LOSS CLAIM CLERK Infrarenal abdominal aortic aneurysm (AAA) without rupture (HCC) POCT CREATININE FOR CONTRAST EVALUATION Routine 04/07/2024 3:33 PM LOSS CLAIM CLERK US DUPLEX SCAN AORTA, IVC ILIAC COMPLETE Schedule Routine, Read Routine (OP Routine) 03/15/2024 8:33 AM LOSS CLAIM CLERK Aneurysm of ascending aorta without rupture (HCC) CT BODY OUTSIDE REFERENCE Routine 02/19/2024 11:10 AM LOSS CLAIM CLERK SCAN - RADIOLOGY/IMAGING 02/19/2024 NM MYOCARDIAL AMYLOIDOSIS IMAGING SPECT/CT Schedule Routine, Read Routine (OP Routine) 02/01/2024 2:10 PM LOSS CLAIM CLERK Abnormal echocardiogram POCT LIPID PANEL Routine 06/26/2023 11:1 3 AM CDT Lipid screening EGFR Routine 05/31/2018 7:24 AM CDT from Last 3 Months or Most Recently Relevant to Health Maintenance Results * CTA Abdomen Pelvis (04/07/2024 3:41 PM LOSS CLAIM CLERK) Anatomical Region Laterality Modality Body N/A Computed Tomogra phy 04/07/2024 3:52 PM LOSS CLAIM CLERK Narrative 04/07/2024 4:16 PM LOSS CLAIM CLERK EXAM DESCRIPTION: CTA ABDOMEN PELVIS REASON FOR STUDY: Infrarenal AAA Infrarenal AAA, Infrarenal abdominal aortic aneurysm (AAA) without rupture, since 2019 TECHNIQUE: CTA scan of the [...] Nita Fernandez D.O. PS: PS Report ID: [id number] Reading Location: [id number] Procedure Note Nita Fernandez, DO - 04/07/2024 EXAM DESCRIPTION: CTA ABDOMEN [...] Nita Fernandez D.O. PS: PS Report ID: [id number] Reading Location: [id number] Baltazar Parker MD IM CT PROCEDURES Final Result * POCT creatinine for contrast evaluation (04/07/2024 3:33 PM LOSS CLAIM CLERK) Creatinine POC 0.90 0.80 - 1.30 mg/dL Comment:Testing performed by : [facility], [address] [place] [address], [place]., [address] Blood 04/07/2024 3:33 PM LOSS CLAIM CLERK 04/07/2024 3:33 PM LOSS CLAIM CLERK us Baltazar Parker MD POINT OF CARE TEST ORDERABLES Fi nal Result Performing Organization Address City/State/[facility] Co de Phone Number [facility] [address] [facility] Department [place] [address] * US Duplex Scan Aorta, IVC Iliac Complete (03/15/2024 8:33 AM LOSS CLAIM CLERK) LV EF % CONS SCIMAGE Anatomical Region Laterality Modality Vascular N/A Ultrasound 03/15/2024 8:07 AM LOSS CLAIM CLERK Narrative 03/15/2024 8:58 AM LOSS CLAIM CLERK Vascular & Vein Surgery [address] [place] [address] Abdominal Aortic Duplex Ultrasound Report Patient Name: FOX BECKHAM : 1950 Study Date: 03/15/2024 8:07:20 AM Gender: M Assistant Athletic Trainer: Location: VV Ref Provider: ANDRES ESTRELLA Quality: Adequate Order Provider: ANDRES ESTRELLA PROCEDURES: Arterial Report: Duplex ultrasound imaging of the abdominal aorta. INDICATIONS: AAA seen on prior CT and I71.21 Aneurysm of the ascending aorta, without rupture. HISTORY: Hypertension. Hyperlipidemia. Coronary artery disease S/P CABG. Congestive heart failure. Afib. Ascending AO aneurysm. Former smoker. COMPARISONS: Prior CT @ [place] 02/19/24. MEASUREMENTS: Velocities Value Diameters Value Aorta [...] Baltazar Parker MD B 03/15/2024 8:57:02 AM LOSS CLAIM CLERK Procedure Note Baltazar Parker MD - 03/15/2024 Vascular & Vein Surgery [address] [facility] [place] [address] Abdominal Aortic Duplex Ultrasound Report Patient Name: FOX BECKHAM : 1950 Study Date: 03/15/2024 8:07:20 AM Gender: M Assistant Athletic Trainer: DREA Location: VVSE Ref Provider: ANDRES ESTRELLA Quality: Adequate Order Provider: ANDRES ESTRELLA PROCEDURES: Arterial Report: Duplex ultrasound imaging of the abdominal aorta. INDICATIONS: AAA seen on prior CT and I71.21 Aneurysm of the ascending aorta, withoutrupture. HISTORY: Hypertension. Hyperlipidemia. Coronary artery disease S/P CABG. Congestiveheart failure. Afib. Ascending AO aneurysm. Former smoker. COMPARISONS: Prior CT @ [place] 02/19/24. MEASUREMENTS: Velocities Value DiametersValue Aorta Prx [...] By: MD TAYLOR Larkin 03/15/2024 8:57:02 AM LOSS CLAIM CLERK us Andres Estrella MD [facility] US PROCEDURES Final R esult * CT Body Outside Reference (02/19/2024 11:10 AM LOSS CLAIM CLERK) Narrative [id number] - 03/24/2024 10:51 AM LOSS CLAIM CLERK This order has been auto-finalized and does not contain a result. us Provider Transcribed Order IMG CT PROCEDURES Fin al Result [id number] * SCAN - RADIOLOGY/IMAGING (02/19/2024) Anatomical Region Laterality Modality Other us Andres Estrella MD Final Res ult * NM Myocardial Amyloidosis Imaging SPECT/CT (02/01/2024 2:10 PM LOSS CLAIM CLERK) Anatomical Region Laterality Modality N/A Nuclear Medicine 02/01/2024 4:32 PM LOSS CLAIM CLERK Impressions 02/01/2024 4:37 PM LOSS CLAIM CLERK This study demonstrates no abnormal myocardial uptake [...] Recommendations for Multimodality Imaging in Cardiac Amyloidosis (https://pubmed.ncbi.nlm.nih.gov/38610884/ and https://pubmed.ncbi.nlm.nih.gov/93589632/). Dictated by: Blessing Bills MD The radiology attending physician has personally reviewed this study, and had reviewed and/or edited this written report and agrees with it. Electronically signed by: Cornell Man M.D. Narrative 02/01/2024 4:37 PM LOSS CLAIM CLERK EXAMINATION: MYOCARDIAL AMYLOID SCINTIGRAPHY (PLANAR/SPECT-CT) DATE OF [...] Recommendations for Multimodality Imaging in Cardiac Amyloidosis (https://pubmed.ncbi.nlm.nih.gov/89708791/ and https://pubmed.ncbi.nlm.nih.gov/23877587/). Dictated by: Blessing Bills MD The radiology [...] Capillary blood 06/26/2023 1 1:13 AM CDT Andres Estrella MD POINT OF CARE TEST ORDERA BLES Edited Result - Final * eGFR (05/31/2018 7:24 AM CDT) eGFR 103 mL/min/1.7 3 m2 HARRY Comment: Interpretive Data Reference Interval Normal >/= 90 mL/min/1.73m2 Mildly decreased* 60 - 89 mL/min/1.73m2 Mildly to moderately decreased 45 - 59 mL/min/1.73m2 Moderately to severely decreased 30 - 44 mL/min/1.73m2 Severely decreased 15 - 29 mL/min/1.73m2 Kidney Failure < 15 mL/min/1.73m2 *Relative to young adult level If -[place] multiply value by 1.16. Estimated glomerular filtration [...] CDT 05/31/2018 7:35 AM CDT Narrative HARRY - 05/31/2018 8:05 AM CDT Chun Santiago MD LAB BLOOD ORDERABLES Final R esult HARRY [address] Department [place] [address] from Last 3 Months or Most Recently Relevant to Health Maintenance Insurance MEDICARE MEDICARE [facility] [place] [id number] [facility] MEDICARE [facility] MEDICARE SUPPLEMENT Advance Directives For more information, please contact: [phone] * Full Code (Latest Code Status on File) Date Activated Date Inactivated Comments 06/02/2018 8:06 PM * Full Code Date Activated Date Inactivated Comments 05/24/2018 4:29 PM 05/31/2018 7:15 PM Care Teams Sales And Leasing Consultant Relationship Specialty Start Date End Date Bernardo Rose MD [address] [facility] [address] [place] [address] PCP - General Family Medicine 01/26/18
--- OUTSIDE RECORDS SUMMARY | 2024-04-13 07:04 | XMS_ITS | Clinical Summary ---
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 Gender Identity Not on file Sexual Orientation Not on file Plan of Treatment Health Maintenance Due Date Last Done Comments Colorectal Cancer Screening Colonoscopy (10 Years) 1950 Hepatitis C 1966 DTaP, Tdap and Td Vaccines ( 1 - Tdap) 09/03/1967 Zoster Vaccines (1 of 2) 1998 Annual Medicare Wellness Visit 2013 Pneumococcal Vaccine: 65+ Ye ars (1 of 1 - PCV) 2013 RSV Immunization or 60+ Years (1 - 1-dose 75+ series) 09/03/2023 COVID-19 Vaccine ( - 2023-2 5 season) 2023 Influenza Adult (#1) 2023 Meningococcal B Vaccine Aged Out No l onger eligible based on patient's age to complete this topic Meningococcal Vaccine Aged Out No ramez princess eligible based on patient's age to complete this topic RSV Immunizations Under 20 Months Aged Out No longer eligible based on patient's age to complete this topic Insurance MEDICARE [facility] Care Teams Screening Representative Relationship Specialty Start Date End Date Bernardo Rose MD [address] [place] [address] PCP - General FAMILY PRACTICE 09/17/21
--- OUTSIDE RECORDS SUMMARY | 2024-04-13 07:04 | XMS_ITS | Encounter Summary ---
Author Organization [facility] Healthcare Address [address] [place] [address] Care Team Providers Care Snuff Blender Name Role Phone Bernardo Rose MD Primary Care Provider Encounter Details Date Type Department Care Team ([facility] Contact Info) Description 02/19/2024 Orders Only [facility] Health Information Management [address] [place] [address] Neil Arias MD [facility] [place] [address] Social History Tobacco Use Types Packs/Day Years Used Date Smoking Tobacco: Former Cigarettes Q uit: 01/27/2004 Smokeless Tobacco: Never Alcohol Use Standard Drinks/Week Comments No 0 (1 standard drink = 0.6 oz pur e alcohol) Sex and Gender Information Value Date Recorded Sex Assigned at Not on file Legal Sex Male 2:02 PM CDT Gender Identity Not on file Sexual Orientation Not on file documented as of this encounter Plan of Treatment Not on file documented as of this encounter Procedures Procedure Name Priority Date/Time Associated Diagnosis Comments SCAN - RADIOLOGY/IMAGING 02/19/2024 documented in this encounter Results * SCAN - RADIOLOGY/IMAGING (02/19/2024) Anatomical Region Laterality Modality Other us Neil Arias MD Final Res ult documented in this encounter Visit Diagnoses Not on filedocumented in this encounter Care Teams Snuff Blender Relationship Specialty Start Date End Date Bernardo Rose MD [address] [facility] [address] [place] [address] PCP - General Family Medicine 01/26/18 documented as of this encounter
--- OUTSIDE RECORDS SUMMARY | 2024-04-13 07:04 | XMS_ITS | Encounter Summary ---
Author Name [facility] [facility] [place] Address [address] [place] [address] Care Team Providers Care Fur Dressing Supervisor Name Role Phone CAMMY GILMORE Primary Care Provider Unavailabl e Insurance Providers: All historical and current Section Date Range: From patient's date of to the date document was created. This section includes the names of all active insurance providers for the patient. Insurance Provider Type of Coverage Plan Name Start of Policy Coverage End of Policy Coverage Group Number Member ID Insurance Provider's Telephone Number Policy Howe's Name Patient's Relationship to Policy Howe ANTHEM BCBS [place] MED[place]ARE SUPPLEMEN JAMIN MEDIC ARE SUPPL EMENT Aug 23, 2013 [id number] [phone] CHAPINCITO, JUSTIN PATIENT ANTHE[place] SUPPLEMEN JAMIN MEDIC ARE SUPPL EMENT Aug 23, 2013 [id number] [phone] CHAPINCITO, JUSTIN PATIENT ANTHEM [place] SUPPLEMEN JAMIN MEDIC ARE SUPPL EMENT Aug 23, 2013 [id number] [phone] CHAPINCITO, JUSTIN PATIENT [place] SUPPLE[place] JAMIN MEDIC ARE SUPPL EMENT Aug 23, [id number] [phone] CHAPINCITO, JUSTIN PATIENT ANTHEM [place] MED[place] SUPPLEMEN JAMIN MEDIC ARE SUPPL EMENT Aug 23, 2013 [id number] [phone] CHAPINCITO, JUSTIN PATIENT [place] SUPPLEMEN JAMIN MEDIC ARE SUPPL EMENT Aug 23, 2013 [id number] [phone] CHAPIN[place]O, JUST[place] PATIENT [place] SU[place]AMIN MEDIC ARE SUPPL EMENT Aug 23, 2013 [id number] [phone] CHAPINCITO, JUSTIN PATIENT MEDICARE (WNR) MEDICARE (M) PART B Nov 23, 2010 PART B [id number] CHAPINCITO, JUSTIN PATIENT MEDICARE (WNR) MEDICARE (M) PART B Nov 23, 2010 PART B [id number] CHAPINCITO, JUSTIN PATIENT MEDICARE (WNR) MEDICARE (M) PART B Nov 23, 2010 PART B [id number] CHAPINCITO, JUSTIN PATIENT MEDICARE (WNR) MEDICARE (M) PART A Nov 23, 2009 PART A [id number] CHAPINCITO, JUSTIN PATIENT MEDICARE (WNR) MEDICARE (M) PART A Nov 23, 2009 PART A [id number] CHAPINCITO, JUSTIN PATIENT MEDICARE (WNR) MEDICARE (M) PART A Nov 23, 2009 PART A [id number] CHAPINCITO, JUSTIN PATIENT Selected Encounter This section includes the information on record at [place] for the Encounter. Date/Time Encounter Type Encounter Description Reason Provider Source Aug 31, 2023 01:00 PM OFFICE O/P EST MOD 30 MIN OPTOMETRY ICD-10-CM H34.231 Retinal artery branch occlusion, right eye FERNANDO WEAVER E Encounter Template Text not used by [place] Assessments - Encounter Diagnoses This section includes the primary and secondary diagnoses documented for the Encounter. Date/Time Primary/Secondary Diagnosis Diagnosis Name Provider Source Sep 08, 2023 12:32 PM PRIMARY Retinal artery branch occlusion, right eye FERNANDO WEAVER [facility] Sep 08, 2023 12:32 PM SECONDARY Cataract extraction status, unspecified eye FERNANDO WEAVER [facility] Sep 08, 2023 12:32 PM SECONDARY Tributary (branch) retinal vein occlusion, right eye, stable FERNANDO WEAVER [facility] Sep 08, 2023 12:32 PM SECONDARY Type 2 diabetes mellitus without complications FERNANDO WEAVER [facility] Sep 08, 2023 12:32 PM SECONDARY Unspecified disorder of refraction FERNANDO WEAVER [facility] Plan of Treatment: Future Appointments (+ 6 months) and Future Tests (+/- 45 days) The Plan of Treatment section includes future care activities for the patient [facility] [place] [facility] This section includes future appointments and future orders which are active, pending or scheduled. Future Appointments This section includes appointments that were scheduled to occur 6 months from the date of the Encounter, up to a maximum of 20 appointments. The data comes from all [place] treatment facilities. Appointment Date/Time Appointment Type Appointme nt Facility Name Sep 09, 2023 11:00 AM AMBULATORY - MEDICINE [facility] Social History: Smoking Status (Most current) and Tobacco Use (All prior to encounter date) This section includes the most current, and the historical, smoking and tobacco- related health factors from the [place] facility where the Encounter took place. Current Smoking Status This section includes the most current smoking, or tobacco-related health factor, from the [place] facility where the Encounter took place. Date/Time Current Smoking Status Comment Florentino ity Oct 07, 2022 04:23 PM VA-TOBACCO FORMER USER [facility] Tobacco Use History This section includes a history of the smoking, or tobacco-related health factors, that were collected on or before the date of the Encounter. The data comes from the [place] facility where the Encounter took place. Date/Time Smoking Status/Tobacco Use Comment F acility Oct 07, 2022 04:23 PM [place]-TOBACCO QUIT 15 YRS OR MORE [facility] Encounter Notes: All associated encounter notes This section contains the clinical notes associated to the Encounter. Date/Time Encounter Note(s) Provider Source Aug 31, 2023 01:03 PM OPTOMETRY NOTE: LOCAL TITLE: OPTOMETRY NOTE STANDARD TITLE: OPTOMETRY NOTE DATE OF NOTE: AUG 31, 2023@13:03 ENTRY DATE: AUG 31, 2023@13:03:41 AUTHOR: ANDRES WEAVER EXP COSIGNER: URGENCY: STATUS: COMPLETED Last seen: 09/2022 CC: 1. follow up HHP, retinal hemes OS CUS 07/15/2022 at [facility] <50% R and L ICA Missed f/u 01/2023 pt on blood thinners and ASA no changes to vision no s/s of TIA/amaurosis 2. PCIOL OU Ocular meds: none Ocular ROS: (+) HHP and associated retina/ hemes OS CUS 07/15/2022 at [facility] <50% R and L ICA Drusen vs early AMD Pseudophakia OU ([facility]) Family OcHX: (-) blindness (-) glaucoma (+) AMD -- mother (-) RD BP: 120/70 (10/09/2022 11:14) BUN ____ No CREATININE EO data found No HEMOGLOBIN A1C EO data found No GLUCOSE EO data found VISUAL ACUITY Distance Visual Acuity OD: 20/20 OS: 20/20 Mrx: OD SPHERE: +0.25 CYL: -0.50 AXIS: 132 20/20 OS SPHERE: +0.25 SPH 20/20 ADD: +2.75 Pupils PERRL OU (-)APD Confrontation: FTFC OU Extra-Ocular Muscles Full OU Externals/adnexa: Unremarkable OU SLIT LAMP EXAMINATION Lids/Lashes/Lacrimal No blepharitis OU Conjunctiva/Sclera White/quiet OU Cornea Clear OU Ant Chamber 4+ N/T angles on VH, deep and quiet OU Iris Normal, (-)NVI OU Lens PCIOL centered, periph PCO OS>OD Intraocular Pressures (Goldmann) 1 gtt fluress OU Date OD OS Time Meds 06/02/2022 14 13 1026 NONE 09/30/2022 12 11 1130 none 08/31/23 14 14 1303 none RETINAL EVALUATION1 proparacaine 0.5%, 1 phenyl 2.5%, 1 trop 1% OU DFE Dilated retinal exam Optic Nerve OD: 0.3 Flat, pink, distinct (-)NVD OS: 0.3 Flat, pink, distinct (-)NVD Vessels: 2/3 OU, (-)NVE OU Posterior Pole: OD: (-)hemes/exudates/CWS OS: (+)HHP at 2nd bifurcation of S-T arcades with distal BRVO-scatered blotty hemes, no liang Macula: OD: Flat, clear (-)CSME OS: tr pinpoint parafoveal drusen, (-)CSME Periphery: OD: Flat and intact 360 OS: few blot heme S-T mid-periphery extending from RVO Vitreous: syneresis OU Assessment/Plan 08/31/23 1. 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 - Low risk for ischmeic issues goiven small size and duration of ~12 months. -- DFE 6 mnonths, RACHEL if visual changes 3. 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
--- OUTSIDE RECORDS SUMMARY | 2024-04-13 07:04 | XMS_ITS | Encounter Summary ---
Author Name [facility] [place] [facility] [place] Address [address] [place] [address] Care Team Providers Care Traveler Changer Name Role Phone CAMMY GILMORE Primary Care [...] MEDIC ARE SUPPL EMENT Aug 23, 2013 [id number] [phone] CHAPINCITOJUSTIN ADORNO PATIENT ANTHEM BCBS [place] MED[place] SUPPLEMEN JAMIN MEDIC ARE SUPPL EMENT Aug 23, 2013 [id number] [phone] CHAPINCITO, JUSTIN PATIENT ANTHEM [place] SUPPLEMEN JAMIN MEDIC ARE SUPPL EMENT Aug 23, 2013 [id number] [phone] CHAPINCITO, JUSTIN PATIENT AN[place] SUPPLEMEN JAMIN MEDIC ARE SUPPL EMENT Aug 23, 2013 [id number] [phone] CHAPINCITOJUSTIN ADORNO PATIENT ANTHE[place] SUPPLEMEN JAMIN MEDIC ARE SUPPL EMENT Aug 23, 2013 [id number] [phone] CHAPINCITO, JUSTIN PATIENT [place]BS [place] MED[place] SUPPLEMEN JAMIN MEDIC ARE SUPPL EMENT Aug 23, 2013 [id number] [phone] CHAPINCITO, JUSTIN PATIENT [place] SU[place] JAMIN MEDIC ARE SUPPL EMENT Aug 23, 2013 [id number] [phone] CHAPINCITO, JUSTIN PATIENT MEDICARE (WNR) MEDICARE (M) PART B Nov 23, 2010 PART B [id number] CHAPINCITO, JUSTIN PATIENT MEDICARE (WNR) MEDICARE (M) PART B Nov 23, 2010 PART B [id number] CHAPINCITO, JUSTIN PATIENT MEDICARE (WNR) MEDICARE (M) PART B Nov 23, 2010 PART B [id number] CHAPINCITO, JUSTIN PATIENT MEDICARE (WNR) MEDICARE (M) PART A Nov 23, 2009 PART A [id number] CHAPINCITO, JUSTIN PATIENT MEDICARE (WNR) MEDICARE (M) PART A Nov 23, 2009 PART A [id number] CHAPINCITO, JUSTIN PATIENT MEDICARE (WNR) MEDICARE (M) PART A Nov 23, 2009 PART A [id number] CHAPINCITO, JUSTIN PATIENT Selected Encounter This section includes the information on record at [place] for the Encounter. Date/Time Encounter Type Encounter Description Reason Provider Source Oct 07, 2023 03:05 PM HEARING AID FITTING/CHECKIN G AUDIOLOGY ICD-10-CM H90.3 Sensorineural hearing loss, bilateral FAITH FISHER Encounter Template Text not used by [place] Assessments - Encounter Diagnoses This section includes the primary and secondary diagnoses documented for the Encounter. Date/Time Primary/Secondary Diagnosis Diagnosis Name Provider Source Oct 07, 2023 03:19 PM PRIMARY Sensorineural hearing loss, bilateral ROSALIND BEAUCHAMP [facility] Lab Results: +/- 30 days of the encounter This section includes the Chemistry and Hematology Lab Results on record with [place] for the patient. Radiology Reports and Pathology Reports are provided separately, in subsequent sections. Lab Results This section contains the Chemistry/Hematology Results that were resulted 30 days before or 30 daysafter the date of the Encounter. Date/Time Source Result Type Result - Unit Interpretation Reference Range Comment Oct 06, 2023 08:22 AM [facility] B12 Specimen Type: SERUM Comment: The listed sex of this patient may not be a typical indication for this test. Therefore, reference ranges or interpretive criteria listed may not be valid. Clinical correlation suggested. Ordering Provider: SANJEEV ROSS Report Released Date/Time: Sep 09, 2023 11:53 AM Reporting Lab: [facility] [address] [facility] [address] Performing Lab: [facility] [address] [facility] [address] B12 234 pg/mL 213-816 Oct 06, 2023 08:22 AM [facility] THYROXINE Specimen Type: SERUM Comment: The listed sex of this patient may not be a typical indication for this test. Therefore, reference ranges or interpretive criteria listed may not be valid. Clinical correlation suggested. Ordering Provider: SANJEEV ROSS Report Released Date/Time: Sep 09, 2023 11:53 AM Reporting Lab: [facility] [address] [facility] [address] Performing Lab: [facility] [address] [facility] [address] THYROXINE 6.07 ug/dL 4.5-12 Oct 06, 2023 08:22 AM [facility] VITAMIN D, 25-HYDROXY Specimen Type: SERUM Comment: The listed sex of this patient may not be a typical indication for this test. Therefore, reference ranges or interpretive criteria listed may not be valid. Clinical correlation suggested. Ordering Provider: SANJEEV ROSS Report Released Date/Time: Sep 09, 2023 11:53 AM Reporting Lab: [facility] [address] [facility] [address] Performing Lab: [facility] [address] [facility] [address] VITAMIN D, 25-HYDROXY 52.8 ng/mL 30-96 Oct 06, 2023 08:22 AM [facility] TSH W/ REFLEX FT4 (STL) Specimen Type: PLASMA No comment entered. Ordering Provider: SANJEEV ROSS Report Released Date/Time: Sep 09, 2023 11:53 AM Reporting Lab: [facility] [address] [facility] [address] Performing Lab: [facility] [address] [facility] [address] TSH 3.194 u[IU]/mL 0.47-5 Oct 06, 2023 08:22 AM [facility] PROST. SPECIFIC AG.(PB-STL) Specimen Type: SERUM Comment: The listed sex of this patient may not be a typical indication for this test. Therefore, reference ranges or interpretive criteria listed may not be valid. Clinical correlation suggested. Ordering Provider: SANJEEV ROSS Report Released Date/Time: Sep 09, 2023 11:53 AM Reporting Lab: [address] [address] Performing Lab: [facility] [address] [facility] [address] PROST. SPECIFIC AG.(PB-STL) 1.228 ng/mL 0-4 Oct 06, 2023 08:22 AM [facility] HGA1C Specimen Type: BLOOD No comment entered. Ordering Provider: SANJEEV ROSS Report Released Date/Time: Sep 09, 2023 11:53 AM Reporting Lab: [facility] [address] [facility] [address] Performing Lab: [facility] [address] [facility] [address] HGA1C 6.3 H 4.0-6.0 Oct 06, 2023 08:22 AM [facility] COMPREHENSIVE METABOLIC PANEL Specimen Type: PLASMA Comment: No hemolysis noted. Ordering Provider: SANJEEV ROSS Report Released Date/Time: Sep 09, 2023 11:53 AM Reporting Lab: [facility] [address] [facility] [address] Performing Lab: [facility] [address] [id number] CREATININE 0.95 mg/dL 0.7-1.3 UREA NITROGEN 12.5 mg/dL 9.0-25.0 GLUCOSE 117 mg/dL H 72-99 SODIUM 135 meq/L L 136-145 POTASSIUM 4.3 meq/L 3.5-5 CHLORIDE 103 meq/L 98-107 CARBON DIOXIDE 23 meq/L 22-31 CALCIUM 9.9 mg/dL 8.4-10.4 PROTEIN 7.1 g/dL 6-8.6 ALBUMIN 4.4 g/dL 3.4-5 TOTAL BILIRUBIN 1.0 mg/dL 0.2-1.2 ALKALINE PHOSPHATASE 59 U/L 40-150 AST/SGOT 12 U/L 5-34 ALT/SGPT 11 U/L 8-40 EGFR (CKD-EPI 2020) 83.5 >60 Oct 06, 2023 08:22 AM [facility] CBC Specimen Type: BLOOD No comment entered. Ordering Provider: SANJEEV ROSS Report Released Date/Time: Sep 09, 2023 11:53 AM Reporting Lab: [facility] [address] [facility] [address] Performing Lab: [facility] [address] [facility] [address] WBC 8.9 10*3/uL 3.6-11.2 RBC 4.74 10*6/uL 4.10-5.70 HGB 14.0 g/dL 13.1-16.8 HCT 41.8 38.2-48.4 MCV 88.2 fL 80.0-100.0 MCH 29.5 pg 27.0-34.0 MCHC 33.5 g/dL 33.0-36.0 PLT 244 10*3/uL 150-400 MPV 9.3 fL 7.5-11.2 RDW 13.0 11.8-15.1 LYMPHOCYTES, AUTO % 25 MONOCYTES, AUTO % 8 NEUTROPHILS, AUTO % 64 EOSINOPHILS, AUTO % 2 BASOPHILS, AUTO % 1 LYMPHOCYTES, ABSOLUTE 2.24 10*3/uL 0.77-4.50 MONOCYTES, ABSOLUTE 0.73 10*3/uL 0.19-0.80 NEUTROPHILS, ABSOLUTE 5.68 10*3/uL 2.10-8.00 EOSINOPHILS, ABSOLUTE 0.16 10*3/uL 0.00-0.60 BASOPHILS, ABSOLUTE 0.05 10*3/uL 0.00-0.20 Social History: Smoking Status (Most current) and Tobacco Use (All prior to encounter date) This section includes the most current, and the historical, smoking and tobacco- related health factors from the [place] facility where the Encounter took place. Current Smoking Status This section includes the most current smoking, or tobacco-related health factor, from the [place] facility where the Encounter took place. Date/Time Current Smoking Status Comment Florentino ity Oct 07, 2022 04:23 PM VA-TOBACCO FORMER USER [facility] Tobacco Use History This section includes a history of the smoking, or tobacco-related health factors, that were collected on or before the date of the Encounter. The data comes from the [place] facility where the Encounter took place. Date/Time Smoking Status/Tobacco Use Comment F accarey Oct 07, 2022 04:23 PM [place]-TOBACCO QUIT 15 YRS OR MORE [facility] Encounter Notes: All associated encounter notes This section contains the clinical notes associated to the Encounter. Date/Time Encounter Note(s) Provider Source Oct 07, 2023 03:05 PM AUDIOLOGY CRM BUSINESS ANALYST NOTE: LOCAL TITLE: HEARING AIDS STL STANDARD TITLE: AUDIOLOGY CRM BUSINESS ANALYST NOTE DATE OF NOTE: OCT 07, 2023@15:05 ENTRY DATE: OCT 07, 2023@15:05:20 AUTHOR: FAITH FISHER COSIGNER: URGENCY: STATUS: COMPLETED SUBJECT: audio HEARING AIDS ST Has ADDENDA HEARING AID DROP OFF dropped off the following [place] issued aid(s): 07/09/18 SONOVA PHONAK VIRTO B90 [place] R [id number] 07/09/18 SONOVA PHONAK VIRTO B90 CA L [id number] PHONE: [phone] REPORTED PROBLEM: Reprogrammed. Don't no instructions. REPAIR ACTIONS: General cleaning. Listening check OK. PROGRAMMING: Restored settings. Enabled datalogging. Confirmed fucntional VC in both aids. PLAN: [facility] notified of repair actions: [x]Hearing device(s) shipped to [facility] per request. Included fitting report to review device controls. Counseled over the phone as well. Address: [address] [place], [place] [address] [place] [address] [place] [address] Completed by Rosalind Beauchamp B.A., audiology student ministry pastor quality assurance intern. The information above has been reviewed by this provider. I am in agreement with the treatment plan as outlined. /primo/ Shira Angel, [facility] Staff Migration Specialist, Surgery Service Signed: 10/07/2023 15:42 10/09/2023 ADDENDUM STATUS: COMPLETED [id number] /primo/ Shira JOHNS Staff Migration Specialist, Surgery Service Signed: 10/09/2023 07:32 FAITH FISHER [facility]
--- OUTSIDE RECORDS SUMMARY | 2024-04-13 07:04 | XMS_ITS ---
Author Name [facility] Address [address] [place] [address] Care Team Providers Care Automotive Quality Manager Name Role Phone CAMMY GILMORE Primary Care [...] MEDIC ARE SUPPL EMENT Aug 23, 2013 [id number] [phone] CHAPINCITOJUSTIN ADORNO PATIENT ANTHEM [place] MEDICARE SUPPLEMEN JAMIN MEDIC ARE SUPPL EMENT Aug 23, 2013 [id number] [phone] CHAPINCITO, JUSTIN PATIENT ANTHEM BCBS [place] MEDICARE SUPPLEMEN JAMIN MEDIC ARE SUPPL EMENT Aug 23, 2013 [id number] [phone] CHAPINCITO, JUSTIN PATIENT ANTHEM [place] MEDICARE SUPPLEMEN JAMIN MEDIC ARE SUPPL EMENT Aug 23, 2013 [id number] [phone] CHAPINCITOJUSTIN ADORNO PATIENT ANTHEM BCBS [place] MEDICARE SUPPLEMEN JAMIN MEDIC ARE SUPPL EMENT Aug 23, 2013 [id number] [phone] CHAPINCITO, JUSTIN PATIENT BCBS [place] MEDICARE SUPPLEMEN JAMIN MEDIC ARE SUPPL EMENT Aug 23, 2013 [id number] [phone] CHAPINCITO, JUSTIN PATIENT [place] SUPPLE[place] JAMIN MEDIC ARE SUPPL EMENT Aug 23, 2013 [id number] [phone] CHAPINCITO, JUSTIN PATIENT MEDICARE (WNR) MEDICARE (M) PART B Nov 23, 2010 PART B [id number] CHAPINCITO, JUSTIN PATIENT MEDICARE (WNR) MEDICARE (M) PART B Nov 23, 2010 PART B [id number] CHAPINCITO, JUSTIN PATIENT MEDICARE (WNR) MEDICARE (M) PART B Nov 23, 2010 PART B [id number] CHAPINCITO, JUSTIN PATIENT MEDICARE (WNR) MEDICARE (M) PART A Nov 23, 2009 PART A [id number] CHAPINCITO, JUSTIN PATIENT MEDICARE (WNR) MEDICARE (M) PART A Nov 23, 2009 PART A [id number] CHAPINCITO, JUSTIN PATIENT MEDICARE (WNR) MEDICARE (M) PART A Nov 23, 2009 PART A [id number] CHAPINCITO, JUSTIN PATIENT Selected Encounter This section includes the information on record at [place] for the Encounter. Date/Time Encounter Type Encounter Description Reason Provider Source Sep 01, 2023 01:08 PM HEARING AID CHECK BOTH EARS AUDIOLOGY ICD-10-CM H90.3 Sensorineural hearing loss, bilateral SARA MAGALLON Sarah Encounter Template Text not used by [place] Assessments - Encounter Diagnoses This section includes the primary and secondary diagnoses documented for the Encounter. Date/Time Primary/Secondary Diagnosis Diagnosis Name Provider Source Sep 01, 2023 01:19 PM PRIMARY Sensorineural hearing loss, bilateral ALANNAH CAMARENA N [facility] Plan of Treatment: Future Appointments (+ 6 months) and Future Tests (+/- 45 days) The Plan of Treatment section includes future care activities for the patient from all [place] treatmentfacilities. This section includes future appointments and future orders which are active, pending or scheduled. Future Appointments This section includes appointments that were scheduled to occur 6 months from the date of the Encounter, up to a maximum of 20 appointments. The data comes from all [place] treatment facilities. Appointment Date/Time Appointment Type Appointme nt Facility Name Sep 09, 2023 11:00 AM AMBULATORY - MEDICINE [facility] Social History: Smoking Status (Most current) and [...] took place. Date/Time Current Smoking Status Comment Facil ity Oct 07, 2022 04:23 PM VA-TOBACCO FORMER USER [facility] Tobacco Use History This section includes a history of the smoking, or tobacco-related health factors, that were collected on or before the date of the Encounter. The data comes from the [place] facility where the Encounter took place. Date/Time Smoking Status/Tobacco Use Comment F acility Oct 07, 2022 04:23 PM VA-TOBACCO QUIT 15 YRS OR MORE [facility] Encounter Notes: All associated encounter notes This section contains the clinical notes associated to the Encounter. Date/Time Encounter Note(s) Provider Source Sep 01, 2023 01:08 PM AUDIOLOGY ASSOCIATE PARTNER NOTE: LOCAL TITLE: HEARING AIDS STL STANDARD TITLE: AUDIOLOGY ASSOCIATE PARTNER NOTE DATE OF NOTE: SEP 01, 2023@13:08 ENTRY DATE: SEP 01, 2023@13:08:17 AUTHOR: GILBERT CAMARENA COSIGNER: SARA MAGALLON URGENCY: STATUS: COMPLETED SUBJECT: audio HEARING AIDS STL Has ADDENDA HEARING AID DROP OFF dropped off/mailed the following [place] issued aid(s): 07/09/18 SONOVA PHONAK VIRTO B90 CA R [id number] 07/09/18 SONOVA PHONAK VIRTO B90 CA L [id number] PHONE: REPORTED PROBLEM: Need a check up. REPAIR ACTIONS: General cleaning. Listening check OK. Noted some cracking and separation near the faceplate on the right aid. Sealed cracks on right aid in office. Connected aids to software to check for firmware updates. No updates available. Datalogging indicated average of 4.7 hrs/day for the right aid and 5.1 hrs/day for the left aid. [place] notified of repair actions; LMOM. PLAN [ ] Device(s) sent in for repair; hearing aid will be mailed to [place] following repair direct from [facility]; ETA approximately 2-3 weeks. [ ] will picker operator devices at front desk team member [x] Hearing device(s) mail to [place] per [place] request. Address: [address] [place] [id number] /primo/ Shira MONIQUE Graduate Stain Applicator, Surgery Service Signed: 09/01/2023 13:19 /primo/ Shira JOHNS Staff Stain Applicator, Surgery Service Cosigned: 09/01/2023 13:21 09/01/2023 ADDENDUM STATUS: COMPLETED The information above has been reviewed by this provider. I am in agreement with the action plan as outlined. /primo/ Shira JOHNS Staff Stain Applicator, Surgery Service Signed: 09/01/2023 13:21 2023 ADDENDUM STATUS: COMPLETED [id number] /Shira Hollins Staff Stain Applicator, Surgery Service Signed: 2023 08:02 GILBERT CAMARENA [facility]
--- OUTSIDE RECORDS SUMMARY | 2024-04-13 07:04 | XMS_ITS | Encounter Summary ---
Author Name [facility] Organization [facility] [place] Address [address] [place] [address] Care Team Providers Care Aluminizer Name Role Phone CAMMY GILMORE Primary Care [...] MEDIC ARE SUPPL EMENT Aug 23, 2013 [id number] [phone] CHAPINCITOFOX ADORNO PATIENT ANTHEM BCBS [place] MEDICARE SUPPLEMEN JAMIN MEDIC ARE SUPPL EMENT Aug 23, 2013 [id number] [phone] CHAPINCITOFOX ADORNO PATIENT ANTHEM BCBS [place] MEDICARE SUPPLEMEN JAMIN MEDIC ARE SUPPL EMENT Aug 23, 2013 [id number] [phone] CHAPINCITO, FOX PATIENT ANTHEM BCBS [place] MEDICARE SUPPLEMEN JAMIN MEDIC ARE SUPPL EMENT Aug 23, [id number] [phone] CHAPINCITO, FOX PATIENT ANTHEM BCBS [place] MEDICARE SUPPLEMEN JAMIN MEDIC ARE SUPPL EMENT Aug 23, 2013 [id number] [phone] CHAPIN[place]O, FOX PATIENT BCBS [place] MEDICARE SUPPLEMEN JAMIN MEDIC ARE SUPPL EMENT Aug 23, 2013 [id number] [phone] [place], [place] PATIENT [place] SUPPLE[place] JAMIN MEDIC ARE SUPPL EMENT Aug 23, 2013 [id number] [phone] CHAPINCITO, FOX PATIENT MEDICARE (WNR) MEDICARE (M) PART B Nov 23, 2010 PART B [id number] CHAPINCITO, FOX PATIENT MEDICARE (WNR) MEDICARE (M) PART B Nov 23, 2010 PART B [id number] CHAPINCITO, FOX PATIENT MEDICARE (WNR) MEDICARE (M) PART B Nov 23, 2010 PART B [id number] CHAPINCITO, FOX PATIENT MEDICARE (WNR) MEDICARE (M) PART A Nov 23, 2009 PART A [id number] CHAPINCITO, FOX PATIENT MEDICARE (WNR) MEDICARE (M) PART A Nov 23, 2009 PART A [id number] CHAPINCITO, FOX PATIENT MEDICARE (WNR) MEDICARE (M) PART A Nov 23, 2009 PART A [id number] CHAPINCITO, FOX PATIENT Selected Encounter This section includes the information on record at [place] for the Encounter. Date/Time Encounter Type Encounter Description Reason Provider Source Sep 09, 2023 11:00 AM OFFICE O/P EST MOD 30 MIN PRIMARY CARE/MEDICINE ICD-10-CM Z00.00 Encntr for general adult medical exam w/o abnormal findings SANJEEV ROSS E Encounter Template Text not used by [place] Assessments - Encounter Diagnoses This section includes the primary and secondary diagnoses documented for the Encounter. Date/Time Primary/Secondary Diagnosis Diagnosis Name Provider Source Sep 10, 2023 06:10 AM PRIMARY Encntr for general adult medical exam w/o abnormal findings SANJEEV ROSS [facility] Sep 10, 2023 06:10 AM SECONDARY Athscl heart disease of [place] coronary artery w/o ang pctrs SANJEEV ROSS [facility] Sep 10, 2023 06:10 AM SECONDARY Chronic obstructive pulmonary disease, unspecified SANJEEV ROSS [facility] Sep 10, 2023 06:10 AM SECONDARY Chronic systolic (congestive) heart failure SANJEEV ROSS [facility] Sep 10, 2023 06:10 AM SECONDARY Essential (primary) hypertension SANJEEV ROSS [facility] Sep 10, 2023 06:10 AM SECONDARY Hypothyroidism, unspecified SANJEEV ROSS [facility] Sep 10, 2023 06:10 AM SECONDARY Major depressive disorder, recurrent, mild SANJEEV ROSS [facility] Sep 10, 2023 06:10 AM SECONDARY Mixed hyperlipidemia SANJEEV ROSS [facility] Sep 10, 2023 06:10 AM SECONDARY Obstructive sleep apnea (adult) (pediatric) SANJEEV ROSS [facility] Sep 10, 2023 06:10 AM SECONDARY Occlusion and stenosis of unspecified carotid artery SANJEEV ROSS [facility] Sep 10, 2023 06:10 AM SECONDARY Type 2 diabetes mellitus without complications SANJEEV ROSS [facility] Sep 10, 2023 06:10 AM SECONDARY Unspecified atrial fibrillation SANJEEV ROSS [facility] Lab Results: +/- 30 days of the encounter This section includes the Chemistry and Hematology Lab Results on record with [place] for the patient. Radiology Reports and Pathology Reports are provided separately, in subsequent sections. Lab Results This section contains the Chemistry/Hematology Results that were resulted 30 days before or 30 daysafter the date of the Encounter. Date/Time Source Result Type Result - Unit Interpretation Reference Range Comment Oct 06, 2023 08:22 AM [facility] B12 Specimen Type: SERUM Comment: The listed sex of this patient may not be a typical indication for this test. Therefore, reference ranges or interpretive criteria listed may not be valid. Clinical correlation suggested. Ordering Provider: SANJEEV ROSS Report Released Date/Time: Sep 09, 2023 11:53 AM Reporting Lab: [facility] [address] [facility] [address] Performing Lab: [facility] [address] [facility] [phone] B12 234 pg/mL 213-816 Oct 06, 2023 08:22 AM [facility] THYROXINE Specimen Type: SERUM Comment: The listed sex of this patient may not be a typical indication for this test. Therefore, reference ranges or interpretive criteria listed may not be valid. Clinical correlation suggested. Ordering Provider: SANJEEV ROSS Report Released Date/Time: Sep 09, 2023 11:53 AM Reporting Lab: [facility] [address] [facility] [address] Performing Lab: [address] [address] THYROXINE 6.07 ug/dL 4.5-12 Oct 06, 2023 08:22 AM [facility] VITAMIN D, 25-HYDROXY Specimen Type: SERUM Comment: The listed sex of this patient may not be a typical indication for this test. Therefore, reference ranges or interpretive criteria listed may not be valid. Clinical correlation suggested. Ordering Provider: SANJEEV ROSS Report Released Date/Time: Sep 09, 2023 11:53 AM Reporting Lab: [facility] [address] [facility] [address] Performing Lab: [facility] [address] [place] [phone] VITAMIN D, 25-HYDROXY 52.8 ng/mL 30-96 Oct 06, 2023 08:22 AM [facility] TSH W/ REFLEX FT4 (STL) Specimen Type: PLASMA No comment entered. Ordering Provider: SANJEEV ROSS Report Released Date/Time: Sep 09, 2023 11:53 AM Reporting Lab: [facility] [address] [facility] [address] Performing Lab: [address] [address] TSH 3.194 u[IU]/mL 0.47-5 Oct 06, 2023 08:22 AM [facility] PROST. SPECIFIC AG.(PB-STL) Specimen Type: SERUM Comment: The listed sex of this patient may not be a typical indication for this test. Therefore, reference ranges or interpretive criteria listed may not be valid. Clinical correlation suggested. Ordering Provider: SANJEEV ROSS Report Released Date/Time: Sep 09, 2023 11:53 AM Reporting Lab: [facility] [address] [place] [phone] Performing Lab: [address] [address] PROST. SPECIFIC AG.(PB-STL) 1.228 ng/mL 0-4 Oct 06, 2023 08:22 AM [facility] HGA1C Specimen Type: BLOOD No comment entered. Ordering Provider: SANJEEV ROSS Report Released Date/Time: Sep 09, 2023 11:53 AM Reporting Lab: [address] [address] Performing Lab: [address] [address] HGA1C 6.3 H 4.0-6.0 Oct 06, 2023 08:22 AM [facility] COMPREHENSIVE METABOLIC PANEL Specimen Type: PLASMA Comment: No hemolysis noted. Ordering Provider: SANJEEV ROSS Report Released Date/Time: Sep 09, 2023 11:53 AM Reporting Lab: [address] [address] Performing Lab: [address] [address] CREATININE 0.95 mg/dL 0.7-1.3 UREA NITROGEN 12.5 [...] 83.5 >60 Oct 06, 2023 08:22 AM [facility] CBC Specimen Type: BLOOD No comment entered. Ordering Provider: SANJEEV ROSS Report Released Date/Time: Sep 09, 2023 11:53 AM Reporting Lab: [facility] [address] [facility] [address] Performing Lab: [facility] [address] [facility] [address] WBC 8.9 10*3/uL 3.6-11.2 RBC 4.74 10*6/uL [...] 10*3/uL 0.00-0.60 BASOPHILS, ABSOLUTE 0.05 10*3/uL 0.00-0.20 Vital Signs: All taken on the encounter date This section contains inpatient and outpatient Vital Signs collected on the date of the Encounter. Date/Time Temperature Pulse Blood Pressure Respiratory Rate SP02 Pain Height Weight Body Mass Index Source Sep 09, 2023 11:19 AM 148/80 [facility] Sep 09, 2023 11:16 AM 97.8 72 155/76 20 96 0 70 214 31 [facility] Social History: Smoking Status (Most current) and Tobacco Use (All prior to encounter date) This section includes the most current, and the historical, smoking and tobacco- related health factors from the [place] facility where the Encounter took place. Current Smoking Status This section includes the most current smoking, or tobacco-related health factor, from the [place] facility where the Encounter took place. Date/Time Current Smoking Status Comment Florentino ity Sep 20, 2020 01:00 PM VA-TOBACCO FORMER USER [facility] Tobacco Use History This section includes a history of the smoking, or tobacco-related health factors, that were collected on or before the date of the Encounter. The data comes from the [place] facility where the Encounter took place. Date/Time Smoking Status/Tobacco Use Comment F acility Sep 20, 2020 01:00 PM VA-TOBACCO QUIT 15 YRS OR MORE [facility] July 15, 2018 03:15 PM VA-TOBACCO FORMER USER [facility] July 15, 2018 03:15 PM VA-TOBACCO QUIT 5 TO < 15 YRS [facility] Nov 20, 2017 01:01 PM VA-TOBACCO FORMER USER [facility] Nov 20, 2017 01:01 PM VA-TOBACCO QUIT 5 TO < 15 YRS [facility] Encounter Notes: All associated encounter notes This section contains the clinical notes associated to the Encounter. Date/Time Encounter Note(s) Provider Source Oct 07, 2023 09:07 AM PHYSICIAN LETTERS: LOCAL TITLE: TEST RESULT GENERAL LETTER ST STANDARD TITLE: PHYSICIAN LETTERS DATE OF NOTE: OCT 07, 2023@09:07 ENTRY DATE: OCT 07, 2023@09:07:43 AUTHOR: ERNESTO HARRINGTON EXP COSIGNER: URGENCY: STATUS: COMPLETED [facility] [address] [place] [address] OCT 07, 2023 FOX BECKHAM [address] [place] [address] Dear Fox Beckham, I would like to update you on your recent test results. GLUCOSE - Your blood sugar or glucose level result GLUCOSE GLUCOSE 117 H mg/dL 10/06/2023 08:22 These results are stable and reflective of prediabetes HEMOGLOBIN A1C - Gives us information about your diabetes (sugar or glucose) control over the past 3 months. Your target is to keep your A1C below 7 %. HGA1C 6.3 H % 10/06/2023 08:22 These results are stable and within prediabetic range. Recommend low carb diet and increasing activity as tolerated. CBC - A complete blood count (CBC) gives important information about the kinds and numbers of cells in the blood, especially red blood cells, white blood cells, and platelets. HGB 14.0 g/dL 10/06/2023 08:22 HEMATOCRIT 41.8 % (10/06/23 08:22) PLT 244 10*3/uL 10/06/2023 08:22 WHITE BLOOD COUNT 8.9 10*3/uL (10/06/23 08:22) These readings are within normal limits. B12 - Helps maintain healthy nerve cells, red blood cells, and is also needed to make DNA. B12 234 pg/mL 10/06/2023 08:22 These readings are within normal limits. CHEM 7 - This is important information about the current status of your kidneys, liver, and electrolyte and acid/base balance as well as of your blood sugar and blood proteins. SODIUM 135 L mEq/L 10/06/2023 08:22 POTASSIUM 4.3 mEq/L 10/06/2023 08:22 CHLORIDE 103 mEq/L 10/06/2023 08:22 UREA NITROGEN 12.5 mg/dL 10/06/2023 08:22 CREATININE 0.95 mg/dL 10/06/2023 08:22 CALCIUM 9.9 mg/dL 10/06/2023 08:22 CARBON DIOXIDE 23 mEq/L 10/06/2023 08:22 GLUCOSE 117 H mg/dL 10/06/2023 08:22 EGFR (CKD-EPI 2020) 83.5 10/06/2023 08:22 The results are similar to previous values and not a clinical concern. LIVER FUNCTION PANEL - These are tests for liver function: PROTEIN 7.1 g/dL 10/06/2023 08:22 ALBUMIN 4.4 g/dL 10/06/2023 08:22 TOTAL BILIRUBIN 1.0 mg/dL 10/06/2023 08:22 ALKALINE PHOSPHATASE 59 U/L 10/06/2023 08:22 AST/SGOT 12 U/L 10/06/2023 08:22 ALT/SGPT 11 U/L 10/06/2023 08:22 These readings are within normal limits. PSA - Prostate-specific antigen is a protein produced by cells of the prostate gland. The PSA test measures the level of PSA in the blood. PSA PROST. SPECIFIC AG.(PB-STL) 1.228 ng/mL 10/06/2023 08:22 These readings are within normal limits. TSH - Thyroid-stimulating hormone (also known as TSH or thyrotropin) is a peptide hormone synthesized and secreted by thyrotrope cells in the anterior pituitary gland, which regulates the endocrine function of the thyroid gland. TSH TSH 3.194 uIU/mL 10/06/2023 08:22 These readings are within normal limits. VITAMIN D - Helps promote the proper utilization of calcium and phosphorus, thereby producing proper bone maintenance. VITAMIN D, 25-HYDROXY 52.8 ng/mL 10/06/2023 08:22 These readings are within normal limits. PLAN Please continue your treatment as we discussed during your visit. If you have any questions please call your high risk case manager. I look forward to seeing you at your next clinic appointment. Thank you for choosing the [facility] for your healthcare. FUTURE APPOINTMENTS: 02/29/2024 14:00 [facility]-OPTOMETRY 2 06/09/2024 10:30 [facility]-ST CLR PACT 6 PCP Sincerely, ERNESTO HARRINGTON, ANP- NURSE PRACTITIONER FOX BECKHAM,ERNESTO ROACH [facility] Sep 09, 2023 11:53 AM PRIMARY CARE NOTE: LOCAL TITLE: PRIMARY CARE PROVIDER ESTABLISHED VISIT STL STANDARD TITLE: PRIMARY CARE NOTE DATE OF NOTE: SEP 09, 2023@11:53 ENTRY DATE: SEP 09, 2023@11:53:51 AUTHOR: SANJEEV ROSS EXP COSIGNER: URGENCY: STATUS: COMPLETED PRIMARY CARE PROVIDER ESTABLISHED VISIT STL Has ADDENDA ESTABLISHED PATIENT [id number]: NonVA Providers:Dr gerda Bucio CAPONIZER- PCP Dr Arroyo- Cardio [place] Providers: Optometry Audiology REASON FOR VISIT/CHIEF COMPLAINT: routine f/u of dm, htn,cad,hld, a fib, copd, depression, hypothyroid and alvaro ,CHF ,Carotid artery stenosis -pt gets all labs done w/private PCP and case finisher -pt is requesting med renewals and has no complaints today HPI:Denies CP, palpitations. SOB at baseline, modifies activity to help conserve energy. NO recent copd exac. monitors weight. had carotid US thru [facility]- noted less than 50% stenosis bilateral. Denies lightheadedness/diziness. denies increased thirst, urination nor hunger. Reports stable mood. denies SI/HI. Denies blood in urine nor stool. has easy bruising. He has labs to be done at [facility], will furnish us with results. WHAT IS YOUR GOAL FOR TODAY? med refills SOURCE(S) OF HISTORY: Patient PAST MEDICAL HISTORY: 1) Sleep apnea comment: treated with biPAP 2) Chronic obstructive lung disease 3) Arteriosclerotic heart disease comment: Emilee 05/24/18: 2V CABG (SVA-OM, SVA-PDA) and mitral valve repair comment: mitral aortic valve disease dilated aortic root 4) Hyperlipidemia 5) HT - Hypertension 6) Depression 7) Atrial fibrillation 8) Type 2 diabetes mellitus well controlled 9) Congestive heart failure comment: EF 35% 08/2021 10) Abdominal aortic aneurysm without rupture comment: 04/2017 4.3 CM AAA per screening u/s perfomed in [facility] comment: 11/2018 4.5 cm AAA per ultrasound performed by [facility] 11) Therapeutic drug effect 12) Anticoagulant effect 13) Aneurysm of thoracic aorta comment: 11/2018 4.9 cm ascending thoracic aortic aneurysm. Followed by 14) Hypothyroidism (SCT [id number]) 15) Asymptomatic carotid artery stenosis 16) Exposure to potentially hazardous substance ALLERGIES: Life Sustaining Treatment Orders ALLERGY REVIEW: Allergy list reviewed and remains current. RXAE - Active/Exp Opt Meds 1) ALBUTEROL 90MCG (CFC-F) 200D ORAL INHL ACTIVE INHALE 2 PUFFS BY ORAL INHALATION FOUR TIMES A DAY NEEDED FOR BREATHING. SHAKE WELL. RINSE MOUTHPIECE FREQUENTLY TO PREVENT CLOGGING. 2) AMLODIPINE BESYLATE 5MG TAB ACTIVE TAKE ONE TABLET BY MOUTH ONCE A DAY FOR HEART/BLOOD PRESSURE 3) ATORVASTATIN CALCIUM 80MG TAB ACTIVE TAKE ONE-HALF TABLET BY MOUTH EVERY EVENING FOR CHOLESTEROL. REPORT ANY UNEXPLAINED MUSCLE PAIN/WEAKNESS TO PROVIDER. 4) FLUTICAS 250/SALMETEROL 50 INHL DISK 60 ACTIVE INHALE 1 PUFF BY ORAL INHALATION TWICE A DAY FOR BREATHING (OPEN DISKUS; CLICK ONLY ONCE; MAY INHALE TWICE TO COMPLETE DOSE; CLOSE WHEN FINISHED) RINSE MOUTH AND SPIT AFTER EACH USE. 5) FLUTICASONE PROP 50MCG 120D NASAL INHL ACTIVE INSTILL 2 SPRAYS IN EACH NOSTRIL ONCE A DAY FOR ALLERGIES (MUST BE USED DIRECTED FOR MINIMUM OF 21 DAYS TO PROVIDE ADEQUATE BENEFITS) 6) FUROSEMIDE 20MG TAB ACTIVE TAKE ONE TABLET BY MOUTH EVERY MORNING FOR FLUID RETENTION 7) METOPROLOL TARTRATE 50MG TAB ACTIVE TAKE ONE-HALF TABLET BY MOUTH TWICE A DAY FOR HEART/BLOOD PRESSURE. TAKE WITH OR IMMEDIATELY FOLLOWING FOOD. 8) RIVAROXABAN 20MG TAB ACTIVE TAKE ONE TABLET BY MOUTH EVERY EVENING TO THIN BLOOD. TAKE WITH FOOD. 9) SACUBITRIL 97MG/VALSARTAN 103MG TAB ACTIVE TAKE ONE-HALF TABLET BY MOUTH TWICE A DAY FOR HEART 10) SERTRALINE HCL 100MG TAB ACTIVE TAKE ONE TABLET BY MOUTH EVERY MORNING FOR MOOD 11) TIOTROPIUM 2.5MCG/ACTUAT 60D ORAL INHL ACTIVE INHALE 2 INHALATIONS BY ORAL INHALATION ONCE A DAY (ADMINISTER AT SAME TIME EACH DAY) FOR BREATHING. 12) ARTIFICIAL SALIVA ORAL SPRAY TAKE 3-5 SPRAYS BY MOUTH EVERY TWO HOURS NEEDED TO RELIEVE DRY MOUTH AND THROAT. 13) LEVOTHYROXINE NA (SYNTHROID) 137MCG TAB TAKE ONE TABLET BY MOUTH EVERY MORNING BEFORE A MEAL FOR THYROID. TAKE 30 MINUTES BEFORE FOOD. TAKE SEPARATELY FROM ALL OTHER MEDICATIONS. 14) MONTELUKAST NA 10MG TAB TAKE ONE TABLET BY MOUTH EVERY EVENING N O N - V A M E D I C A T I O N S O N F I L E 1) ASPIRIN 81MG EC TAB ACTIVE 81MG BY MOUTH ONCE A DAY MEDICATION RECONCILIATION: I have reviewed the patient's medication list with the patient and/or his/her care-hand coper. Handwritten corrections, additions and/or deletions were made to the list. Corrected Outpatient Medication List was provided to the patient/caregiver. DATA REVIEW: CREATININE 0.83 mg/dL 11/25/2021 10:13 ALT/SGPT 13 U/L 11/25/2021 10:13 AST/SGOT 17 U/L 11/25/2021 10:13 EGFR (CKD-EPI 2020) 92.4 11/25/2021 10:13 HGB 14.6 g/dL 11/25/2021 10:13 HCT 44.1 % 11/25/2021 10:13 PLT 256 10*3/uL 11/25/2021 10:13 No LIPID PANEL EO data found No TSH (1YR) EO data found No VITAMIN D 25 HYDROXY EO data found SLT - Lab Tests Selected Collection DT Specimen Test Name Result Units Ref Range 10/14/2019 10:24 BLOOD HGA1C 6.6 H % 4.0 - 6.0 07/12/2018 10:38 BLOOD HGA1C 5.6 % 4.0 - 6.0 02/11/2018 09:38 BLOOD HGA1C 6.3 H % 4.0 - 6.0 No PSA EO data found HbA1c No data available for: HGA1C Result: Acceptable Follow-up Action: Data results reviewed with patient and/or caregiver. Review of Systems: General: Denies fever, chills, weight loss, weight gain ENT: Denies sore throat, nasal discharge, tinnitus, loss of hearing Eye: Denies changes in vision, double vision Cardiovascular: Denies chest pain, palpitations, dizziness Respiratory: Denies SOB, cough, hemoptysis Abd/GI: Denies nausea, vomiting, diarrhea, constipation, pain MSK/Ext: Denies joint pain, trauma, stiffness, edema /GERIATRIC NURSE ASSISTANT: Denies frequency, urgency, burning, odor, discharge Hemo/lymph: Denies easy bruising, fatigue, swollen nodes Endo: Denies excess thirst, hunger, urination Psych: Denies depression, anxiety, nightmares, insomnia Neuro: Denies headaches, tremors, seizures, head injury, neuropathy Skin: Denies laceration/abrasion, rash, itching, insect bites SMOKING STATUS:non VSD - Detailed Vitals Date Vital Measurement Qualifiers 09/09/2023 11:19 BP 148/80 09/09/2023 11:16 Temp F (C) 97.8 (36.6) Pulse 72 Respir 20 Ht in (cm) 70 (177.80) Wt lbs (kg)[BMI] 214 (97.07)[31*] Pain 0 POx (L/Min)(%) 96 Physical Exam: ENT: Pharynx clear, TM's clear EYE: PERRLA Cardiovascular: RRR, no murmurs, no carotid bruits, no edema Respiratory: Lungs CTAB Abd/GI: Abdomen soft, non-tender, non-distended, no masses or guarding Extremities: adequate ROM, no edema /GERIATRIC NURSE ASSISTANT: No CVA or S/P tenderness Hemo/lymph: no adenopathy, excessive bruising Endo: Thyroid without palpable nodules, no excess hair growth Psych: mood and affect appropriate Neuro: Alert and oriented, CN2-12 grossly intact Skin: Clear and intact ASSESSMENT/PLAN: # Annual (Male)-The patient was counseled regarding guidelines for colon and prostate screenings, labs, a mediterranean diet, regular sustained exercise for at least 30 minutes 5 times per week or equivalent, and minimal ETOH intake. Recommend annual optometry and/or ophthalmology and dental appointments. -labs per civilian PCP and Religious Educator # CAD s/p 2v cabg: cont asa, statin and bb. Followed by his pvt case finisher. #CHF- clinically compensated . cont furosemide and entresto # dm: at goal, prefers diet manageent, cont to check blood sugars as directed. will check A[facility]c at [facility]. furnish me with copy of labs # htn: slightly elevated today. Pt reports home readings 118/75. cont bblocker, amlodipine. f/u cards # hld: Lipid at goal , cont statin # a fib: rate controlled, cont BBlocker, cont Xarelto, denies any bleeding diatheses # copd: controlled, cont ICS/LABA/LAMA inhalers, cont BENJAMIN rescue inh prn # depression: denies si/hi, continue the sertraline # alvaro: stable, cont cpap # AAA without rupture, last imaging stable , followed [facility] # hypothyroidism- stable cont levothyroxine. # carotid artery stenosis- cont statin, DOac. repeat imaging in 1-2 yrs. RETURN TO CLINIC:9-12 mo Return to Clinic order placed SUMMARY STATEMENT: Plan of care has been discussed with including expected therapeutic benefits and potential side effects of prescribed medication and treatments. [place] verbalizes understanding and is in agreement with the plan of care. Patient was instructed to keep all scheduled appointments and contact safety instruction police officer for any additional problems. /primo/ SANJEEV ROSS NURSE PRACTITIONER Signed: 09/10/2023 06:14 09/17/2023 ADDENDUM STATUS: COMPLETED non [facility] Labs July 2023 normal lytes and LFTS creat 0.9 Bun 17 eGFR >60 A1c 6.0 TSH 2/040 /primo/ CAMMY GILMORE MD Signed: 09/17/2023 09:09 SANJEEV ROSS [facility]
--- OUTSIDE RECORDS SUMMARY | 2024-04-13 07:05 | XMS_ITS | Continuity of Care Document ---
Author Name [facility] Organization [facility] Care Team Providers Care Specimen Processor Name Role Phone [facility] Unavailable Unavailable Problems Combined list of problems from Department of Defense and Veterans Affairs facilities. It does not include entries that were removed or entered in error. Problem Status Onset Date Problem Type Date of Resolution Comments Source Abdominal aortic aneurysm without rupture Active Condition Jan 20, 2018 Entered By: JOÃO XIE Comment: 04/2017 4.3 CM AAA per screening u/s perfomed in [place] [facility] 2018 Entered By: JOÃO XIE Comment: 11/2018 4.5 cm AAA per ultrasound performed by [facility] (Dr. Micheal Viveros) [facility] Aneurysm of thoracic aorta Active Condition Feb 20, 2019 Entered By: JOÃO XIE Comment: 11/2018 4.9 cm ascending thoracic aortic aneurysm. Followed by Dr. Micheal Viveros,( vascular surgery-[facility]). [facility] Anticoagulant effect Active Condition [facility] Arteriosclerotic heart disease Active Condition Dec 26, 2016 Entered By: DAHIANA MATHIAS Comment: mitral aortic valve disease dilated aortic rootMay 2018 Entered By: JOÃO XIE Comment: Emilee 05/24/18: 2V CABG (SVA-OM, SVA-PDA) and mitral valve repair [facility] Asymptomatic carotid artery stenosis Active Condition [facility] Atrial fibrillation Active Condition [facility] Chronic obstructive lung disease Active Condition [facility] Congestive heart failure Active Condition Nov 25, 2021 Entered By: LIANA GILMORE Comment: EF 35% 08/2021 [facility] Depression Active Condition [facility] Exposure to potentially hazardous substance Active Condition [facility] HT - Hypertension Active Condition [facility] Hyperlipidemia Active Condition [facility] Hypothyroidism (SCT 84810419) Active Condition [facility] Sleep apnea Active Condition Dec 26, 2016 Entered By: DAHIANA MATHIAS Comment: treated with [facility] Therapeutic drug effect Active Condition [facility] Type 2 diabetes mellitus well controlled Active Condition [facility] Diagnosis: ICD-10-CM H90.3 Sensorineural hearing loss, bilateral Active Diagnosis [facility] Diagnosis: ICD-10-CM Z00.00 Encntr for general adult medical exam w/o abnormal findings Active Diagnosis [facility] Diagnosis: ICD-10-CM H34.231 Retinal artery branch occlusion, right eye Active Diagnosis [facility] Diagnosis: ICD-10-CM Z51.81 Encounter for therapeutic drug level monitoring Active Diagnosis [facility] Medications Combined list of outpatient medications from Department of Defense and [facility] Affairs facilities.Medications provided include 1) outpatient medications [...] CLOGGING . RESPIR ATORY (INHAL ATION) 10/10/2023 [id number] 4 GILMORE,A RMIDA A 2022 4 [facility] AMLODIPINE BESYLATE 5MG TAB TAKE ONE TABLET BY MOUTH ONCE A DAY FOR HEART/BL OOD PRESSURE ORAL ACTIVE 09/09/2024 [id number] 5 ANAY ROSS SSA S 2023 90 [facility] AMLODIPINE BESYLATE 5MG TAB TAKE ONE TABLET BY MOUTH ONCE A DAY FOR HEART/BL OOD PRESSURE ORAL DISCONT INUED 10/10/2023 [id number] 4 GILMORE,A RMIDA A 2022 90 [facility] ASPIRIN 81MG TAB,EC TAKE ONE TABLET BY MOUTH ONCE A DAY ORAL ACTIVE DAYANNA MALIK S 2018 [facility] ATORVASTATI N CA 80MG TAB TAKE ONE-HALF TABLET BY MOUTH EVERY EVENING FOR CHOLESTE ROL. REPORT ANY UNEXPLAI ROBYN MUSCLE PAIN/WEA KNESS TO PROVIDER . ORAL ACTIVE 09/09/2024 [id number] 5 CODYANAY SSA S 2023 45 [facility] ATORVASTATI N CA 80MG TAB TAKE ONE-HALF TABLET BY MOUTH EVERY EVENING FOR CHOLESTE ROL. REPORT ANY UNEXPLAI ROBYN MUSCLE PAIN/WEA KNESS TO PROVIDER . ORAL DISCONT INUED 10/10/2023 [id number] 4 GILMORE,A RMIDA A 2022 45 [facility] FLUTICASONE 250MCG/SALM ETEROL 50MCG INHL,ORAL,D ISKUS,60 INHALE 1 PUFF BY ORAL INHALATI ON TWICE A DAY FOR BREATHIN G (OPEN DISKUS; CLICK ONLY ONCE; MAY INHALE TWICE TO COMPLETE DOSE; CLOSE WHEN FINISHED ) RINSE MOUTH AND SPIT AFTER EACH USE. RESPIR ATORY (INHAL ATION) SUSPEND ED 11/02/2024 [id number] 5 GILMORE,A RMIDA A 2023 3 [facility] FLUTICASONE 250MCG/SALM ETEROL 50MCG INHL,ORAL,D ISKUS,60 INHALE 1 PUFF BY ORAL INHALATI ON TWICE A DAY FOR BREATHIN G (OPEN DISKUS; CLICK ONLY ONCE; MAY INHALE TWICE TO COMPLETE DOSE; CLOSE WHEN FINISHED ) RINSE MOUTH AND SPIT AFTER EACH USE. RESPIR ATORY (INHAL ATION) DISCONT INUED 12/09/2023 [id number] 4 CODYANAY SSA S 2023 3 [facility] FLUTICASONE 250MCG/SALM ETEROL 50MCG INHL,ORAL,D ISKUS,60 INHALE 1 PUFF BY ORAL INHALATI ON TWICE A DAY FOR BREATHIN G (OPEN DISKUS; CLICK ONLY ONCE; MAY INHALE TWICE TO COMPLETE DOSE; CLOSE WHEN FINISHED ) RINSE MOUTH AND SPIT AFTER EACH USE. RESPIR ATORY (INHAL ATION) DISCONT INUED 12/08/2023 [id number] 4 ANAY ROSS SSA S 2023 3 [facility] FLUTICASONE 250MCG/SALM ETEROL 50MCG INHL,ORAL,D ISKUS,60 INHALE 1 PUFF BY ORAL INHALATI ON TWICE A DAY FOR BREATHIN G (OPEN DISKUS; CLICK ONLY ONCE; MAY INHALE TWICE TO COMPLETE DOSE; CLOSE WHEN FINISHED ) RINSE MOUTH AND SPIT AFTER EACH USE. RESPIR ATORY (INHAL ATION) DISCONT INUED 11/05/2023 [id number] 4 GILMORE,A RMIDA A 2023 3 [facility] FLUTICASONE 250MCG/SALM ETEROL 50MCG INHL,ORAL,D ISKUS,60 INHALE 1 PUFF BY ORAL INHALATI ON TWICE A DAY FOR BREATHIN G (OPEN DISKUS; CLICK ONLY ONCE; MAY INHALE TWICE TO COMPLETE DOSE; CLOSE WHEN FINISHED ) RINSE MOUTH AND SPIT AFTER EACH USE. RESPIR ATORY (INHAL ATION) DISCONT INUED 07/16/2023 [id number] 4 GILMORE,A RMIDA A 2022 3 [facility] FLUTICASONE PROPIONATE 50MCG/SPRAY SOLN,NASAL, 16GM INSTILL 2 SPRAYS IN EACH NOSTRIL ONCE A DAY FOR ALLERGIE S (MUST BE USED DIRECTED FOR MINIMUM OF 21 DAYS TO PROVIDE ADEQUATE BENEFITS ) NASAL ACTIVE 07/29/2024 [id number] 5 ME COURTNEY TTISA 2023 3 [facility] FLUTICASONE PROPIONATE 50MCG/SPRAY SOLN,NASAL, 16GM INSTILL 2 SPRAYS IN EACH NOSTRIL ONCE A DAY FOR ALLERGIE S (MUST BE USED DIRECTED FOR MINIMUM OF 21 DAYS TO PROVIDE ADEQUATE BENEFITS ) NASAL DISCONT INUED 07/16/2023 [id number] 4 GILMORE,A RMIDA A 2022 3 [facility] FUROSEMIDE 20MG TAB TAKE ONE TABLET BY MOUTH EVERY MORNING FOR FLUID RETENTIO N ORAL ACTIVE 09/09/2024 [id number] 4 ANAY ROSS SSA S 2023 90 [facility] FUROSEMIDE 20MG TAB TAKE ONE TABLET BY MOUTH EVERY MORNING FOR FLUID RETENTIO N ORAL DISCONT INUED 10/10/2023 [id number] 4 DEIRDREA RMIDA A 2022 90 [facility] LEVOTHYROXI NE NA 137MCG TAB (SYNTHROID) TAKE ONE TABLET BY MOUTH EVERY MORNING BEFORE A MEAL FOR THYROID. TAKE 30 MINUTES BEFORE FOOD. TAKE SEPARATE LY FROM ALL OTHER MEDICATI ONS. ORAL ACTIVE 09/09/2024 [id number] 5 CODYANAY SSA S 2023 90 [facility] LEVOTHYROXI NE NA 137MCG TAB (SYNTHROID) TAKE ONE TABLET BY MOUTH EVERY MORNING BEFORE A MEAL FOR THYROID. TAKE 30 MINUTES BEFORE FOOD. TAKE SEPARATE LY FROM ALL OTHER MEDICATI ONS. ORAL DISCONT INUED 07/16/2023 [id number] 4 DEIRDREA RMIDA A 2022 90 [facility] METOPROLOL TARTRATE 50MG TAB TAKE ONE-HALF TABLET BY MOUTH TWICE A DAY FOR HEART/BL OOD PRESSURE . TAKE WITH OR IMMEDIAT SANDEE FOLLOWIN G FOOD. ORAL ACTIVE 09/09/2024 [id number] 5 ANAY ROSS SSA S 2023 90 [facility] METOPROLOL TARTRATE 50MG TAB TAKE ONE-HALF TABLET BY MOUTH TWICE A DAY FOR HEART/BL OOD PRESSURE . TAKE WITH OR IMMEDIAT SANDEE FOLLOWIN G FOOD. ORAL DISCONT INUED 11/25/2023 [id number] 4 DEIRDREA RMIDA A 2022 90 [facility] MONTELUKAST NA 10MG TAB TAKE ONE TABLET BY MOUTH EVERY EVENING ORAL SUSPEND ED 09/09/2024 [id number] 5 CODYSAGEI SSA S 2023 90 [facility] MONTELUKAST NA 10MG TAB TAKE ONE TABLET BY MOUTH EVERY EVENING ORAL DISCONT INUED 07/16/2023 [id number] 4 GILMORE,A RMIDA A 2022 90 [facility] RIVAROXABAN 20MG TAB TAKE ONE TABLET BY MOUTH EVERY EVENING TO THIN BLOOD. TAKE WITH FOOD. ORAL ACTIVE 09/09/2024 [id number] 4 CODYSAGEI SSA S 2023 90 [facility] RIVAROXABAN 20MG TAB TAKE ONE TABLET BY MOUTH EVERY EVENING TO THIN BLOOD. TAKE WITH FOOD. ORAL DISCONT INUED 11/25/2023 [id number] 4 GILMORE,A RMIDA A 2022 90 [facility] SACUBITRIL 97MG/VALSAR LEIGH 103MG TAB TAKE ONE-HALF TABLET BY MOUTH TWICE A DAY FOR HEART ORAL ACTIVE 09/09/2024 [id number] 4 CODY,ANAY SSA S 2023 90 [facility] SACUBITRIL 97MG/VALSAR LEIGH 103MG TAB TAKE ONE-HALF TABLET BY MOUTH TWICE A DAY FOR HEART ORAL DISCONT INUED 10/10/2023 [id number] 4 GILMORE,A RMIDA A 2022 90 [facility] SALIVA,ALMAZ FICIAL SPRAY,ORAL TAKE 3-5 SPRAYS BY MOUTH EVERY TWO HOURS NEEDED TO RELIEVE DRY MOUTH AND THROAT. ORAL ACTIVE 09/09/2024 [id number] 5 CODYSAGEI SSA S 2023 236 [facility] SALIVA,ALMAZ FICIAL SPRAY,ORAL TAKE 3-5 SPRAYS BY MOUTH EVERY TWO HOURS NEEDED TO RELIEVE DRY MOUTH AND THROAT. ORAL DISCONT INUED 07/16/2023 [id number] 4 GILMORE,A RMIDA A 2022 236 [facility] SERTRALINE HCL 100MG TAB TAKE ONE TABLET BY MOUTH EVERY MORNING FOR MOOD ORAL ACTIVE 09/09/2024 [id number] 5 ANAY ROSS SSA S 2023 90 [facility] SERTRALINE HCL 100MG TAB TAKE ONE TABLET BY MOUTH EVERY MORNING FOR MOOD ORAL DISCONT INUED 11/25/2023 [id number] 4 GILMORE,A RMIDA A 2022 90 [facility] TIOTROPIUM 2.5MCG/ACTU AT INHL,ORAL,6 0D,4GM INHALE 2 INHALATI ONS BY ORAL INHALATI ON ONCE A DAY (ADMINIS TER AT SAME TIME EACH DAY) FOR BREATHIN G. RESPIR ATORY (INHAL ATION) ACTIVE 07/29/2024 [id number] 4 ME COURTNEY TTISA 2023 3 [facility] TIOTROPIUM 2.5MCG/ACTU AT INHL,ORAL,6 0D,4GM INHALE 2 INHALATI ONS BY ORAL INHALATI ON ONCE A DAY (ADMINIS TER AT SAME TIME EACH DAY) FOR BREATHIN G. RESPIR ATORY (INHAL ATION) DISCONT INUED 07/16/2023 [id number] 4 DEIRDRE,A RMIDA A 2022 3 [facility] Immunizations Combined list of available immunizations from the Department of Defense and Veterans Affairs facilities. Immunization Series Date Given Administered By Site Reaction Lot Number CVX Code Drug Merchant Police Status Comments Source COVID-19 ([facility]), MRNA, LNP-S, PF, NICK-SUCROSE, 30 MCG/0.3 ML (AGES 12+ YEARS) 3 2022 309 complet ed [facility] INFLUENZA, ADJUVANTED, QUADRIVALENT, PF 1 2022 205 [facility], RECOMBINANT, PROTEIN SUBUNIT RSVPREF, ADJUVANT RECONSTITUTED , 0.5 ML, PF [address] [facility] COVID-19 ([facility]), MRNA, LNP-S, BIVALENT, PF, 30 MCG/0.3 ML DOSE 2 2021 300 complet ed [facility] INFLUENZA, HIGH-DOSE, QUADRIVALENT 4 2021 197 complet ed [facility] COVID-19 ([facility]), MRNA, LNP-S, PF, 30 MCG/0.3 ML DOSE 1 2020 208 complet ed [facility] INFLUENZA, HIGH-DOSE, QUADRIVALENT 3 2020 197 complet ed [facility] COVID-19 ([facility]), MRNA, LNP-S, PF, 30 MCG/0.3 ML DOSE 2 2020 208 complet ed PFR; [id number]; 1 [facility] COVID-19 ([facility]), MRNA, LNP-S, PF, 30 MCG/0.3 ML DOSE 1 2020 208 complet ed PFR; [id number]; 1 [facility] INFLUENZA, RECOMBINANT, QUADRIVALENT, INJECTABLE, PRESERVATIVE FREE 2 2019 185 complet ed [facility] INFLUENZA, UNSPECIFIED FORMULATION 2018 88 complet ed per [facility] N PNEUMOCOCCAL POLYSACCHARID E PPV23 2017 33 complet ed [facility] INFLUENZA, UNSPECIFIED FORMULATION 2017 88 complet ed per [facility] ZOSTER RECOMBINANT 2 2017 187 complet ed [facility] ZOSTER RECOMBINANT 1 2017 187 complet ed [facility] INFLUENZA, INJECTABLE, QUADRIVALENT, PRESERVATIVE FREE 2016 150 complet ed [facility] PNEUMOCOCCAL CONJUGATE PCV 13 2016 133 complet ed [facility] INFLUENZA, HIGH DOSE SEASONAL 1 2014 135 complet ed [facility] Results Combined list of recent chemistry, hematology and other laboratory results from Department of Defense and Veterans Affairs, ranging from 15 months to all on record, depending upon the facility. Order Name Results Value Reference Range Date Interpretation Specimen Comments Source B12 COBALAMIN (VITAMIN B12) [MASS/VOLUM E] IN SERUM OR PLASMA 234 pg/mL 213 - 816 10/05 Specimen Type: SERUM Comment: The listed sex of this patient may not be a typical indication for this test. Therefore, reference ranges or interpretive criteria listed may not be valid. Clinical correlation suggested. Ordering Provider: SANJEEV ROSS Report Released Date/Time: Sep 09, 2023 11:53 AM Reporting Lab: [facility] [address] [facility] [phone] Performing Lab: [facility] [address] [facility] [phone] [place] [address] THYROXINE THYROXINE (T4) [MASS/VOLUM E] IN SERUM OR PLASMA 6.07 ug/dL 4.5 - 12 10/05 Specimen Type: SERUM Comment: The listed sex of this patient may not be a typical indication for this test. Therefore, reference ranges or interpretive criteria listed may not be valid. Clinical correlation suggested. Ordering Provider: SANJEEV ROSS Report Released Date/Time: Sep 09, 2023 11:53 AM Reporting Lab: [facility] [address] [facility] [phone] Performing Lab: [facility] [address] [facility] [phone] [facility] VITAMIN D, 25-HYDROXY 25-HYDROXYV ITAMIN D3 [MASS/VOLUM [...] Sep 09, 2023 11:53 AM Reporting Lab: [facility] [address] [facility] [phone] Performing Lab: [facility] [address] [facility] [phone] [facility] TSH W/ REFLEX FT4 (STL) THYROTROPIN [UNITS/VOLU ME] IN SERUM OR PLASMA 3.194 u[IU]/ mL 0.47 - 5 10/05 Specimen Type: PLASMA No comment entered. Ordering Provider: SANJEEV ROSS Report Released Date/Time: Sep 09, 2023 11:53 AM Reporting Lab: [facility] [address] [place] [phone] Performing Lab: [address] PROST. SPECIFIC AG.(PB-STL ) PROSTATE SPECIFIC AG [...] Sep 09, 2023 11:53 AM Reporting Lab: [facility] [address] [place] [phone] Performing Lab: [address] HGA1C HEMOGLOBIN A1C/HEMOGLO BIN.TOTAL IN BLOOD 6.3 4.0 - 6.0 10/05 H Specimen Type: BLOOD No comment entered. Ordering Provider: SANJEEV ROSS Report Released Date/Time: Sep 09, 2023 11:53 AM Reporting Lab: [facility] [address] [place] [phone] Performing Lab: [address] [phone] COMPREHENS WATSON METABOLIC PANEL CREATININE [MASS/VOLUM E] IN SERUM OR PLASMA 0.95 mg/dL 0.7 - 1.3 10/05 Specimen Type: PLASMA Comment: No hemolysis noted. Ordering Provider: SANJEEV ROSS Report Released Date/Time: Sep 09, 2023 11:53 AM Reporting Lab: [facility] [address] [facility] [phone] Performing Lab: [facility] [address] [place] [phone] [facility] COMPREHENS [place] METABOLIC PANEL UREA NITROGEN [MASS/VOLUM E] IN SERUM OR PLASMA 12.5 mg/dL 9.0 - 25.0 10/05 Specimen Type: PLASMA Comment: No hemolysis noted. Ordering Provider: SANJEEV ROSS Report Released Date/Time: Sep 09, 2023 11:53 AM Reporting Lab: [facility] [address] [place] [phone] Performing Lab: [address] [phone] [facility] COMPREHENS [place] METABOLIC PANEL GLUCOSE [MASS/VOLUM E] IN SERUM OR PLASMA 117 mg/dL 72 - 99 10/05 H Specimen Type: PLASMA Comment: No hemolysis noted. Ordering Provider: SANJEEV ROSS Report Released Date/Time: Sep 09, 2023 11:53 AM Reporting Lab: [facility] [address] [place] [phone] Performing Lab: [address] [phone] [facility] COMPREHENS [place] METABOLIC PANEL SODIUM [MOLES/VOLU ME] IN SERUM OR PLASMA 135 meq/L 136 - 145 10/05 L Specimen Type: PLASMA Comment: No hemolysis noted. Ordering Provider: SANJEEV ROSS Report Released Date/Time: Sep 09, 2023 11:53 AM Reporting Lab: [facility] [address] [place] [phone] Performing Lab: [facility] [address] [place] [phone] [facility] COMPREHENS [place] METABOLIC PANEL POTASSIUM [MOLES/VOLU ME] IN SERUM OR PLASMA 4.3 meq/L 3.5 - 5 10/05 Specimen Type: PLASMA Comment: No hemolysis noted. Ordering Provider: SANJEEV ROSS Report Released Date/Time: Sep 09, 2023 11:53 AM Reporting Lab: [facility] [address] [place] [phone] Performing Lab: [facility] [address] [place] [phone] [facility] COMPREHENS [place]AT[place] METABOLIC PANEL CHLORIDE [MOLES/VOLU ME] IN SERUM OR PLASMA 103 meq/L 98 - 107 10/05 Specimen Type: PLASMA Comment: No hemolysis noted. Ordering Provider: SANJEEV ROSS Report Released Date/Time: Sep 09, 2023 11:53 AM Reporting Lab: [address] [phone] Performing Lab: [facility] [address] [place] [phone] [facility] COMPREHENS WATSON METABOLIC PANEL CARBON DIOXIDE, TOTAL [MOLES/VOLU ME] IN SERUM OR PLASMA 23 meq/L 22 - 31 10/05 Specimen Type: PLASMA Comment: No hemolysis noted. Ordering Provider: SANJEEV ROSS Report Released Date/Time: Sep 09, 2023 11:53 AM Reporting Lab: [facility] [address] [place] [phone] Performing Lab: [address] [phone] [facility] COMPREHENS [place] METABOLIC PANEL CALCIUM [MASS/VOLUM E] IN SERUM OR PLASMA 9.9 mg/dL 8.4 - 10.4 10/05 Specimen Type: PLASMA Comment: No hemolysis noted. Ordering Provider: SANJEEV ROSS Report Released Date/Time: Sep 09, 2023 11:53 AM Reporting Lab: [facility] [address] [place] [phone] Performing Lab: [address] [phone] [facility] COMPREHENS [place] METABOLIC PANEL PROTEIN [MASS/VOLUM E] IN SERUM OR PLASMA 7.1 g/dL 6 - 8.6 10/05 Specimen Type: PLASMA Comment: No hemolysis noted. Ordering Provider: SANJEEV ROSS Report Released Date/Time: Sep 09, 2023 11:53 AM Reporting Lab: [facility] [address] [facility] [phone] Performing Lab: [facility] [address] [place] [phone] [facility] COMPREHENS WATSON METABOLIC PANEL ALBUMIN [MASS/VOLUM E] IN SERUM OR PLASMA 4.4 g/dL 3.4 - 5 10/05 Specimen Type: PLASMA Comment: No hemolysis noted. Ordering Provider: SANJEEV ROSS Report Released Date/Time: Sep 09, 2023 11:53 AM Reporting Lab: [facility] [address] [place] [phone] Performing Lab: [facility] [address] [place] [phone] [place] [address] COMPREHENS WATSON METABOLIC PANEL BILIRUBIN.T OTAL [MASS/VOLUM E] IN SERUM OR PLASMA 1.0 mg/dL 0.2 - 1.2 10/05 Specimen Type: PLASMA Comment: No hemolysis noted. Ordering Provider: SANJEEV ROSS Report Released Date/Time: Sep 09, 2023 11:53 AM Reporting Lab: [facility] [address] [place] [phone] Performing Lab: [facility] [address] [place] [phone] [facility] COMPREHENS WATSON METABOLIC PANEL ALKALINE PHOSPHATASE [ENZYMATIC ACTIVITY/VO LUME] IN SERUM OR PLASMA 59 U/L 40 - 150 10/05 Specimen Type: PLASMA Comment: No hemolysis noted. Ordering Provider: SANJEEV ROSS Report Released Date/Time: Sep 09, 2023 11:53 AM Reporting Lab: [facility] [address] [place] [phone] Performing Lab: [facility] [address] [place] [phone] [facility] COMPREHENS WATSON METABOLIC PANEL ASPARTATE AMINOTRANSF ERASE [ENZYMATIC ACTIVITY/VO LUME] IN SERUM OR PLASMA 12 U/L 5 - 34 10/05 Specimen Type: PLASMA Comment: No hemolysis noted. Ordering Provider: SANJEEV ROSS Report Released Date/Time: Sep 09, 2023 11:53 AM Reporting Lab: [place] [address] [facility] [phone] Performing Lab: [address] [phone] COMPREHENS [place]ATSON METABOLIC PANEL ALANINE AMINOTRANSF ERASE [ENZYMATIC ACTIVITY/VO LUME] IN SERUM OR PLASMA 11 U/L 8 - 40 10/05 Specimen Type: PLASMA Comment: No hemolysis noted. Ordering Provider: SANJEEV ROSS Report Released Date/Time: Sep 09, 2023 11:53 AM Reporting Lab: [address] [phone] Performing Lab: [address] [phone] [place] [address] COMPREHENS [place]ATSON METABOLIC PANEL GLOMERULAR FILTRATION RATE/1.73 SQ M.PREDICTED [VOLUME RATE/AREA] IN SERUM, PLASMA OR BLOOD BY CREATININE- BASED FORMULA (CKD-EPI 2020) 83.5 60 10/05 Specimen Type: PLASMA Comment: No hemolysis noted. Ordering Provider: SANJEEV ROSS Report Released Date/Time: Sep 09, 2023 11:53 AM Reporting Lab: [address] [phone] Performing Lab: [address] [phone] CBC LEUKOCYTES [#/VOLUME] IN BLOOD BY AUTOMATED COUNT 8.9 10*3/u L 3.6 - 11.2 10/05 Specimen Type: BLOOD No comment entered. Ordering Provider: SANJEEV ROSS Report Released Date/Time: Sep 09, 2023 11:53 AM Reporting Lab: [address] [address] Performing Lab: [facility] [address] [facility] [address] [facility] CBC ERYTHROCYTE S [#/VOLUME] IN BLOOD BY AUTOMATED COUNT 4.74 10*6/u L 4.10 - 5.70 10/05 Specimen Type: BLOOD No comment entered. Ordering Provider: SANJEEV ROSS Report Released Date/Time: Sep 09, 2023 11:53 AM Reporting Lab: [address] [address] Performing Lab: [address] [address] [facility] CBC HEMOGLOBIN [MASS/VOLUM E] IN BLOOD 14.0 g/dL 13.1 - 16.8 10/05 Specimen Type: BLOOD No comment entered. Ordering Provider: SANJEEV ROSS Report Released Date/Time: Sep 09, 2023 11:53 AM Reporting Lab: [address] [address] Performing Lab: [address] [address] [facility] CBC HEMATOCRIT [VOLUME FRACTION] OF BLOOD 41.8 38.2 - 48.4 10/05 Specimen Type: BLOOD No comment entered. Ordering Provider: SANJEEV ROSS Report Released Date/Time: Sep 09, 2023 11:53 AM Reporting Lab: [address] [address] Performing Lab: [address] [address] [facility] CBC MCV [ENTITIC VOLUME] BY AUTOMATED COUNT 88.2 fL 80.0 - 100.0 10/05 Specimen Type: BLOOD No comment entered. Ordering Provider: SANJEEV ROSS Report Released Date/Time: Sep 09, 2023 11:53 AM Reporting Lab: [address] [address] Performing Lab: [place] [address] [place] [address] [facility] CBC MCH [ENTITIC MASS] BY AUTOMATED COUNT 29.5 pg 27.0 - 34.0 10/05 Specimen Type: BLOOD No comment entered. Ordering Provider: SANJEEV ROSS Report Released Date/Time: Sep 09, 2023 11:53 AM Reporting Lab: [address] [address] Performing Lab: [address] [phone] [place] [address] CBC MCHC [MASS/VOLUM E] BY AUTOMATED COUNT 33.5 g/dL 33.0 - 36.0 10/05 Specimen Type: BLOOD No comment entered. Ordering Provider: SANJEEV ROSS Report Released Date/Time: Sep 09, 2023 11:53 AM Reporting Lab: [address] [address] Performing Lab: [address] [address] [facility] CBC PLATELETS [#/VOLUME] IN BLOOD BY AUTOMATED COUNT 244 10*3/u L 150 - 400 10/05 Specimen Type: BLOOD No comment entered. Ordering Provider: SANJEEV ROSS Report Released Date/Time: Sep 09, 2023 11:53 AM Reporting Lab: [address] [address] Performing Lab: [address] [address] [facility] CBC PLATELET MEAN VOLUME [ENTITIC VOLUME] IN BLOOD BY AUTOMATED COUNT 9.3 fL 7.5 - 11.2 10/05 Specimen Type: BLOOD No comment entered. Ordering Provider: SANJEEV ROSS Report Released Date/Time: Sep 09, 2023 11:53 AM Reporting Lab: [address] [address] Performing Lab: [address] [place] [address] [facility] CBC ERYTHROCYTE DISTRIBUTIO N WIDTH [RATIO] BY AUTOMATED COUNT 13.0 11.8 - 15.1 10/05 Specimen Type: BLOOD No comment entered. Ordering Provider: SANJEEV ROSS Report Released Date/Time: Sep 09, 2023 11:53 AM Reporting Lab: [facility] [address] [place] [phone] Performing Lab: [facility] [address] [facility] [address] [facility] CBC LYMPHOCYTES /100 LEUKOCYTES IN BLOOD BY AUTOMATED COUNT 25 10/05 Specimen Type: BLOOD No comment entered. Ordering Provider: SANJEEV ROSS Report Released Date/Time: Sep 09, 2023 11:53 AM Reporting Lab: [facility] [address] [place] [phone] Performing Lab: [facility] [address] [place] [phone] [facility] CBC MONOCYTES/1 00 LEUKOCYTES IN BLOOD BY AUTOMATED COUNT 8 10/05 Specimen Type: BLOOD No comment entered. Ordering Provider: SANJEEV ROSS Report Released Date/Time: Sep 09, 2023 11:53 AM Reporting Lab: [facility] [address] [place] [phone] Performing Lab: [facility] [address] [place] [phone] [facility] CBC NEUTROPHILS /100 LEUKOCYTES IN BLOOD BY AUTOMATED COUNT 64 10/05 Specimen Type: BLOOD No comment entered. Ordering Provider: SANJEEV ROSS Report Released Date/Time: Sep 09, 2023 11:53 AM Reporting Lab: [facility] [address] [place] [address] Performing Lab: [facility] [address] [place] [phone] [facility] CBC EOSINOPHILS /100 LEUKOCYTES IN BLOOD BY AUTOMATED COUNT 2 10/05 Specimen Type: BLOOD No comment entered. Ordering Provider: SANJEEV ROSS Report Released Date/Time: Sep 09, 2023 11:53 AM Reporting Lab: [facility] [address] [place] [phone] Performing Lab: [facility] [address] [place] [phone] [facility] CBC BASOPHILS/1 00 LEUKOCYTES IN BLOOD BY AUTOMATED COUNT 1 10/05 Specimen Type: BLOOD No comment entered. Ordering Provider: SANJEEV ROSS Report Released Date/Time: Sep 09, 2023 11:53 AM Reporting Lab: [facility] [address] [place] [phone] Performing Lab: [facility] [address] [place] [phone] [place] [address] CBC LYMPHOCYTES [#/VOLUME] IN BLOOD BY AUTOMATED COUNT 2.24 10*3/u L 0.77 - 4.50 10/05 Specimen Type: BLOOD No comment entered. Ordering Provider: SANJEEV ROSS Report Released Date/Time: Sep 09, 2023 11:53 AM Reporting Lab: [facility] [address] [place] [phone] Performing Lab: [facility] [address] [place] [phone] [place] [address] CBC MONOCYTES [#/VOLUME] IN BLOOD BY AUTOMATED COUNT 0.73 10*3/u L 0.19 - 0.80 10/05 Specimen Type: BLOOD No comment entered. Ordering Provider: SANJEEV ROSS Report Released Date/Time: Sep 09, 2023 11:53 AM Reporting Lab: [facility] [address] [place] [phone] Performing Lab: [facility] [address] [place] [phone] [facility] CBC NEUTROPHILS [#/VOLUME] IN BLOOD BY AUTOMATED COUNT 5.68 10*3/u L 2.10 - 8.00 10/05 Specimen Type: BLOOD No comment entered. Ordering Provider: SANJEEV ROSS Report Released Date/Time: Sep 09, 2023 11:53 AM Reporting Lab: [place] [phone] Performing Lab: [address] [phone] [place] [address] CBC EOSINOPHILS [#/VOLUME] IN BLOOD BY AUTOMATED COUNT 0.16 10*3/u L 0.00 - 0.60 10/05 Specimen Type: BLOOD No comment entered. Ordering Provider: SANJEEV ROSS Report Released Date/Time: Sep 09, 2023 11:53 AM Reporting Lab: [place] [phone] Performing Lab: [place] [phone] CBC BASOPHILS [#/VOLUME] IN BLOOD BY AUTOMATED COUNT 0.05 10*3/u L 0.00 - 0.20 10/05 Specimen Type: BLOOD No comment entered. Ordering Provider: SANJEEV ROSS Report Released Date/Time: Sep 09, 2023 11:53 AM Reporting Lab: [place] [phone] Performing Lab: [place] [phone] GLUCOSE,BL OOD-poct (STL) GLUCOSE [MASS/VOLUM E] IN BLOOD BY AUTOMATED TEST STRIP 105 mg/dL 72 - 99 10/09 H Specimen Type: BLOOD Comment: Test Performed by: [id number] Meter #: [id number] Ordering Provider: IBLL GILMORE Report Released Date/Time: Oct 09, 2022 01:46 PM Reporting Lab: [facility] [address] [facility] [address] Performing Lab: [facility] [address] [facility] [address] [facility] Vital Signs Combined list of inpatient and outpatient Vital Signs from Department of Defense and Veterans Affairs, ranging from 12 months to all on record, depending upon the facility. Vital Sign Value Date Comments Source SYSTOLIC BLOOD PRESSURE 155 09/09/2023 11:16:05 [facility] DIASTOLIC BLOOD PRESSURE 76 09/09/2023 11:16:05 [facility] PULSE OXIMETRY 96 09/09/2023 11:16:05 [facility] WEIGHT 214 09/09/2023 11[facility]16:[facility] BMI 31 kg/m2 09/09/2023 11:16:[facility] PAIN 0 09/09/2023 11[facility]16:[facility] HEIGHT 70 09/09/2023 11[facility]16:[facility] TEMPERATURE 97.8 09/09/2023 11:16:05 [facility] PULSE 72 09/09/2023 11:16:[facility] RESPIRATION 20 09/09/2023 11:16:05 [facility] Encounters Combined list of: 1) Encounters from Department of Veterans Affairs facilities going backup to the last 18 months, not all VA inpatient encounters are included; 2) Encounters from the Department of [facility] facilities going backup to 280 months. Location Location Details Encounter Type Encounter Number Reason For Visit Attending Provider ADM Date DC Date Status Disposition Source [facility] Outpatient Encounter [id number] 10/31 [facility] Outpatient Encounter [id number] 11/12 [facility] Outpatient Encounter [id number] 12/08 [facility] Outpatient Encounter [id number] 12/11 [facility] QNHP OL DIG ASSMT&MGMT 5-10 [id number] Diagnos is: ICD-10- CM Z51.81 Encount er for therape utic drug level monitor JOSE RAUL Ba S 12/25 [facility] Outpatient Encounter [id number] 12/26 [facility] Outpatient Encounter [id number] 01/06 [facility] HC PRO PHONE CALL 5-10 MIN [id number] Diagnos is: ICD-10- CM Z51.81 Encount er for therape utic drug level monitor JOSE RAUL Ba S 01/07 [facility] Outpatient Encounter [id number] MITCHEL WESLEY 07/28 [facility] Outpatient Encounter [id number] ANILA OKEEFE 08/06 [facility] OFFICE O/P EST MOD 30 MIN [id number] Diagnos is: ICD-10- CM 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, right eye SHAI WEAVER TTHEW C 08/30 [facility] HEARING AID CHECK BOTH EARS [id number] Diagnos is: ICD-10- CM H90.3 Sensori neural hearing loss, bilater LUPIS Guy 08/31 [facility] HEARING AID REPAIR/MOD IFYING [id number] Diagnos is: ICD-10- CM H90.3 Sensori neural hearing loss, KALI Gaffney 09/07 [facility] N [facility] OFFICE O/P EST MOD 30 MIN [id number] Diagnos is: ICD-10- CM Z00.00 Encntr for general adult medical exam w/o abnorma l finding s CODY,DORCAS SA S 09/08 [facility] HEARING AID FITTING/CH ECKING [id number] Diagnos is: ICD-10- CM H90.3 Sensori neural hearing loss, FAITH Durbin 10/06 [facility] Encounter [id number] 10/26 [facility] Outpatient Encounter [id number] 02/22 [facility] Social History Combined list of available smoking, tobacco, and other social history from Department of Defense and Veterans Affairs facilities. Social History Type Response Date Comment [facility] e Tobacco smoking status NHIS VA-TOBACCO FORMER USER 10/07/2022 [facility] History of tobacco use SC-TOBACCO QUIT 15 YRS OR MORE 10/07/2022 [facility] History of tobacco use VA-TOBACCO FORMER USER 09/20/2020 [facility] History of tobacco use VA-TOBACCO FORMER USER 07/15/2018 [facility] History of tobacco use VA-TOBACCO FORMER USER 11/20/2017 [facility] History of tobacco use QUIT TOBACCO >7 YEARS AGO 10/06/2017 [facility] History of tobacco use QUIT TOBACCO >7 YEARS AGO 12/26/2016 [facility] Plan of Care List of future care activities from Department of Veterans Affairs facilities. Additional future care activities may be listed in the Assessment and Plan section. Date/Time Care Activity Care Activity Detail Facili ty 06/09/2024 AMBULATORY - MEDICINE AMBULATORY - MEDICI [facility]
[2024-04-13 07:37] LABS: Alanine Aminotransferase 15 U/L (6-50); Albumin Level 4.5 g/dL (3.5-5.1); Alkaline Phosphatase 52 U/L (38-126); Anion Gap 10 mmol/L (4-12); Aspartate Amino Transferase 17 U/L (17-59); Blood Urea Nitrogen 20 mg/dL (9-20); Calcium 9.9 mg/dL (8.4-10.2); Carbon Dioxide 29 mmol/L (22-30); Chloride 98 mmol/L (98-107); Estimated Glomerular Filt Rate > 60; Glucose 111 mg/dL (65-110); Potassium 4.5 mmol/L (3.4-5.0); Sodium 137 mmol/L (137-145)
[2024-04-13 07:40] LABS: Hemoglobin A1C 6.2 % (<5.7)
== END 2024-04-13 07:00 | disposition home or self-care (01) ==
PROVIDERS: PCP Family Medicine; Visit Provider Physician Assistant
DX: I48.20 Chronic atrial fibrillation, unspecified (principal); I10 Essential (primary) hypertension; E11.9 Type 2 diabetes mellitus without complications
CPT/HCPCS: 36415; 80053; 83036

== ENCOUNTER 2024-09-23 08:07 | Outpatient (CLI) | payer MEDICARE, SELFPAY ==
--- OUTSIDE RECORDS SUMMARY | 2024-09-23 08:10 | XMS_ITS | Encounter Summary ---
Author Name [facility] Organization [facility] Address [address] [place] [address] Care Team Providers Care Client Care Consultant Name Role Phone CAMMY GILMORE Primary Care [...] MEDIC ARE SUPPL EMENT Aug 23, 2013 [id number] [phone] [facility]OJUST[facility] PATIENT ANTHEM BCBS [place] MEDICARE SUPPLEMEN JAMIN MEDIC ARE SUPPL EMENT Aug 23, 2013 [id number] [phone] CHAPINCITO, JUSTIN PATIENT ANTHEM [place] MEDICARE SUPPLEMEN JAMIN MEDIC ARE SUPPL EMENT Aug 23, 2013 [id number] [phone] [place] PATIENT [place] MEDIGAP PLAN F MEDIC ARE SUPPL EMENT Aug 23, 2013 [id number] [phone] [place] PATIENT ANTHEM [place] MEDICARE SUPPLEMEN JAMIN MEDIC ARE SUPPL EMENT Aug 23, 2013 [id number] [phone] CHAPIN[place]O, JUSTIN PATIENT [place] MEDICARE SUPPLEMEN JAMIN MEDIC ARE SUPPL EMENT Aug 23, 2013 [id number] [phone] [place], JUST[place] PATIENT [place] SUPPLEMEN JAMIN MEDIC ARE SUPPL EMENT Aug 23, 2013 [id number] [phone] CHAPINCITO, JUSTIN PATIENT MEDICARE (WNR) MEDICARE (M) PART B Nov 23, 2010 PART B [id number] CHAPINCITO, JUSTIN PATIENT MEDICARE (WNR) MEDICARE (M) PART B Nov 23, 2010 PART B [id number] CHAPINCITO, JUSTIN PATIENT MEDICARE (WNR) MEDICARE (M) PART B Nov 23, 2010 PART B [id number] CHAPINCITO, JUSTIN PATIENT MEDICARE (WNR) MEDICARE (M) PART A Nov 23, 2009 PART A [id number] CHAPINCITO, JUSTIN PATIENT MEDICARE (WNR) MEDICARE (M) PART A Nov 23, 2009 PART A [id number] CHAPINCITO, JUSTIN PATIENT MEDICARE (WNR) MEDICARE (M) PART A Nov 23, 2009 PART A [id number] CHAPINCITO, JUSTIN PATIENT Selected Encounter This section includes the information on record at MD for the Encounter. Date/Time Encounter Type Encounter Description Reason Provider Source Oct 07, 2023 03:05 PM HEARING AID FITTING/CHECKIN G AUDIOLOGY ICD-10-CM H90.3 Sensorineural hearing loss, bilateral FAITH FISHER Sarah Encounter Template Text not used by MD Assessments - Encounter Diagnoses This section includes the primary and secondary diagnoses documented for the Encounter. Date/Time Primary/Secondary Diagnosis Diagnosis Name Provider Source Oct 07, 2023 03:19 PM PRIMARY Sensorineural hearing loss, bilateral ROSALIND BEAUCHAMP [facility] Lab Results: +/- 30 days of the encounter This section includes the Chemistry and Hematology Lab Results on record with MD for the patient. Radiology Reports and Pathology Reports are provided separately, in subsequent sections. Lab Results This section contains the Chemistry/Hematology Results that were resulted 30 days before or 30 daysafter the date of the Encounter. Date/Time Source Result Type Result - Unit Interpretation Reference Range Specimen Type Comment Oct 06, 2023 08:22 AM [facility] B12 SERUM Specimen Type: SERUM Comment: The listed sex of this patient may not be a typical indication for this test. Therefore, reference ranges or interpretive criteria listed may not be valid. Clinical correlation suggested. Ordering Provider: SANJEEV ROSS Report Released Date/Time: Sep 09, 2023 11:53 AM Reporting Lab: [facility] [address] [facility] [address] Performing Lab: [facility] [address] [facility] [address] B12 234 pg/mL 213-816 Oct 06, 2023 08:22 AM [facility] THYROXINE SERUM Specimen Type: SERUM Comment: The listed sex of this patient may not be a typical indication for this test. Therefore, reference ranges or interpretive criteria listed may not be valid. Clinical correlation suggested. Ordering Provider: SANJEEV ROSS Report Released Date/Time: Sep 09, 2023 11:53 AM Reporting Lab: [facility] [address] [place] [address] Performing Lab: [facility] [address] [facility] [address] THYROXINE 6.07 ug/dL 4.5-12 Oct 06, 2023 08:22 AM [facility] VITAMIN D, 25-HYDROXY SERUM Specimen Type: SE RUM Comment: The listed sex of this patient may not be a typical indication for this test. Therefore, reference ranges or interpretive criteria listed may not be valid. Clinical correlation suggested. Ordering Provider: SANJEEV ROSS Report Released Date/Time: Sep 09, 2023 11:53 AM Reporting Lab: [facility] [address] [facility] [address] Performing Lab: [facility] [address] [facility] [address] VITAMIN D, 25-HYDROXY 52.8 ng/mL 30-96 Oct 06, 2023 08:22 AM [facility] TSH W/ REFLEX FT4 (STL) PLASMA Specimen Type: PLASMA No comment entered. Ordering Provider: SANJEEV ROSS Report Released Date/Time: Sep 09, 2023 11:53 AM Reporting Lab: [facility] [address] [facility] [address] Performing Lab: [facility] [address] [facility] [address] TSH 3.194 u[IU]/mL 0.47-5 Oct 06, 2023 08:22 AM [facility] PROST. SPECIFIC AG.(PB-STL) SERUM Specimen Ty pe: SERUM Comment: The listed sex of this patient may not be a typical indication for this test. Therefore, reference ranges or interpretive criteria listed may not be valid. Clinical correlation suggested. Ordering Provider: SANJEEV ROSS Report Released Date/Time: Sep 09, 2023 11:53 AM Reporting Lab: [address] [address] Performing Lab: [facility] [address] [facility] [address] PROST. SPECIFIC AG.(PB-STL) 1.228 ng/mL 0-4 Oct 06, 2023 08:22 AM [facility] HGA1C BLOOD Specimen Type: BLOOD No comment entered. Ordering Provider: SANJEEV ROSS Report Released Date/Time: Sep 09, 2023 11:53 AM Reporting Lab: [facility] [address] [place] [phone] Performing Lab: [facility] [address] [facility] [address] HGA1C 6.3 H 4.0-6.0 Oct 06, 2023 08:22 AM [facility] COMPREHENSIVE METABOLIC PANEL PLASMA Specimen Type: PLASMA Comment: No hemolysis noted. Ordering Provider: SANJEEV ROSS Report Released Date/Time: Sep 09, 2023 11:53 AM Reporting Lab: [facility] [address] [facility] [address] Performing Lab: [address] [address] CREATININE 0.95 mg/dL 0.7-1.3 UREA NITROGEN 12.5 [...] 83.5 >60 Oct 06, 2023 08:22 AM [facility] CBC BLOOD Specimen Type: BLOOD No comment entered. Ordering Provider: SANJEEV ROSS Report Released Date/Time: Sep 09, 2023 11:53 AM Reporting Lab: [facility] [address] [place] [facility] [place] [address] Performing Lab: [facility] [address] [facility] [address] WBC 8.9 10*3/uL 3.6-11.2 RBC 4.74 10*6/uL 4.10-5.70 HGB 14.0 g/dL 13.1-16.8 HCT 41.8 38.2-48.4 MCV 88.2 fL 80.0-100.0 MCH 29.5 pg 27.0-34.0 MCHC 33.5 g/dL 33.0-36.0 PLT 244 10*3/uL 150-400 MPV 9.3 fL 7.5-11.2 RDW 13.0 11.8-15.1 LYMPHOCYTES, AUTO % 25 MONOCYTES, AUTO % 8 NEUTROPHILS, AUTO % 64 EOSINOPHILS, AUTO % 2 BASOPHILS, AUTO % 1 LYMPHOCYTES, ABSOLUTE 2.24 10*3/uL 0.77- 4.50 MONOCYTES, ABSOLUTE 0.73 10*3/uL 0.19-0. 80 NEUTROPHILS, ABSOLUTE 5.68 10*3/uL 2.10- 8.00 EOSINOPHILS, ABSOLUTE 0.16 10*3/uL 0.00- 0.60 BASOPHILS, ABSOLUTE 0.05 10*3/uL 0.00-0. 20 Social History: Smoking Status (Most current) and Tobacco Use (All prior to encounter date) This section includes the most current, and the historical, smoking and tobacco- related health factors from the MD facility where the Encounter took place. Current Smoking Status This section includes the most current smoking, or tobacco-related health factor, from the MD facility where the Encounter took place. Date/Time Current Smoking Status Comment Facil ity Oct 07, 2022 04:23 PM VA-TOBACCO FORMER USER [facility] Tobacco Use History This section includes a history of the smoking, or tobacco-related health factors, that were collected on or before the date of the Encounter. The data comes from the MD facility where the Encounter took place. Date/Time Smoking Status/Tobacco Use Comment F acility Oct 07, 2022 04:23 PM MD-TOBACCO QUIT 15 YRS OR MORE [facility] Encounter Notes: All associated encounter notes This section contains the clinical notes associated to the Encounter. Date/Time Encounter Note(s) Provider Source Oct 07, 2023 03:05 PM AUDIOLOGY SHOES SALESPERSON NOTE: LOCAL TITLE: HEARING AIDS STL STANDARD TITLE: AUDIOLOGY SHOES SALESPERSON NOTE DATE OF NOTE: OCT 07, 2023@15:05 ENTRY DATE: OCT 07, 2023@15:05:20 AUTHOR: FAITH FISHER COSIGNER: URGENCY: STATUS: COMPLETED SUBJECT: audio HEARING AIDS ST Has ADDENDA HEARING AID DROP OFF dropped off the following VA issued aid(s): 07/09/18 SONOVA PHONAK VIRTO B90 [place] R [id number] 07/09/18 SONOVA PHONAK VIRTO B90 CA L [id number] PHONE: [phone] REPORTED PROBLEM: Reprogrammed. Don't no instructions. REPAIR ACTIONS: General cleaning. Listening check OK. PROGRAMMING: Restored settings. Enabled datalogging. Confirmed fucntional VC in both aids. PLAN: [facility] notified of repair actions: [x]Hearing device(s) shipped to [facility] per [facility] request. Included fitting report to review device controls. Counseled over the phone as well. Address: [address] [place] [address] Completed by Rosalind Beauchamp B.A., audiology student services counselor leadership program intern. The information above has been reviewed by this provider. I am in agreement with the treatment plan as outlined. /primo/ Shira Angel, [facility] Staff Associate Professor Of Chemistry, Surgery Service Signed: 10/07/2023 15:42 10/09/2023 ADDENDUM STATUS: COMPLETED [id number] /primo/ Shira JOHNS Staff Associate Professor Of Chemistry, Surgery Service Signed: 10/09/2023 07:32 FAITH FISHER [facility]
--- OUTSIDE RECORDS SUMMARY | 2024-09-23 08:10 | XMS_ITS | Encounter Summary ---
Author Organization [facility] Healthcare Address [address] [place] [address] Care Team Providers Care Superintendent Automotive Name Role Phone Bernardo Rose MD Primary Care Provider Encounter Details Date Type Department Care Team (Late st Contact Info) Description 02/19/2024 Orders Only [facility] Health Information Management [address] [place] [address] Neil Arias MD [address] [facility] [address] [place] [address] [facility] [place] [address] [place] [address] Social History Tobacco Use Types Packs/Day Years [...] on filedocumented in this encounter Care Teams Superintendent Automotive Relationship Specialty Start Date End Date Bernardo Rose MD [address] [facility] [address] [place] [address] PCP - General Family Medicine 01/26/18 documented as of this encounter
--- OUTSIDE RECORDS SUMMARY | 2024-09-23 08:10 | XMS_ITS | Encounter Summary ---
Author Name [facility] [place] [facility] [place] [facility] [place] Address [address] [place] [address] Care Team Providers Care Dial Polisher Name Role Phone CAMMY GILMORE Primary Care [...] MEDIC ARE SUPPL EMENT Aug 23, 2013 [id number] [phone] CHAPINCITOFOX PATIENT ANTHEM BCBS [place] MEDICARE SUPPLEMEN JAMIN MEDIC ARE SUPPL EMENT Aug 23, 2013 [id number] [phone] CHAPINCITO, FOX PATIENT ANTHEM BCBS [place] MEDICARE SUPPLEMEN JAMIN MEDIC ARE SUPPL EMENT Aug 23, 2013 [id number] [phone] CHAPINCITOFOX PATIENT ANTHE[place] MEDIGAP PLAN F MEDIC ARE SUPPL EMENT Aug 23, 2013 [id number] [phone] CHAPINCITOFOX PATIENT ANTHEM BCBS [place] MEDICARE SUPPLEMEN JAMIN MEDIC ARE SUPPL EMENT Aug 23, 2013 [id number] [phone] CHAPINCITO, FOX PATIENT [place]BS [place] MEDICARE SUPPLEMEN JAMIN MEDIC ARE SUPPL EMENT Aug 23, 2013 [id number] [phone] CHAPINCITO, [place] SU[place]AMIN MEDIC ARE SUPPL EMENT Aug 23, 2013 [id number] [phone] CHAPINCITO, FOX PATIENT MEDICARE (WNR) MEDICARE (M) PART B Nov 23, 2010 PART B [id number] CHAPINCITO, FOX PATIENT MEDICARE (WNR) MEDICARE (M) PART B Nov 23, 2010 PART B [id number] CHAPINCITO, FOX PATIENT MEDICARE (WNR) MEDICARE (M) PART B Nov 23, 2010 PART B [id number] CHAPINCITO, FOX PATIENT MEDICARE (WNR) MEDICARE (M) PART A Nov 23, 2009 PART A [id number] [phone] CHAPINCITO, FOX PATIENT MEDICARE (WNR) MEDICARE (M) PART A Nov 23, 2009 PART A [id number] CHAPINCITO, FOX PATIENT MEDICARE (WNR) MEDICARE (M) PART A Nov 23, 2009 PART A [id number] CHAPINCITO, FOX PATIENT Selected Encounter This section includes the information on record at [place] for the Encounter. Date/Time Encounter Type Encounter Description Reason Provider Source Jun 09, 2024 10:30 AM OFFICE O/P EST MOD 30 MIN PRIMARY CARE/MEDICINE ICD-10-CM I25.10 [facility] heart disease of [place] coronary artery w/o KEITH Quiroz [facility] Encounter Template Text not used by [place] Assessments - Encounter Diagnoses This section includes the primary and secondary diagnoses documented for the Encounter. Date/Time Primary/Secondary Diagnosis Diagnosis Name Provider Source Jun 09, 2024 11:30 AM PRIMARY [place] heart disease of [place] coronary artery w/o KEITH Quiroz [facility] Jun 09, 2024 11:30 AM SECONDARY Abdominal aortic aneurysm, without rupture, unspecified KEITH IRELAND [facility] Jun 09, 2024 11:30 AM SECONDARY Allergic rhinitis, unspecified KEITH IRELAND [facility] Jun 09, 2024 11:30 AM SECONDARY Chronic obstructive pulmonary disease, unspecified KEITH IRELAND [facility] Jun 09, 2024 11:30 AM SECONDARY Chronic systolic (congestive) heart failure KEITH IRELAND [facility] Jun 09, 2024 11:30 AM SECONDARY Depression, unspecified KEITH IRELAND [facility] Jun 09, 2024 11:30 AM SECONDARY Elevated white blood cell count, unspecified KEITH IRELAND [facility] Jun 09, 2024 11:30 AM SECONDARY Encounter for therapeutic drug level monitoring KEITH IRELAND [facility] Jun 09, 2024 11:30 AM SECONDARY Essential (primary) hypertension KEITH I[facility]AND [facility] Jun 09, 2024 11:30 AM SECONDARY Hypothyroidism, unspecified KEITH IRELAND 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 Jun 09, 2024 11:30 AM SECONDARY Mixed hyperlipidemia KEITH IRELAND [facility] Jun 09, 2024 11:30 AM SECONDARY Obstructive sleep apnea (adult) (pediatric) KEITH IRELAND . [facility] Jun 09, 2024 11:30 AM SECONDARY Occlusion and stenosis of unspecified carotid artery KEITH IRELAND [facility] Jun 09, 2024 11:30 AM SECONDARY Type 2 diabetes mellitus without complications KEITH IRELAND . [facility] Jun 09, 2024 11:30 AM SECONDARY Unspecified atrial fibrillation KEITH IRELAND [facility] Plan of Treatment: Future Appointments (+ 6 months) and Future Tests (+/- 45 days) The Plan of Treatment section includes future care activities for the patient from all [place] treatmentfacilities. This section includes future appointments and future orders which are active, pending or scheduled. Future Appointments This section includes appointments that were scheduled to occur 6 months from the date of the Encounter, up to a maximum of 20 appointments. The data comes from all [place] treatment facilities. Appointment Date/Time Appointment Type Appointme nt Facility Name Oct 11, 2024 08:45 AM AMBULATORY - SURGERY [facility] Lab Results: +/- 30 days of the encounter This section includes the Chemistry and Hematology Lab Results on record with [place] for the patient. Radiology Reports and Pathology Reports are provided separately, in subsequent sections. Lab Results This section contains the Chemistry/Hematology Results that were resulted 30 days before or 30 daysafter the date of the Encounter. Date/Time Source Result Type Result - Unit Interpretation Reference Range Specimen Type Comment July 06, 2024 09:11 AM [facility] TSH W/ REFLEX FT4 (STL) PLASMA Specimen Type: PLASMA No comment entered. Ordering Provider: GOPI IRELAND Report Released Date/Time: Jun 09, 2024 10:51 AM Reporting Lab: [facility] [address] [facility] [id number] Performing Lab: [address] [address] TSH 2.063 u[IU]/mL 0.47-5 July 06, 2024 09:11 AM [facility] MICRAL/CREAT PROFILE (STL) URINE Specimen Typ e: URINE Comment: uALB/CREAT Ratio Unable to be calculated Unable to calculate due to Microalbumin < 5.0 mg/L Ordering Provider: GOPI IRELAND Report Released Date/Time: Jun 09, 2024 10:51 AM Reporting Lab: [facility] [address] [facility] [phone] Performing Lab: [address] [address] URINE ALBUMIN (PB-STL) <5.0 mg/L uACR (STL) comment mg/g 0-29 CREATININE URINE/OTHERS 41.7 mg/dL L 63-16 6 July 06, 2024 09:11 AM [facility] LIPID PANEL (STL) PLASMA Specimen Type: PLASM A No comment entered. Ordering Provider: GOPI IRELAND Report Released Date/Time: Jun 09, 2024 10:51 AM Reporting Lab: [facility] [address] [facility] [address] Performing Lab: [address] [address] CHOLESTEROL 107 mg/dL 0-200 TRIGLYCERIDE 65 mg/dL 0-150 CALCULATED LDL 58 mg/dL HDL(New) 36 mg/dL L >40 July 06, 2024 09:11 AM [facility] CBC BLOOD Specimen Type: BLOOD No comment entered. Ordering Provider: GOPI IRELAND Report Released Date/Time: Jun 09, 2024 10:51 AM Reporting Lab: [facility] [address] [place] [phone] Performing Lab: [address] [address] WBC 8.5 10*3/uL 3.6-11.2 RBC 4.57 10*6/uL 4.10-5.70 HGB 13.6 g/dL 13.1-16.8 HCT 40.7 38.2-48.4 MCV 89.1 fL 80.0-100.0 MCH 29.8 pg 27.0-34.0 MCHC 33.4 g/dL 33.0-36.0 PLT 229 10*3/uL 150-400 MPV 9.3 fL 7.5-11.2 RDW 13.0 11.8-15.1 LYMPHOCYTES, AUTO % 25 MONOCYTES, AUTO % 7 NEUTROPHILS, AUTO % 64 EOSINOPHILS, AUTO % 2 BASOPHILS, AUTO % 1 LYMPHOCYTES, ABSOLUTE 2.14 10*3/uL 0.77- 4.50 MONOCYTES, ABSOLUTE 0.60 10*3/uL 0.19-0. 80 NEUTROPHILS, ABSOLUTE 5.43 10*3/uL 2.10- 8.00 EOSINOPHILS, ABSOLUTE 0.19 10*3/uL 0.00- 0.60 BASOPHILS, ABSOLUTE 0.05 10*3/uL 0.00-0. 20 Vital Signs: All taken on the encounter date This section contains inpatient and outpatient Vital Signs collected on the date of the Encounter. Date/Time Temperature Pulse Blood Pressure Respiratory Rate SP02 Pain Height Weight Body Mass Index Source Jun 09, 2024 10:48 AM 138/88 [facility] Jun 09, 2024 10:39 AM 97.6 64 152/89 20 95 0 70 216 31 [facility] Social History: Smoking Status (Most current) and Tobacco Use (All prior to encounter date) This section includes the most current, and the historical, smoking and tobacco- related health factors from the [place] facility where the Encounter took place. Current Smoking Status This section includes the most current smoking, or tobacco-related health factor, from the [place] facility where the Encounter took place. Date/Time Current Smoking Status Comment Facil ity Jun 09, 2024 10:30 AM VA-TOBACCO USE FOR WILLIAM CIGARETTES [facility] Tobacco Use History This section includes a history of the smoking, or tobacco-related health factors, that were collected on or before the date of the Encounter. The data comes from the [place] facility where the Encounter took place. Date/Time Smoking Status/Tobacco Use Comment F acility Jun 09, 2024 10:30 AM VA-TOBACCO USE FOR WILLIAM CIGARETTES [facility] Sep 20, 2020 01:00 PM VA-TOBACCO FORMER USER [facility] Sep 20, 2020 01:00 PM VA-TOBACCO QUIT 15 YRS OR MORE [facility] July 15, 2018 03:15 PM VA-TOBACCO FORMER USER [facility] July 15, 2018 03:15 PM VA-TOBACCO QUIT 5 TO < 15 YRS [facility] Nov 20, 2017 01:01 PM VA-TOBACCO FORMER USER [facility] Nov 20, 2017 01:01 PM VA-TOBACCO QUIT 5 TO < 15 YRS [facility] Encounter Notes: All associated encounter notes This section contains the clinical notes associated to the Encounter. Date/Time Encounter Note(s) Provider Source July 07, 2024 03:10 PM PHYSICIAN LETTERS: LOCAL TITLE: TEST RESULT GENERAL LETTER STL STANDARD TITLE: PHYSICIAN LETTERS DATE OF NOTE: JULY 07, 2024@15:10 ENTRY DATE: JULY 07, 2024@15:11:04 AUTHOR: GOPI IRELAND COSIGNER: URGENCY: STATUS: COMPLETED [facility] [address] [place] [address] JULY 07, 2024 FOX BECKHAM [address] [place] [id number] Dear Fox Beckham, I would like to update you on your recent test results. LIPID PROFILE - High cholesterol and triglycerides (lipids) are risk factors for heart disease. Your cholesterol should fall between 140 and 200, and your triglycerides levels should be less than or equal to 150. HDL is the good cholesterol and should ideally be greater than 40. LDL is the bad cholesterol and optimal levels should be less than 100 (near optimal is between 100 and 129). TRIGLYCERIDE 65 mg/dL 07/06/2024 09:11 CHOLESTEROL 107 mg/dL 07/06/2024 09:11 HDL(New) 36 L mg/dL 07/06/2024 09:11 CALCULATED LDL 58 mg/dL 07/06/2024 09:11 These readings are within normal limits other than low HDL. HDL is the good cholesterol that cleans up plague in the arteries. You can improve your HDL by exercising & eating a heart-healthy diet. You may benefit from meeting with the dietitian. You can call them to schedule an appointment at . MICROALBUMIN - The microalbumin to creatinine ratio test is most commonly used to screen for kidney problems. MICROALBUMIN No MICRAL/CREAT RATIO (STL) July 06, 2024@09:11 Test name Result units uACR (STL) comment mg/g CREATININE URINE/OTHERS 41.7 L mg/dL URINE ALBUMIN (PB-STL) <5.0 mg/L These readings are similar to previous results and not a clinical concern at this time. CBC - A complete blood count (CBC) gives important information about the kinds and numbers of cells in the blood, especially red blood cells, white blood cells, and platelets. HGB 13.6 g/dL 07/06/2024 09:11 HEMATOCRIT 40.7 % (07/06/24 09:11) PLT 229 10*3/uL 07/06/2024 09:11 WHITE BLOOD COUNT 8.5 10*3/uL (07/06/24 09:11) These readings are within normal limits. TSH - Thyroid-stimulating hormone (also known as TSH or thyrotropin) is a peptide hormone synthesized and secreted by thyrotrope cells in the anterior pituitary gland, which regulates the endocrine function of the thyroid gland. TSH TSH 2.063 uIU/mL 07/06/2024 09:11 These readings are within normal limits. PLAN No medication changes. To improve your HDL cholesterol, I encourage you to eat a heart-healthy diet that focuses on protein and vegetables and incorporate increase your activity/exercise as tolerated. Please continue your treatment as we discussed during your visit. If you have any questions please call your high risk case manager. I look forward to seeing you at your next clinic appointment. Thank you for choosing the [facility] for your healthcare. FUTURE APPOINTMENTS: 04/12/2025 11:30 [facility]-ST CLR PACT 6 PCP Sincerely, GOPI IRELAND, KAYLA, BRIJESH-CAESAR Nurse Practitioner FOX BECKHAM KRISTEN D [facility] Jun 09, 2024 10:45 AM PRIMARY CARE NOTE: LOCAL TITLE: PRIMARY CARE PROVIDER ESTABLISHED VISIT [facility] STANDARD TITLE: PRIMARY CARE NOTE DATE OF NOTE: JUN 09, 2024@10:45 ENTRY DATE: JUN 09, 2024@10:45:22 AUTHOR: GOPI IRELAND EXP COSIGNER: URGENCY: STATUS: COMPLETED REASON FOR VISIT: Evaluation and management of chronic medical conditions CHIEF COMPLAINT: regular check up SUBJECTIVE HISTORY HPI: 73 y.o. WHITE MALE presents today for evaluation and management of chronic medical conditions. Patient has a current medical history as listed below. Pt seen today in absence of the usual primary care provider. Pt's last [place] PCP appt was on 09/09/23. Non-VA Providers: PCP- Harjit Melton [employer] Cardio- Dr Arroyo Vascular surgery- Dr. Baltazar Parker and Amie Butts [employer] #AAA w/o rupture: Underwent EVAR procedure on 05/09/2024 at [facility] for infrarenal AAA w/o rupture. Doing well. No acute complaints or concerns. States he was hospitalized for two days. Denies complications. No CP, SOB, palpitations, n/v, abd pain, LH or dizziness. Has an appt today at 1pm today w/ CT a/p. Denies any med changes since his EVAR 05/09/24. -Managed by nonVA vascular surgery Amie Butts NP and Dr. Baltazar Parker. #COPD: stable. Denies issues. -Meds: albuterol, Wixela, Spiriva -SOB w/ walking slight hill -white productive cough that's chronic and no more than usual -No hospitalizations for exacerbations during the last year -Denies SOB, increased cough or sputum production, wheezing #HTN: Endorses taking his meds as prescribed w/o unwanted or neg s/e. Denies any med changes since his EVAR 05/09/24. States he's doing well; no issues or complaints. Denies CP, palpitations, SOB, swelling, HAs, LH, or dizziness. WHAT IS YOUR GOAL FOR TODAY? get a check up SOURCE(S) OF HISTORY: [facility] reviewed and summarized Outside records reviewed and summarized PAST MEDICAL HISTORY 1) Sleep apnea comment: treated with biPAP [...] 04/2017 4.3 CM AAA per screening u/s performed in [facility] comment: 11/2018 4.5 cm AAA per ultrasound performed by [facility] 11) Therapeutic drug effect 12) Anticoagulant effect 13) Aneurysm of thoracic aorta comment: 11/2018 4.9 cm ascending thoracic aortic aneurysm. Followed by 14) Hypothyroidism (SCT [id number]) 15) Asymptomatic carotid artery stenosis 16) Exposure to potentially hazardous substance SOCIAL HISTORY: TOBACCO: former; quit 2004 ALCOHOL: 1 beer every few months ILLICIT: MJ - vapes/gummies ALLERGIES: Patient has answered NKA ALLERGY REVIEW: Allergy list reviewed and remains current. MEDICATIONS: Active and Recently Outpatient Medications (excluding Supplies): Active Outpatient Medications Status 1) AMLODIPINE BESYLATE 5MG TAB TAKE ONE TABLET BY MOUTH ONCE A ACTIVE (S) DAY FOR HEART/BLOOD PRESSURE 2) ARTIFICIAL SALIVA ORAL SPRAY TAKE 3-5 SPRAYS BY MOUTH EVERY ACTIVE TWO HOURS NEEDED TO RELIEVE DRY MOUTH AND THROAT. 3) ATORVASTATIN CALCIUM 80MG TAB TAKE ONE-HALF TABLET BY MOUTH ACTIVE EVERY EVENING FOR CHOLESTEROL. REPORT ANY UNEXPLAINED MUSCLE PAIN/WEAKNESS TO PROVIDER. 4) FLUTICAS 250/SALMETEROL 50 INHL DISK 60 INHALE 1 PUFF BY ACTIVE (S) ORAL INHALATION TWICE A DAY FOR BREATHING (OPEN DISKUS; CLICK ONLY ONCE; MAY INHALE TWICE TO COMPLETE DOSE; CLOSE WHEN FINISHED) RINSE MOUTH AND SPIT AFTER EACH USE. 5) FLUTICASONE PROP 50MCG 120D NASAL INHL INSTILL 2 SPRAYS IN ACTIVE EACH NOSTRIL ONCE A DAY FOR ALLERGIES (MUST BE USED DIRECTED FOR MINIMUM OF 21 DAYS TO PROVIDE ADEQUATE BENEFITS) 6) FUROSEMIDE 20MG TAB TAKE ONE TABLET BY MOUTH EVERY MORNING ACTIVE FOR FLUID RETENTION 7) LEVOTHYROXINE NA 137MCG TAB TAKE ONE TABLET BY MOUTH EVERY ACTIVE MORNING BEFORE A MEAL FOR THYROID. TAKE 30 MINUTES BEFORE FOOD. TAKE SEPARATELY FROM ALL OTHER MEDICATIONS. 8) METOPROLOL TARTRATE 50MG TAB TAKE ONE-HALF TABLET BY MOUTH ACTIVE TWICE A DAY FOR HEART/BLOOD PRESSURE. TAKE WITH OR IMMEDIATELY FOLLOWING FOOD. 9) MONTELUKAST NA 10MG TAB TAKE ONE TABLET BY MOUTH EVERY ACTIVE EVENING 10) RIVAROXABAN 20MG TAB TAKE ONE TABLET BY MOUTH EVERY EVENING ACTIVE TO THIN BLOOD. TAKE WITH FOOD. 11) SACUBITRIL 97MG/VALSARTAN 103MG TAB TAKE ONE-HALF TABLET BY ACTIVE MOUTH TWICE A DAY FOR HEART 12) SERTRALINE HCL 100MG TAB TAKE ONE TABLET BY MOUTH EVERY ACTIVE MORNING FOR MOOD 13) TIOTROPIUM 2.5MCG/ACTUAT 60D ORAL INHL INHALE 2 INHALATIONS ACTIVE BY ORAL INHALATION ONCE A DAY (ADMINISTER AT SAME TIME EACH DAY) FOR BREATHING. Active Non-VA Medications Status 1) Non-VA ASPIRIN 81MG EC TAB 81MG BY MOUTH ONCE A DAY ACTIVE 14 Total Medications MEDICATION RECONCILIATION: Reviewed with patient. I have reviewed the patient's medication list with the patient and/or caregiver. Handwritten corrections, additions, and/or deletions were made to the list. Correct outpatient medication list was provided to the patient/caregiver. REVIEW OF SYSTEMS: General: Denies fever, chills, or unexplained weight loss or weight gain. Eyes, Ears, Nose, Throat: Denies visual changes, hearing loss, nasal drainage, or sore throat. Endo: Denies heat or cold intolerance, polydipsia, polyuria, or polyphagia. Cardiovascular: Denies chest pain, palpitations, or dizziness. Respiratory: Denies cough or shortness of breath. ABD/GI: Denies abd pain, nausea, vomiting, diarrhea, or constipation. Musculoskeletal/Extremities: Denies pain. Denies edema. /PHARMACEUTICAL SPECIALTY REPRESENTATIVE: Denies urinary urgency, increased frequency, dysuria, or hematuria. Psych: Denies depression, anxiety, insomnia, SI or HI. Neuro: Denies BASSETT, tremors, neuropathy, or seizures. Skin: Denies rashes, skin lesions. OBJECTIVE DATA PHYSICAL EXAMINATION: VITALS (most recent, as listed in the electronic record): Temperature: 97.6 F [36.4 C] (06/09/2024 10:39) BP: 152/89 (06/09/2024 10:39) Pulse: 64 (06/09/2024 10:39) Resp: 20 (06/09/2024 10:39) PulsOx: 95% (06/09/2024 10:39) Pain: 0 (06/09/2024 10:39) Weight: Measurement DT WEIGHT LB(KG)[BMI] 06/09/2024 10:39 216(97.98)[31*] 09/09/2023 11:16 214(97.07)[31*] Gen: Clean & well groomed. No acute distress(NAD). HEENT: EOMI, PERRLA. Neck: Supple, no lymphadenopathy, no thyroidmegaly, or carotid bruits Lungs: CTA. No accessory muscle use. Heart: RRR. S1S2. No murmur. 2+ pulses. Abdomen: Soft, non-tender, non-distended, +bowel sounds x4 quadrants. : Deferred Skin: Warm, dry, and intact. MSK/Ext: No edema, full ROM with muscle strength 5/5 in all extremities. Neuro: A+Ox4. Psych: Appropriate mood and affect. DATA REVIEW: HGA1C 6.3 H % 10/06/2023 08:22 Lipid Panel: No LIPID PANEL EO data found CMP: SODIUM 135 L mEq/L 10/06/2023 08:22 POTASSIUM 4.3 mEq/L 10/06/2023 08:22 CHLORIDE 103 mEq/L 10/06/2023 08:22 UREA NITROGEN 12.5 mg/dL 10/06/2023 08:22 CREATININE 0.95 mg/dL 10/06/2023 08:22 CALCIUM 9.9 mg/dL 10/06/2023 08:22 PROTEIN 7.1 g/dL 10/06/2023 08:22 ALBUMIN 4.4 g/dL 10/06/2023 08:22 ALKALINE PHOSPHATASE 59 U/L 10/06/2023 08:22 ALT/SGPT 11 U/L 10/06/2023 08:22 AST/SGOT 12 U/L 10/06/2023 08:22 TOTAL BILIRUBIN 1.0 mg/dL 10/06/2023 08:22 CARBON DIOXIDE 23 mEq/L 10/06/2023 08:22 GLUCOSE 117 H mg/dL 10/06/2023 08:22 EGFR (CKD-EPI 2020) 83.5 10/06/2023 08:22 CBC: WBC 8.9 10*3/uL 10/06/2023 08:22 RBC 4.74 10*6/uL 10/06/2023 08:22 HGB 14.0 g/dL 10/06/2023 08:22 HCT 41.8 % 10/06/2023 08:22 MCV 88.2 fL 10/06/2023 08:22 MCH 29.5 pg 10/06/2023 08:22 MCHC 33.5 g/dL 10/06/2023 08:22 RDW 13.0 % 10/06/2023 08:22 PLT 244 10*3/uL 10/06/2023 08:22 MPV 9.3 fL 10/06/2023 08:22 NEUTROPHILS, AUTO % 64 % 10/06/2023 08:22 LYMPHOCYTES, AUTO % 25 % 10/06/2023 08:22 MONOCYTES, AUTO % 8 % 10/06/2023 08:22 EOSINOPHILS, AUTO % 2 % 10/06/2023 08:22 BASOPHILS, AUTO % 1 % 10/06/2023 08:22 NEUTROPHILS, ABSOLUTE 5.68 10*3/uL 10/06/2023 08:22 LYMPHOCYTES, ABSOLUTE 2.24 10*3/uL 10/06/2023 08:22 MONOCYTES, ABSOLUTE 0.73 10*3/uL 10/06/2023 08:22 EOSINOPHILS, ABSOLUTE 0.16 10*3/uL 10/06/2023 08:22 BASOPHILS, ABSOLUTE 0.05 10*3/uL 10/06/2023 08:22 PSA: PROST. SPECIFIC AG.(PB-STL) 1.228 ng/mL 10/06/2023 08:22 Result: Acceptable Follow-up Action: Re check prior to next visit. Data results reviewed with patient and/or caregiver. nonVA labs and tests: non va Labs July 2023 normal lytes and LFTS Cr 0.9 Bun 17 eGFR >60 TSH US Arterial Duplex Lower Extremity Left Limited (06/02/2024 11:22 AM CDT): FINDINGS: Left: Triphasic arteries include the left common femoral artery, profunda femoral artery and proximal superficial femoral artery. Left common femoral vein, saphenofemoral junction, proximal femoral and profunda veins are patent and compressible. Nonvascular left groin hypoechoic area noted adjacent to common femoral artery measuring 1.10 x 0.61 x 0.88 cm. CONCLUSION: 1. No evidence of pseudoaneurysms in the left groin. 05/10/24 BMP: Na 135 K+ 4.5 Ca 9.3 Cl 102 Glu 130 BUN 15 Cr 1.06 eGFR 73 CBC: WBC 13.6 RBC 4.47 Hgb 13.4 Hct 40.5 Plts 209 05/02/24 CBC: WBC 9.5 RBC 4.82 Hgb 14.3 Hct 43.5 Plts 232 A1c 6.2% Albumin 4.3 Alk phos ALT 10 15 ASSESSMENT/PLAN: #CAD s/p CABG x2v: stable, denies CP -Cont. current tx -ASA -atorvastatin -metoprolol -Entresto -Cont. aggressive risk factor & lifestyle mods (diet, exercise, wt mgt) -Managed by nonVA Cards #CHF: euvolemic on PE -NYHA class II -GDMT: 1. ARNi: Entresto 2. BB: metoprolol 3. MRA: n/a 4. SGLT2i: n/a -cont. furosemide -Pt edu: take daily wt. Notify clinic for wt gain of 3lbs 1 day or 5lbs 1 wk -Managed by nonVA Cardiology #A Fib: stable; rate controlled. Denies s/sx of bleeding w/ Xarelto. -cont. metoprolol for rate control -cont. rivaroxaban (Xarelto) for anticoagulation -check CBC -Managed by nonVA cards #HTN: fair control; BP goal <130/80 -Cont. current tx as above -Encouraged pt to monitor home BP 1-2hrs after taking meds -Notify PCP clinic if BP consistently above goal -Pt edu on low Na diet <2g/day, exercise, & wt mgt #HLD: LDL goal <70 -Cont. -atorvastatin -ASA -check lipid -Pt edu on lifestyle mods- optimize diet, exercise, and wt mgt #Carotid Artery Stenosis: stable; no acute complaints or concerns. Asymptomatic. -cont. surveillance imaging 1-2 yrs in [facility] -Cont. statin (denies myalgias) & ASA -Cont. risk factor modification; Encourage BP, BG, & cholesterol control -Managed by nonVA providers #AAA w/o rupture s/p EVAR 05/09/2024 ([facility]): stable. Now s/p EVAR procedure on 05/09/2024 at [facility]. Doing well. No acute complaints or concerns. -repeat CT a/p later today 06/09/24 in [facility] -Cont. CV risk mgt: BP & lipid mgt, healthy diet & exercise -ER precautions advised -Managed by nonVA vascular surgery Amie Butts NP and Dr. Baltazar Parker. #DMII: controlled; A1c goal <7% -05/02/24 A1c 6.2% -Cont. current mgt -cont. statin & Entresto -check A1c and uACR -Pt edu on lifestyle mods- optimizing diet, exercise, and wt mgt -Encouraged daily foot exam & annual eye exam -Screenings: -foot exam: WNL -eye exam: 08/31/23 -micral/cr: ordered -Managed by nonVA provider #COPD: Controlled w/ current tx. On ICS-LABA, LAMA and BENJAMIN PRN -Cont. -fluticasone/salmeterol (Wixela) 1 puff BID -tiotropium (Spiriva) -albuterol MDI PRN -Encouraged staying up-to-date w/ immunizations & exercise as tolerated #RONALD: controlled -wears CPAP nightly -encouraged to use CPAP nightly -pt edu on risks associated w/ uncontrolled RONALD (ex: CVD events, NM, CVA) #Hypothyroidism: euthyroid TSH 3.194 uIU/mL 10/06/2023 08:22 -cont. levothyroxine -check TSH reflex T4 -pt edu to take levothyroxine in AM 30min before breakfast on empty stomach #Depression: stable; denies SI/HI. -06/09/24 PHQ 9 score 0 -cont. sertraline (Zoloft) -Crisis hotline info given to pt #Allergic rhinitis: stable, controlled -cont. montelukast(Singulair) #leukocyctosis: likely acute leukocytosis 2/2 to EVAR surgery. WBC elevated on 05/10. Had EVAR on 05/09. No s/sx of acute infection. Afebrile. No fatigue. Feels fine. -check CBC HEALTH MAINTENANCE: -CRC Screening: declines -LDCT: not indicated -AAA: as above in HPI -PSA: 1.228 ng/mL 10/06/2023 USPSTF recs AGAINST PSA-based prostate CA screening for males 70+ y.o. Immunization Series Date Facility Reaction Info COVID-19 (PFIZER), MRNA, LNP-S, * 2 02/04/2022 [facility] COVID-19 (PFIZER), MRNA, LNP-S, * 1 01/08/2021 [facility] COVID-19 (PFIZER), MRNA, LNP-S, * 2 04/03/2020 [facility] <[facility]> COVID-19 (PFIZER), MRNA, LNP-S, * 1 03/08/2020 [facility] <C> COVID-19 (PFIZER), MRNA, LNP-S, * 3 12/26/2022 [facility] INFLUENZA, ADJUVANTED, QUADRIVAL* 1 12/08/2022 [facility] PNEUMOCOCCAL CONJUGATE PCV 13 12/26/2016 [facility]* PNEUMOCOCCAL POLYSACCHARIDE PPV23 01/20/2018 [facility]* RSV, RECOMBINANT, PROTEIN SUBUNI* 12/08/2022 [facility] ZOSTER RECOMBINANT 2 10/06/2017 [facility]* ZOSTER RECOMBINANT 1 06/24/2017 [facility]* -Flu declines -COVID-19 declines -Tdap declines Labs: CBC, Lipid, TSH reflex T4, uACR RETURN TO CLINIC: 9-12mo routine Future Appointments: 06/09/24 10:30 am NISSA ESPINOZA PACT 6 PCP [phone] SUMMARY STATEMENT: Plan of care has been discussed with including expected therapeutic benefits and potential side effects of prescribed medication and treatments. verbalizes understanding and is in agreement with the plan of care. Patient was instructed to keep all scheduled appointments and contact music executive for any additional problems. PAVE Foot Check - L,N,P,PH,PO,PT,U: A complete foot check was completed at this encounter. VISUAL INSPECTION: Includes inspection for skin breaks, deformity, erythema, trauma, pallor on elevation, dependent rubor, nail deformities, extensive callus and pitting edema. Visual exam results: Normal PEDAL PULSES: Includes palpation of dorsalis and posterior tibial pulses and signs/symptoms of vascular compromise like pain, pallor, paresthesia or paralysis. Present (even if diminished) SENSORY CHECK: Includes 10 gram Monofilament ([place]) test of sensation. Intact (Greater than or equal to 80% of sites checked) Abnormal (Less than 80% of sites checked): Intact LOW-RISK: LOW RISK INFORMATION PROVIDED: 1. Advised patient not to walk barefoot. 2. Explained the importance of daily foot checks for changes. 3. Stressed the importance of daily foot hygiene, including bathing and complete drying. The patient verbalized understanding and was offered a detailed handout on diabetic foot care. Tdap Immunization - L,N,P,PH,U: The patient declines to receive the recommended dose of Tdap vaccine. Immunization: TDAP Refusal Reason: PATIENT DECISION Patient refuses all immunization(s) in the TDAP group Date Documented: 06/09/24 11:20 Ischemic HD/Post NM Follow Up: Patient is taking aspirin from a non-[facility] source. Lipid profile ordered for patient. Depression Monitoring (PHQ-9) - M,N,P,PH,PS,R,S,T: PHQ-9 A PHQ-9 screen was performed. The score was 0. 1. Little interest or pleasure in doing things Not at all 2. Feeling down, depressed, or hopeless Not at all 3. Trouble falling or staying asleep, or sleeping too much Not at all 4. Feeling tired or having little energy Not at all 5. Poor appetite or overeating Not at all 6. Feeling bad about yourself or that you are a failure or have let yourself or your family down Not at all 7. Trouble concentrating on things, such as reading the newspaper or watching television Not at all 8. Moving or speaking so slowly that other people could have noticed. Or the opposite being so fidgety or restless that you have been moving around a lot more than usual Not at all 9. Thoughts that you would be better off or of hurting yourself in some way Not at all 10. If you checked off any problems, how DIFFICULT have these problems made it for you to do your work, take care of things at home or get along with other people? Not difficult at all [place] had no previous PHQ-9 score to compare to current score to gauge improvement PHQ-9 results discussed with patient Current care plan reviewed and discussed with patient Continue current plan Avg Risk Colorectal Cancer Screen - L,N,P,PH: AVERAGE RISK colorectal cancer screening is due based on information available to this clinical reminder Patient declined screening/surveillance. Patient educated on the benefits of colorectal cancer screening/surveillance and the risk if screening/surveillance is not completed. Level of Understanding: Good Diabetes: Kidney Health Evaluation - N,P,PH: Last eGFR: Most recent eGFR within past 12 months No data available for: uACR (PB-MA) URINE ALBUMIN (MA) URINE ALBUMIN (PB-STL) MICROALBUMIN-RU (PB-send out) Collection DT Specimen Test Name Result Units Ref Range 10/06/2023 08:22 PLASMA EGFR (CKD-EPI 202 83.5 Ref: >=60 Comment: No hemolysis noted. Last uACR: Most recent uACR/MicroAlbumin within past 12 months No data available for: uACR (PB-MA) URINE ALBUMIN (MA) URINE ALBUMIN (PB-STL) MICROALBUMIN-RU (PB-send out) Collection DT Specimen Test Name Result Units Ref Range 10/06/2023 08:22 PLASMA EGFR (CKD-EPI 202 83.5 Ref: >=60 Comment: No hemolysis noted. uACR (Urine Albumin-Creatinine Ratio) Quantitative urine creatinine and quantitative urine albumin lab tests were ordered. /primo/ AKILAH MARKSC, BRIJESH-BC Nurse Practitioner Signed: 06/09/2024 11:32 [facility] Jun 09, 2024 10:40 AM NURSING NOTE: LOCAL TITLE: V15 PACT FACE TO FACE NOTE STL STANDARD TITLE: NURSING NOTE DATE OF NOTE: JUN 09, 2024@10:40 ENTRY DATE: JUN 09, 2024@10:41:03 AUTHOR: HINA CLARK EXP COSIGNER: URGENCY: STATUS: COMPLETED Provider Visit: Patient Identifiers : Full Name Date of Reason for visit: Established Follow-Up Mode of Arrival: Ambulatory Allergy Review: Patient has answered NKA Allergy list reviewed and remains current. Recent Vital Signs: Temperature: 97.6 F [36.4 C] (06/09/2024 10:39) Pulse: 64 (06/09/2024 10:39) Respiration: 20 (06/09/2024 10:39) B/P: 152/89 (06/09/2024 10:39) Pain: 0 (06/09/2024 10:39) Wt: 216 lb [97.98 kg] (06/09/2024 10:39) Ht: 70 in [177.8 cm] (06/09/2024 10:39) BMI: 31.1 POX: 95% (06/09/2024 10:39) PERSONAL HEALTH INVENTORY Notes: No data available for PHI note titles PERSONAL HEALTH INVENTORY - MAP: 01/20/2018 Phis What Do You Live For Grandkids, and family,being healthy,to live,my grandsons, kids, and What matters most to you in your life right now? - [place]'s Response: waking up Would you like to discuss any personal problem, family problem, alcohol use, drug use, or a mental or emotional illness? No My [facility] ([facility]), please select appointment type: Face to face: Yes-Do you have an upgraded (Premium) account which gives you the added benefit of Secure Messaging with your Primary Care Provider and refilling your prescriptions online? Contact provided Primary Care phone number and encouraged to call if any questions or concerns. Review that after hours nurse line [phone] and emergency room are available 15/09 for patient use. Contact verbalized good understanding. Suicide Screen - V: C-SSRS Screening [place] Suicide Severity Rating Scale (C-SSRS) screener 1. Over the past month, have you wished you were or wished you could go to sleep and not wake up? No 2. Over the past month, have you had any actual thoughts of killing yourself? No 3. Over the past month, have you been thinking about how you might do this? Response not required due to responses to other questions. 4. Over the past month, have you had these thoughts and had some intention of acting on them? Response not required due to responses to other questions. 5. Over the past month, have you started to work out or worked out the details of how to kill yourself? Response not required due to responses to other questions. 6. If yes, at any time in the past month did you intend to carry out this plan? Response not required due to responses to other questions. 7. In your lifetime, have you ever done anything, started to do anything, or prepared to do anything to end your life (for example, collected pills, obtained a gun, gave away valuables, went to the roof but didn't jump)? No 8. If YES, was this within the past 3 months? Response not required due to responses to other questions. Sexual Orientation - CP,L,N,P,PH,PS,S,U: The patient thinks of their sexual orientation as: Straight or Heterosexual Alcohol Use Screen (AUDIT-C) - V: Alcohol Screen: SCREEN FOR ALCOHOL (AUDIT-C) An alcohol screening test (AUDIT-C) was negative (score=0). 1. How often did you have a drink containing alcohol in the past year? Consider a drink to be a 12 ounce can or bottle of regular beer, 8 ounces of malt liquor, a 5 ounce glass of table wine, or a 1.5 ounce shot of liquor (like scotch, gin, or vodka). Never 2. How many drinks containing alcohol did you have on a typical day when you were drinking in the past year? Response not required due to responses to other questions. 3. How often did you have six or more drinks on one occasion in the past year? Response not required due to responses to other questions. Homelessness/Food Insecurity Screen - DI,L,N,P,PH,PS,S,U: In the past 2 months, have you been living in stable housing that you own, rent, or stay in as part of a household? Yes - Living in stable housing. Are you worried or concerned that in the next 2 months you may NOT have stable housing that you own, rent, or stay in as part of a household? No - Not worried about housing near future The [place] reports the following: Within the past 12 months, you worried whether your food would run out before you got money to buy more. Never true Within the past 12 months, the food you bought just didn't last and you didn't have money to get more. Never true Tobacco Use Screening - AT,DE,L,M,N,P,PH,PS,RT,S,U: The patient is a former cigarette smoker. Quit smoking GREATER THAN OR EQUAL to 15 years. The patient has never used other types of tobacco. Frail/Elderly Screen: ADL Screen - Roger Index of [place] in Activities of Daily Living Bathing: (3 Points) Receives no assistance (gets in and out of tub by self, if tub is usual means of bathing) Dressing: (3 Points) Gets clothes and gets completely dressed without assistance. Toileting: (3 Points) Goes to toilet room, cleans self, and arranges clothes without assistance (may use object for support such as cane, walker, or wheelchair, and may manage own night bedpan or commode, emptying same next morning) Transferring: (3 Points) Moves in and out of bed and in and out of chair without assistance (may be using object for support, such as cane or walker) Continence: (3 Points) Controls urination and bowel movement completely by self Feeding: (3 Points) Feeds self without assistance Total Score: 18 Points 18 = High (patient independent) 6 = Low (patient very dependent) IADL Screen - [place] Instrumental Activities of Daily Living Scale Ability to use telephone: (1 point) Operates Telephone on own initiative; looks up and dials numbers. Shopping: (1 point) Takes care of all shopping needs independently. Food preparation: (1 point) Plans, prepares, and serves adequate meals independently. Housekeeping: (1 point) Maintains house alone with occasional assistance (heavy work). Laundry: (1 point) Does personal laundry completely. Mode of transportation: (1 point) Travels independently on public transportation or drives own car. Responsibility for own medications: (1 point) Is responsible for taking medications in correct dosages at correct times. Ability to handle finances: (1 point) Manages financial matters independently (budgets, writes checks, pays rent and bills, goes to bank); collects and keeps track of income. Total score: 8 points 8 = High function, independent 0 = Low function, dependent Falls Screen: No falls within the past 12 months. Incontinence Screen: No incontinence. /primo/ HINA CLARK LPN LICENSED PRACTICAL NURSE Signed: 06/09/2024 10:45 HINA CLARK [facility]
--- OUTSIDE RECORDS SUMMARY | 2024-09-23 08:10 | XMS_ITS | Encounter Summary ---
Author Organization [facility] Healthcare Address [address] [place] [address] Care Team Providers Care Purification Operator Helper Name Role Phone Bernardo Rose MD Primary Care Provider Encounter Details Date Type Department Care Team (Late st Contact Info) Description 10/07/2023 Orders Only [facility] Health Information Management [address] [place] [id number] Scanning, Provider Social History Tobacco Use Types Packs/Day Years [...] Priority Date/Time Associated Diagnosis Comments SCAN - LABS 10/07/2023 documented in this encounter Results * SCAN - LABS (10/07/2023) us Provider Scanning Final Result documented in this encounter Visit Diagnoses Not on filedocumented in this encounter Care Teams Purification Operator Helper Relationship Specialty Start Date End Date Bernardo Rose MD [address] [facility] [address] [place] [address] PCP - General Family Medicine 01/26/18 documented as of this encounter
--- OUTSIDE RECORDS SUMMARY | 2024-09-23 08:10 | XMS_ITS | Referral Summary ---
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 Name Role Phone Bernardo Rose MD Primary Care Provider Encounters Date Type Department Care Team Description 09/06/2024 10:30 AM CDT Office Visit [facility] Cardiology [address] [facility] [address] [place] [address] Neil Arias MD Chronic systolic CHF (congestive heart failure) (HCC) (Primary Dx); Hyperlipidemia associated with type 2 diabetes mellitus (HCC); Hypertension associated with diabetes (HCC); Infrarenal abdominal aortic aneurysm (AAA) without rupture; S/P mitral valve repair; Status post mitral valve repair 07/27/2024 Orders Only [facility] at [address] [place] [address] Baltazar Parker MD Aftercare following surgery of the circulatory system (Primary Dx) 07/27/2024 9:45 AM CDT Office Visit [facility] at [address] [place] [address] Baltazar Parker MD Infrarenal abdominal aortic aneurysm (AAA) without rupture (Primary Dx) from Last 3 Months Allergies No known active allergies Medications fluticasone (FLONASE) 50 mcg/actuation nasal spray Administer 2 sprays into each nostril daily Active levothyroxine (SYNTHROID) 137 mcg tablet Take 1 tablet (137 mcg total) by mouth top installer before breakfast Active montelukast (SINGULAIR) 10 mg tablet Take 1 tablet (10 mg total) by mouth nightly Active rivaroxaban (XARELTO) 20 mg tablet Take 1 tablet (20 mg total) by mouth every evening Active sertraline (ZOLOFT) 100 mg tablet Take [...] acid (VITAMIN C) 1,000 mg tablet Take 1 tablet (1,000 mg total) by mouth 2 (two) times a day Active amLODIPine (NORVASC) 5 mg tablet Take 1 tablet (5 mg total) by mouth daily 9 Active furosemide (LASIX) 20 mg tabletIndicatio ns:Hypertension associated with diabetes (HCC) Take 1 tablet (20 mg total) by mouth daily 90 tablet 2 1 Active Additional Information Patient taking differently:20 mg oralEvery morning, Reported on 09/06/2024 atorvastatin (LIPITOR) 80 mg tablet Take 0.5 tablets (40 mg total) by mouth nightly Active metoprolol tartrate (LOPRESSOR) 50 mg immediate release tablet Take 0.5 tablets (25 mg total) by mouth 2 (two) times a day Active sacubitriL-vals edna (ENTRESTO) 97-103 mg tabletIndicatio ns:chronic heart failure Take 0.5 tablets by mouth 2 (two) times a day Active fluticasone propion-salmete roL (Wixela Inhub) 250-50 mcg/dose diskus inhaler Inhale 1 puff 2 (two) times a day Rinse mouth with water after use. Do not swallow. Active oxyCODONE (ROXICODONE) 5 mg immediate release tabletIndicatio ns:Pain Take 1 tablet (5 mg total) by mouth every 6 (six) hours as needed for pain 30 tablet 5 Active Active Problems Problem Noted Date Diagnosed Date AAA (abdominal aortic aneurysm) without rupture 05/09/2024 Assessment & Plan (07/29/2024 12:06 PM CDT): Status post EVAR, done extremely well since surgery. Patent endograft with no evidence of endoleak. Follow up in 1 year with repeat CTA abdomen pelvis. Infrarenal abdominal aortic aneurysm (AAA) witho ut rupture 04/15/2024 Assessment & Plan (05/27/2024 1:53 PM CDT): Follow-up in 1-2 weeks with a left groin duplex to rule out pseudoaneurysms versus hematoma. Then can follow-up in 1 month with a CTA abdomen and pelvis. Assessment & Plan (04/28/2024 2:27 PM LEARNING SUPPORT SPECIALIST): 7 cm AAA, appears to be an endovascular candidate. Risks benefits alternatives to endovascular abdominal aortic aneurysm repair were discussed with the patient and his , risks including bleeding, infection, perforation, contrast induced nephropathy, dissection, thrombosis, distal embolization, renal failure, mesenteric ischemia ischemia to the pelvis lower extremities, [place] stroke and . He wished proceed. Assessment & Plan (04/15/2024 10:43 AM LEARNING SUPPORT SPECIALIST): 7 cm infrarenal abdominal aortic aneurysms, appears to be an endovascular candidate, would like to review further, given his underlying history of CABG and COPD as well as his age would prefer to treat this was an endovascular approach if at all possible. We will follow up in 1-2 weeks to discuss further. We will need pulmonology evaluation as well as cardiac risk assessment. Cardiomyopathy, ischemic 11/13/2021 Chronic systolic CHF (congestive heart failure) 11/13/2021 Ascending aortic aneurysm 01/10/2020 Assessment & Plan (03/29/2024 9:34 AM LEARNING SUPPORT SPECIALIST): 7 cm AAA on aortoiliac duplex. CTA abdomen pelvis ordered further evaluation. Continue ASA statin therapy. Status post mitral valve repair 06/24/2018 Hx of CABG 06/24/2018 S/P left atrial appendage ligation 06/24/2018 Hyperglycemia 05/24/2018 Mitral valve insufficiency 04/13/2018 Overview (04/13/2018): Added automatically from request for surgery [id number] Persistent atrial fibrillation 01/26/2018 CAD (coronary artery disease) 01/26/2018 Obstructive sleep apnea 01/26/2018 Mitral valve prolapse 01/26/2018 Non-rheumatic mitral regurgitation 01/26/2018 Hypertension associated with diabetes 01/26/2018 Assessment & Plan (04/28/2024 2:27 PM LEARNING SUPPORT SPECIALIST): Stable continue metoprolol Assessment & Plan (04/15/2024 10:44 AM LEARNING SUPPORT SPECIALIST): Stable continue metoprolol Assessment & Plan (03/29/2024 9:34 AM LEARNING SUPPORT SPECIALIST): Stable continue amlodipine Hyperlipidemia associated with type 2 diabetes m ellitus 01/26/2018 Assessment & Plan (04/15/2024 10:44 AM LEARNING SUPPORT SPECIALIST): Stable continue Lipitor Hyperlipidemia LDL goal <70 01/26/2018 Assessment & Plan (04/28/2024 2:27 PM LEARNING SUPPORT SPECIALIST): Stable continue Lipitor Assessment & Plan (03/29/2024 9:34 AM LEARNING SUPPORT SPECIALIST): Stable continue Lipitor Pulmonary emphysema 01/26/2018 Social History Tobacco Use Types Packs/Day Years Used Date Smoking Tobacco: Former Cigarettes Q uit: 01/27/2004 Smokeless Tobacco: Never Tobacco Cessation:Counseling Given: Not Answered Alcohol Use Standard Drinks/Week Comments No 0 (1 standard drink = 0.6 oz pur e alcohol) [facility] Utilities Answer Date Recorded In the past 12 months has e [employer], gas, oil, or water [employer] threatened to shut off services in your home? No 05/09/2024 Social Connection and Isolat ion Panel [NHANES] Answer Date Recorded In a typical week, how many times do you talk on the phone with family, friends, or neighbors? More than three times a week 05/09/2024 How often do you get togethe r with friends or relatives? More than three times a week 05/09/2024 How often do you attend chur ch or confucianism services? Never 05/09/2024 Do you belong to any clubs o r organizations such as jew groups, unions, fraternal or athletic groups, or school groups? No 05/09/2024 How often do you attend meet ings of the clubs or organizations you belong to? Never 05/09/2024 Are you , , di vorced, , never , or living with a partner? 05/09/2024 AUDIT-C Answer Date Recorded Q1: How often do you have a drink containing alcohol? Never 05/09/2024 Q2: How many drinks containi ng alcohol do you have on a typical day when you are drinking? Patient does not drink Q3: How often do you have si x or more drinks on one occasion? Never 05/09/2024 Overall Financial Resource Strain (CARDIA) Answe r Date Recorded How hard is it for you to pa y for the very basics like food, housing, medical care, and heating? Not hard at all 05/09/2024 Hunger Vital Sign Answer Date Recorded Within the past 12 months, y ou worried that your food would run out before you got the money to buy more. Never true 05/10/19 25 Within the past 12 months, t he food you bought just didn't last and you didn't have money to get more. Never true 05/09/2024 PRAPARE - Transportation Answer Date Re corded In the past 12 months, has l ack of transportation kept you from medical appointments or from getting medications? No 04/23 In the past 12 months, has l ack of transportation kept you from meetings, work, or from getting things needed for daily living? No 05/09/2024 Housing Stability Vital Sign Answer Leland e Recorded In the last 12 months, was t here a time when you were not able to pay the mortgage or rent on time? No 05/09/2024 In the past 12 months, how m any times have you moved where you were living? 0 05/09/2024 At any time in the past 12 m [facility], were you homeless or living in a senior care (including now)? No 05/09/2024 Personal Safety Answer Date Recorded Have you ever been in or are you currently in a harmful physical or emotional relationship or is someone making you feel afraid or unsafe? Denies 05/09/2024 Sex and Gender Information Value Date Recorded Sex Assigned at Not on file Legal Sex Male 2:02 PM CDT Gender Identity Not on file Sexual Orientation Not on file Last Filed Vital Signs Vital Sign Reading Time Taken Comments Blood Pressure 120/74 09/06/2024 10:47 AM CDT Pulse 65 09/06/2024 10:47 AM CDT Temperature 36.8 C (98.2 F) 05/10/2024 7:47 AM CDT Respiratory Rate 18 05/10/2024 7:47 AM CDT Oxygen Saturation 93% 09/06/2024 10:47 AM CDT Inhaled Oxygen Concentration - - Weight 97.5 kg (215 lb) 09/06/2024 10:47 AM CDT Height 177.8 cm (5' 10) 09/06/2024 10:47 AM CDT Body Mass Index 30.85 09/06/2024 10:47 AM CDT Plan of Treatment Not on file Medical Devices Implanted Type Area Hamper Maker Machine Device Identifier Shelf Expiration Date Model / Serial / Lot [employer] Trunk Endoprosthesis Aaa Conformable Ipsilateral Leg Excluder [id number] 4cm [id number] - [id number] - [id number] Implanted:Qty: 1 on 05/09/2024 by Baltazar Parker MD at [facility] Graft Right: Abdominal Aorta [employer] [id number] 10/16/2026 [id number] / [id number] / [employer] [place] Excluder 20mm 16.5-18.5mm 11.5cm Sinusoidal Stent Seal [id number] - [id number] - [id number] Implanted:Qty: 1 on 05/09/2024 by Baltazar Parker MD at [facility] Graft Left: Iliac [employer] [id number] 10/03/2026 [id number] / [id number] / [employer] Excluder 16mm 13.5-14.5mm 9.5cm Stent Abrasion Resistant [id number] - [id number] - [id number] Implanted:Qty: 1 on 05/09/2024 by Baltazar Parker MD at [facility] Graft Right: Iliac [employer] [id number] 02/07/2027 [id number] / [id number] / [employer] V[employer] System Closure Repair Femoral Artery Suture Mediated Perclose Prostyle 65014-20 - [id number] Implanted:Qty: 2 on 05/09/2024 by Baltazar Parker MD at [facility] Other - see comments Left: Femoral [employer] 01/22/2026 [id number] / / [id number] [employer] System Closure Repair Femoral Artery Suture Mediated Perclose Prostyle 56855-37 - [id number] Implanted:Qty: 2 on 05/09/2024 by Baltazar Parker MD at [facility] Other - see comments [employer] 01/22/2026 [id number] / / [id number] At[employer] Atriclip Implanted:Qty: 1 on 05/24/2018 by Chun Santiago MD at [facility] N/A: Heart At[employer] 02/23/2021 [id number] / / [id number] Description:Left atrial appe ndage [employer] [id number] Jose Rainey Imr [employer] 32mm 3d Reduced Curvature - [id number] - [id number] Implanted:Qty: 1 on 05/24/2018 by Chun Santiago MD at [facility] N/A: Heart [employer] [id number] 06/05/2020 [id number] / [id number] / Procedures Procedure Name Priority Date/Time Associated Diagnosis Comments CTA ABDOMEN PELVIS W WO CONTRAST Schedule Routine, Read Routine (OP Routine) 06/09/2024 1:12 PM CDT Aftercare following surgery of the circulatory system EGFR Routine 05/10/2024 6:15 AM CDT HEMOGLOBIN A1C Routine 05/02/2024 11:37 AM CDT Preop testing POCT LIPID PANEL Routine 06/26/2023 11:1 3 AM CDT Lipid screening from Last 3 Months or Most Recently Relevant to Health Maintenance Results * CTA Abdomen Pelvis (06/09/2024 1:12 PM CDT) Anatomical Region Laterality Modality Body N/A Computed Tomogra phy 06/20/2024 9:22 AM CDT Narrative 06/20/2024 9:33 AM CDT EXAM DESCRIPTION: CTA ABDOMEN PELVIS REASON FOR STUDY: Infrarenal AAA Infrarenal abdominal aortic aneurysm (AAA) without rupture, since 2019 TECHNIQUE: CTA scan of the abdomen and pelvis performed without and with intravenous and without oral contrast using helical scanning technique with dynamic intravenous contrast injection. Precontrast, arterial, and portal venous phase images of the abdomen and pelvis were acquired. Delayed images of the abdomen were also provided. Images reviewed with lung, soft tissue and bone windows. Reconstructed coronal and sagittal MPR images reviewed. All images stored on PACS. 3D MIP images rendered on scanning unit and reviewed at time of interpretation. Automated exposure control was used as a dose optimization technique for this examination. CONTRAST TYPE/DOSE: 95mL of IOVERSOL 350 MG IODINE/ML INTRAVENOUS SYRINGE injected via intravenous COMPARISON: CTA 04/07/2024 FINDINGS: VASCULATURE: Atherosclerotic vascular calcification of the coronary arteries, aorta, and branches. No dissection, intramural hematoma, rupture, or penetrating atherosclerotic ulcer. No large vessel occlusion. CELIAC TRUNK: No flow limiting stenosis, dissection, or aneurysm. SUPERIOR MESENTERIC ARTERY: No flow limiting stenosis, dissection, or aneurysm. RIGHT RENAL ARTERY: No flow limiting stenosis, dissection, or aneurysm. LEFT RENAL ARTERY: No flow limiting stenosis, dissection, or aneurysm. INFERIOR MESENTERIC ARTERY: No flow limiting stenosis, dissection, or aneurysm. AORTA: Redemonstration of infrarenal abdominal aortic aneurysm status post endovascular aorto bi-iliac stent graft repair. Patent and stable stent. The excluded aneurysmal sac measures 7.3 x 6.2 in transverse X AP dimensions (5/133, 7/111, 8/70), previously 7.2 x 6.3 cm when measured similarly. There is no evidence of endoleak. No flow-limiting stenosis. ILIAC ARTERIES: Left common iliac artery measuring 2.1 cm, stable (5/171). No flow limiting stenosis, dissection, or aneurysm. LOWER CHEST: Bilateral emphysema. Bibasilar atelectasis. No effusion. LIVER: Normal size. No identified cystic or solid masses. GALLBLADDER: Stones. No wall thickening or pericholecystic fluid BILE DUCTS: No intrahepatic or extrahepatic ductal dilatation. SPLEEN: Normal size. No focal lesions. PANCREAS: No identified cystic or solid masses. No significant calcifications. No adjacent inflammation or peripancreatic fluid collections. Pancreatic duct not dilated. ADRENALS: Normal. KIDNEYS/URINARY TRACT: No identified significant cystic or solid masses. No stones. No hydronephrosis or hydroureter. Symmetric enhancement. Normal bladder. GI: No dilated bowel loops. No obvious wall thickening. Normal appendix. No significant diverticular disease. PERITONEUM: No ascites or free air. RETROPERITONEUM: No mass or adenopathy. REPRODUCTIVE: Enlarged prostate measuring 5.0 cm. MUSCULOSKELETAL: No significant abnormality. OTHER: No other abnormality. IMPRESSION: Infrarenal abdominal aortic aneurysm status post endovascular stent graft repair. Excluded aneurysmal sac remains overall stable in size without evidence of endoleak. Stable ectatic left common iliac artery. No acute findings THIS IS AN ELECTRONICALLY VERIFIED FINAL REPORT 06/20/2024 9:33 AM - Electronically signed by Lilian Ramirez M.D. FT T: Report ID: [id number] Reading Location: [id number] Procedure Note Lilian Guerrero MD - 06/20/2024 EXAM DESCRIPTION: CTA ABDOMEN PELVIS REASON FOR STUDY: Infrarenal AAA Infrarenal abdominal aortic aneurysm (AAA) without rupture, since 2019 TECHNIQUE: CTA scan of the abdomen and pelvis performed without and with intravenous and without oral contrast using helical scanning techniquewith dynamic intravenous contrast injection. Precontrast, arterial, and portal venous phase images of the abdomen and pelvis were acquired. Delayedimages of the abdomen were also provided. Images reviewed with lung, soft tissueand bone windows. Reconstructed coronal and sagittal MPR images reviewed. All images stored on PACS. 3D MIP images rendered on scanning unit andreviewed at time of interpretation. Automated exposure control was used as a dose optimization technique for this examination. CONTRAST TYPE/DOSE: 95mL of IOVERSOL 350 MG IODINE/ML INTRAVENOUSSYRINGE injected via intravenous COMPARISON: CTA 04/07/2024 FINDINGS: VASCULATURE: Atherosclerotic vascular calcification of the coronary arteries, aorta, and branches. No dissection, intramuralhematoma, rupture, or penetrating atherosclerotic ulcer. No large vesselocclusion. CELIAC TRUNK: No flow limiting stenosis, dissection, or aneurysm. SUPERIOR MESENTERIC ARTERY: No flow limiting stenosis, dissection, or aneurysm. RIGHT RENAL ARTERY: No flow limiting stenosis, dissection, or aneurysm. LEFT RENAL ARTERY: No flow limiting stenosis, dissection, or aneurysm. INFERIOR MESENTERIC ARTERY: No flow limiting stenosis, dissection, or aneurysm. AORTA: Redemonstration of infrarenal abdominal aortic aneurysm statuspost endovascular aorto bi-iliac stent graft repair. Patent and stable stent.The excluded aneurysmal sac measures 7.3 x 6.2 in transverse X AP dimensions (5/133, 7/111, 8/70), previously 7.2 x 6.3 cm when measured similarly.There is no evidence of endoleak. No flow-limiting stenosis. ILIAC ARTERIES: Left common iliac artery measuring 2.1 cm, stable(5/171). No flow limiting stenosis, dissection, or aneurysm. LOWER CHEST: Bilateral emphysema. Bibasilar atelectasis. No effusion. LIVER: Normal size. No identified cystic or solid masses. GALLBLADDER: Stones. No wall thickening or pericholecystic fluid BILE DUCTS: No intrahepatic or extrahepatic ductal dilatation. SPLEEN: Normal size. No focal lesions. PANCREAS: No identified cystic or solid masses. No significant calcifications. No adjacent inflammation or peripancreatic fluidcollections. Pancreatic duct not dilated. ADRENALS: Normal. KIDNEYS/URINARY TRACT: No identified significant cystic or solid masses.No stones. No hydronephrosis or hydroureter. Symmetric enhancement. Normal bladder. GI: No dilated bowel loops. No obvious wall thickening. Normalappendix. No significant diverticular disease. PERITONEUM: No ascites or free air. RETROPERITONEUM: No mass or adenopathy. REPRODUCTIVE: Enlarged prostate measuring 5.0 cm. MUSCULOSKELETAL: No significant abnormality. OTHER: No other abnormality. IMPRESSION: Infrarenal abdominal aortic aneurysm status post endovascular stent graft repair. Excluded aneurysmal sac remains overall stable in size without evidence of endoleak. Stable ectatic left common iliac artery. No acute findings THIS IS AN ELECTRONICALLY VERIFIED FINAL REPORT 06/20/2024 9:33 AM - Electronically signed by Lilian Ramirez M.D. FT T: Report ID: [id number] Reading Location: [place] [address] Baltazar Parker MD IMG CT PROCEDURES Final Result * eGFR (05/10/2024 6:15 AM CDT) eGFR 73 >=60 mL/min/1. 73 m2 Comment: Interpretive Data Reference Interval Normal >/= 90 mL/min/1.73m2 Mildly decreased* 60 - 89 mL/min/1.73m2 Mildly to moderately decreased 45 - 59 mL/min/1.73m2 Moderately to severely decreased 30 - 44 mL/min/1.73m2 Severely decreased 15 - 29 mL/min/1.73m2 Kidney Failure < 15 mL/min/1.73m2 *Relative to young adult level Estimated glomerular filtration rate is determined by the 2020 CKD-EPI equation recommended by the National Kidney Foundation (A Unifying Approach to GFR Estimation: Recommendations of the NKF-ASK Task Force on Reassessing the Inclusion of Race in Diagnosing Kidney Disease, JASN 2020). The CKD-EPI equation should not be used for patients with unstable renal function and has not been validated in children and those over 70. Current interpretive data was last reviewed 2020. Blood 05/10/2024 6:15 AM CDT 05/10/2024 6:34 AM CDT Baltazar Parker MD LAB BLOOD ORDERABLES Final Resul t [facility] [address] [facility] Department of Laboratories [place], [place] [id number] * (ABNORMAL) Hemoglobin A1c (05/02/2024 11:37 AM CDT) Hgb A1C 6.2(H) 4.0 - 5.6 % Estimated Average Glucose 131 mg/dL [facility]DERA Comment: The ADA recommends reporting an estimated Average Glucose (eAG) with all Hemoglobin A1c results using the equation derived from a study of 507 normal and diabetic adults. Minority populations were underrepresented and children were not included. (Diabetes Care 31:8120-4405, 2008). The eAG is not equivalent to a fasting glucose. Blood 05/02/2024 11:3 7 AM CDT 05/02/2024 11:44 AM CDT us Renea Myers NP LAB BLOOD ORDERABLES Final Result [facility] [address] [facility] [place] [address] * POCT lipid panel (06/26/2023 11:13 AM CDT) Cholesterol, POC <100 mg/dL HDL, POC 21 mg/dL Triglycerides, POC 94 mg/dL LDL Cholesterol POC 60 mg/dL Chol/HDL Ratio, POC N/A Non-HDL Cholesterol, POC N/A mg/dL Cholesterol Total, POC <100 mg/dL Capillary blood 06/26/2023 1 1:13 AM CDT Neil Arias MD POINT OF CARE TEST ORDERA BLES Edited Result - Final from Last 3 Months or Most Recently Relevant to Health Maintenance Insurance MEDICARE MEDICARE BLUE CROSS MEDICARE SUPPLEMENT MEDICARE [facility] MEDICARE [facility] MEDICARE SUPPLEMENT Advance Directives For more information, please contact: [phone] * Full Code (Latest Code Status on File) Date Activated Date Inactivated Comments 05/09/2024 1:16 PM 05/10/2024 5:01 PM * Full Code Date Activated Date Inactivated Comments 06/02/2018 8:06 PM 05/09/2024 8:04 AM * Full Code Date Activated Date Inactivated Comments 05/24/2018 4:29 PM 05/31/2018 7:15 PM Care Teams Rotary Shear Worker Helper Relationship Specialty Start Date End Date Bernardo Rose MD [address] [facility] [address] [place] [address] PCP - General Family Medicine 01/26/18
--- OUTSIDE RECORDS SUMMARY | 2024-09-23 08:10 | XMS_ITS | Clinical Summary ---
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 Gender Identity Not on file Sexual Orientation Not on file Plan of Treatment Health Maintenance Due Date Last Done Comments Hepatitis C 1966 DTaP, Tdap and Td Vaccines ( 1 - Tdap) 09/03/1967 Pneumococcal Vaccine: 50+ Ye ars (1 of 1 - PCV) 1998 Zoster Vaccines (1 of 2) 1998 Annual Medicare Wellness Visit 2013 RSV Immunization or 60+ Years (1 - 1-dose 75+ series) 09/03/2023 COVID-19 Vaccine ( - 2023-2 5 season) 2023 Meningococcal B Vaccine Aged Out No l onger eligible based on patient's age to complete this topic Meningococcal Vaccine Aged Out No ramez princess eligible based on patient's age to complete this topic RSV Immunizations Under 20 Months Aged Out No longer eligible based on patient's age to complete this topic Insurance MEDICARE [facility] Care Teams Etymology Professor Relationship Specialty Start Date End Date Bernardo Rose MD [address] [place] [address] PCP - General FAMILY PRACTICE 09/17/21
--- OUTSIDE RECORDS SUMMARY | 2024-09-23 08:10 | XMS_ITS | Clinical Summary ---
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 Assessment & Plan (04/28/2024 2:27 PM QUALITY CONTROL SPECIALIST): 7 cm AAA, appears to be an endovascular candidate. Risks benefits alternatives to endovascular abdominal aortic aneurysm repair were discussed with the patient and his , risks including bleeding, infection, perforation, contrast induced nephropathy, dissection, thrombosis, distal embolization, renal failure, mesenteric ischemia ischemia to the pelvis lower extremities, [place] stroke and . He wished proceed. Assessment & Plan (04/15/2024 10:43 AM QUALITY CONTROL SPECIALIST): 7 cm infrarenal abdominal aortic aneurysms, [...] 01/10/2020 Assessment & Plan (03/29/2024 9:34 AM QUALITY CONTROL SPECIALIST): 7 cm AAA on aortoiliac duplex. CTA abdomen pelvis ordered further evaluation. Continue ASA statin therapy. Status post mitral valve repair 06/24/2018 Hx of CABG 06/24/2018 S/P left atrial appendage ligation 06/24/2018 Hyperglycemia 05/24/2018 Mitral valve insufficiency 04/13/2018 Overview (04/13/2018): Added automatically from request for surgery [id number] Persistent atrial fibrillation 01/26/2018 CAD (coronary artery disease) 01/26/2018 Obstructive sleep apnea 01/26/2018 Mitral valve prolapse 01/26/2018 Non-rheumatic mitral regurgitation 01/26/2018 Hypertension associated with diabetes 01/26/2018 Assessment & Plan (04/28/2024 2:27 PM QUALITY CONTROL SPECIALIST): Stable continue metoprolol Assessment & Plan (04/15/2024 10:44 AM QUALITY CONTROL SPECIALIST): Stable continue metoprolol Assessment & Plan (03/29/2024 9:34 AM QUALITY CONTROL SPECIALIST): Stable continue amlodipine Hyperlipidemia associated with type 2 diabetes m ellitus 01/26/2018 Assessment & Plan (04/15/2024 10:44 AM QUALITY CONTROL SPECIALIST): Stable continue Lipitor Hyperlipidemia LDL goal <70 01/26/2018 Assessment & Plan (04/28/2024 2:27 PM QUALITY CONTROL SPECIALIST): Stable continue Lipitor Assessment & Plan (03/29/2024 9:34 AM QUALITY CONTROL SPECIALIST): Stable continue Lipitor Pulmonary emphysema 01/26/2018 Encounters Date Type Department Care Team Description 09/06/2024 10:30 AM CDT Office Visit [facility] Card[facility] [address] [place] [address] Neil Arias MD Chronic systolic CHF (congestive heart failure) (HCC) (Primary Dx); Hyperlipidemia associated with type 2 diabetes mellitus (HCC); Hypertension associated with diabetes (HCC); Infrarenal abdominal aortic aneurysm (AAA) without rupture; S/P mitral valve repair; Status post mitral valve repair 07/27/2024 9:45 AM CDT Office Visit [facility] V[facility] at [address] [place] [address] Baltazar Parker MD Infrarenal abdominal aortic aneurysm (AAA) without rupture (Primary Dx) 07/27/2024 Orders Only [facility] at [address] [place] [address] Baltazar Parker MD Aftercare following surgery of the circulatory system (Primary Dx) from Last 3 Months Surgical History Surgery Date Site/Laterality Comments BASAL CELL CARCINOMA EXCISION 02/23/2017 - 02/22/2018 nose UMBILICAL HERNIA REPAIR 02/24/2004 - 02/22/2005 VASECTOMY 02/23/1978 - 02/22/1979 CORONARY ARTERY BYPASS GRAFT 02/23/2018 - 02/22/2019 X 2 with MVR Medical History Medical History Date Comments Hypertension Myocardial infarction (HCC) 1992 Atrial fibrillation (HCC) Hyperlipidemia Sleep apnea COPD (chronic obstructive pulmonary disease) Coronary artery disease Hypothyroidism Depression Emphysema of lung Basal cell carcinoma Cataract CHF (congestive heart failure) (HCC) Asthma Emphysema lung History of agent [place] exposure AAA (abdominal aortic aneurysm) Family History Medical History Relation Name Comments Heart disease Father Luzma Pinto Dementia Mother Other Sister 1 No Known Problems Sister 2 Relation Name Status Comments Father Luzma Alcarazt (Age 68) Mother (Age 84) COD overdo se Sister 1 (Age 67) Sister 2 Alive Social History Tobacco Use Types Packs/Day Years Used Date Smoking Tobacco: Former Cigarettes Q uit: 01/27/2004 Smokeless Tobacco: Never Tobacco Cessation:Counseling Given: Not Answered Alcohol Use Standard Drinks/Week Comments No 0 (1 standard drink = 0.6 oz pur e alcohol) [facility] Utilities Answer Date Recorded In the past 12 months has e SCL, gas, oil, or water dooyoo threatened to shut off services in your [...] often do you attend chur ch or congregation services? Never 05/09/2024 Do you belong to any clubs o r organizations such as baptist groups, unions, fraternal or athletic groups, or [...] any time in the past 12 m [facility], were you homeless or living in a intermediate (including now)? No 05/09/2024 Personal Safety Answer [...] 09/06/2024 10:47 AM CDT Plan of Treatment Health Maintenance Due Date Last Done Comments Albumin Creatinine Ratio, Urine 1950 Depression Screening 1950 Hepatitis C Screening 1950 Dilated Eye Exam 1948 Foot Exam 1948 DTaP/Tdap/Td Vaccine (1 - Tdap) 09/03/1959 Hepatitis B Screening 1966 Well Visit 65+ 2013 Covid-19 Vaccine (4 - 2023-2 5 season) 2023 01/08/2021, 04/03/2020, 03/08/2020 Lipid Panel 06/25/2024 06/26/2023, 07/25, 08/21/2021, Additional history exists Influenza Vaccine (#1) 2024 , 12/09/2019, 11/23/2018, Additional history exists Hemoglobin A1C 11/02/2024 05/02/2024 Fall Risk Assessment 05/10/2025 05/10/2024 eGFR 05/10/2025 05/10/2024, 04/23, 05/31/2018, Additional history exists Zoster Vaccine Completed 10/06/2017, 06/24/2017 Pneumococcal vaccine 65+ Completed 01/20/2018, 04/2016 Abdominal Aortic Aneurysm (A AA) Screen Completed 09/06/2024, 07/27/2024, 06/09/2024, Additional history exists Medical Devices Implanted Type Area Roof Bolter Helper Device Identifier Shelf Expiration Date Model / Serial / Lot [employer] Trunk Endoprosthesis Aaa Conformable Ipsilateral Leg Excluder [id number] 4cm [id number] - [id number] - [id number] Implanted:Qty: 1 on 05/09/2024 by Baltazar Parker MD at [facility] Graft Right: Abdominal Aorta [employer] [id number] 10/16/2026 [id number] / [employer] Happy-[place] Excluder 20mm 16.5-18.5mm 11.5cm Sinusoidal Stent Seal [id number] - [id number] - [id number] Implanted:Qty: 1 on 05/09/2024 by Baltazar Parker MD at [facility] Graft Left: Iliac [employer] [id number] 10/03/2026 [id number] / [employer] Excluder 16mm 13.5-14.5mm 9.5cm Stent Abrasion Resistant [id number] - [id number] - [id number] Implanted:Qty: 1 on 05/09/2024 by Baltazar Parker MD at [facility] Graft Right: Iliac [employer] [id number] 02/07/2027 [id number] / [id number] / [employer] V[employer] System Closure Repair Femoral Artery Suture Mediated Perclose Prostyle 65578-99 - [id number] Implanted:Qty: 2 on 05/09/2024 by Baltazar Parker MD at [facility] Other - see comments Left: Femoral [employer] 01/22/2026 [id number] / / [id number] [employer] System Closure Repair Femoral Artery Suture Mediated Perclose Prostyle 15672-22 - [id number] Implanted:Qty: 2 on 05/09/2024 by Baltazar Parker MD at [facility] Other - see comments [employer] 01/22/2026 32597-2 3 / / [id number] [employer] Atriclip Implanted:Qty: 1 on 05/24/2018 by Chun Santiago MD at [facility] N/A: Heart [employer] 02/23/2021 [id number] / / [id number] Description:Left atrial appe ndage [employer] [id number] Ashley-Beatriz weaver-Harvey Imr Et[employer]ix 32mm 3d Reduced Curvature - [id number] - [id number] Implanted:Qty: 1 on 05/24/2018 by Chun Santiago MD at [facility] N/A: Heart [employer] [id number] 06/05/2020 [id number] / [id number] / Procedures Procedure Name Priority Date/Time Associated [...] Lilian Ramirez M.D. FT T: Report ID: [id number] Reading Location: [id number] Procedure Note Lilain Guerrero MD - 06/20/2024 EXAM DESCRIPTION: CTA [...] Lilian Ramirez M.D. FT T: Report ID: [id number] Reading Location: [id number] Baltazar Parker MD IMG CT PROCEDURES Final [...] MD LAB BLOOD ORDERABLES Final Resul t [facility] [address] [facility] Department [place] [address] * (ABNORMAL) Hemoglobin A1c (05/02/2024 11:37 AM CDT) Hgb A1C 6.2(H) 4.0 - 5.6 % Estimated Average Glucose 131 mg/dL HARRY CALDERA Comment: The ADA recommends reporting an estimated Average Glucose (eAG) with all Hemoglobin A1c results using the equation derived from a study of 507 normal and diabetic adults. Minority populations were underrepresented and children were not included. (Diabetes Care 31:2362-8248, 2008). The eAG is not equivalent to a fasting glucose. Blood 05/02/2024 11:3 7 AM CDT 05/02/2024 11:44 AM CDT us Renea Myers NP LAB BLOOD ORDERABLES Final Result HARRY [address] [facility] Department [place] [address] * POCT lipid panel (06/26/2023 11:13 AM [...] MEDICARE MEDICARE BLUE CROSS MEDICARE SUPPLEMENT MEDICARE [facility] Member Subscriber Plan / Payer (Ef fective 2013-Present) Name:Fox Weiss Relation to Subscriber:Self Name:IselaFox sanderson Richard Payer ID:[id number] (NAIC) Type:[employer] Address: [address] [place] [id number] MEDICARE [facility] MEDICARE SUPPLEMENT Advance Directives For more information, please contact: [phone] * Full Code (Latest Code Status on File) Date Activated Date Inactivated Comments 05/09/2024 1:16 PM 05/10/2024 5:01 PM * Full Code Date Activated Date Inactivated Comments 06/02/2018 8:06 PM 05/09/2024 8:04 AM * Full Code Date Activated Date Inactivated Comments 05/24/2018 4:29 PM 05/31/2018 7:15 PM Care Teams Acid Conditioning Worker Relationship Specialty Start Date End Date Bernardo Rose MD [address] [address] PCP - General Family Medicine 01/26/18
--- OUTSIDE RECORDS SUMMARY | 2024-09-23 08:10 | XMS_ITS | Continuity of Care Document ---
Author Name [facility] Organization [facility] Care Team Providers Care Relocation Counselor Name Role Phone [facility] Unavailable Unavailable Problems Combined list of problems from Department of Defense and Veterans Affairs facilities. It does not include entries that were removed or entered in error. Problem Status Onset Date Problem Type Date of Resolution Comments Source Abdominal aortic aneurysm without rupture Active Condition Jan 20, 2018 Entered By: JOÃO XIE Comment: 04/2017 4.3 CM AAA per screening u/s perfomed in [place] [facility] 2018 Entered By: JOÃO XIE Comment: 11/2018 4.5 cm AAA per ultrasound performed by [facility] (Dr. Micheal Viveros)Jun 09, 2024 Entered By: JG IRELAND Comment: s/p EVAR 05/09/24 by nonVA Vasc Surg @[facility] Aneurysm of thoracic aorta Active Condition Feb 20, 2019 Entered By: JOÃO XIE Comment: 11/2018 4.9 cm ascending thoracic aortic aneurysm. Followed by Dr. Micheal Viveros,( vascular surgery-[facility]). [facility] Anticoagulant effect Active Condition [facility] Arteriosclerotic heart disease Active Condition Dec 26, 2016 Entered By: DAHIANA MATHIAS Comment: mitral aortic valve disease dilated aortic rootMay 2018 Entered By: JOÃO XIE Comment: Emilee 05/24/18: 2V CABG (SVA-OM, SVA-PDA) and mitral valve repair [facility] Asymptomatic carotid artery stenosis Active Condition [facility] Atrial fibrillation Active Condition [facility] Chronic obstructive lung disease Active Condition [facility] Congestive heart failure Active Condition Nov 25, 2021 Entered By: LIANA GILMORE Comment: EF 35% 08/2021 [facility] Depression Active Condition [facility] Exposure to potentially hazardous substance Active Condition [facility] HT - Hypertension Active Condition [facility] Hyperlipidemia Active Condition [facility] Hypothyroidism (SCT 05827963) Active Condition [facility] Sleep apnea Active Condition Dec 26, 2016 Entered By: DAHIANA MATHIAS Comment: treated with biPAP [facility] Therapeutic drug effect Active Condition [facility] Type 2 diabetes mellitus well controlled Active Condition [facility] Diagnosis: ICD-10-CM Z46.1 Encounter for fitting and adjustment of hearing aid Active Diagnosis [facility] Diagnosis: ICD-10-CM I25.10 Athscl heart disease of [place] coronary artery w/o ang pctrs Active Diagnosis [facility] Diagnosis: ICD-10-CM H90.3 Sensorineural hearing loss, bilateral Active Diagnosis [facility] Diagnosis: ICD-10-CM Z00.00 Encntr for general adult medical exam w/o abnormal findings Active Diagnosis [facility] Diagnosis: ICD-10-CM 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 RESPIR ATORY (INHAL ATION) 10/10/2023 [id number] 4 GILMORE,A RMIDA A 2022 4 [facility] AMLODIPINE BESYLATE 5MG TAB TAKE ONE TABLET BY MOUTH ONCE A DAY FOR HEART/BL OOD PRESSURE ORAL ACTIVE 09/07/2025 [id number] 5 CODYANAY SSA S 2024 90 [facility] AMLODIPINE BESYLATE 5MG TAB TAKE ONE TABLET BY MOUTH ONCE A DAY FOR HEART/BL OOD PRESSURE ORAL DISCONT INUED 09/09/2024 [id number] 5 ANAY ROSS SSA S 2023 90 [facility] AMLODIPINE BESYLATE 5MG TAB TAKE ONE TABLET BY MOUTH ONCE A DAY FOR HEART/BL OOD PRESSURE ORAL DISCONT INUED 10/10/2023 [id number] 4 GIMLORE,A RMIDA A 2022 90 [facility] ASPIRIN 81MG TAB,EC TAKE ONE TABLET BY MOUTH ONCE A DAY ORAL ACTIVE DAYANNA MALIK S 2018 [facility] ATORVASTATI N CA 80MG TAB TAKE ONE-HALF TABLET BY MOUTH EVERY EVENING FOR CHOLESTE ROL. REPORT ANY UNEXPLAI ROBYN MUSCLE PAIN/WEA KNESS TO PROVIDER . ORAL SUSPEND ED 08/23/2025 [id number] 5 CODYANAY SSA S 2024 45 [facility] ATORVASTATI N CA 80MG TAB TAKE ONE-HALF TABLET BY MOUTH EVERY EVENING FOR CHOLESTE ROL. REPORT ANY UNEXPLAI ROBYN MUSCLE PAIN/WEA KNESS TO PROVIDER . ORAL DISCONT INUED 09/09/2024 [id number] 5 CODYANAY SSA S 2023 45 [facility] ATORVASTATI N CA 80MG TAB TAKE ONE-HALF TABLET BY MOUTH EVERY EVENING FOR CHOLESTE ROL. REPORT ANY UNEXPLAI ROBYN MUSCLE PAIN/WEA KNESS TO PROVIDER . ORAL DISCONT INUED 10/10/2023 [id number] 4 GILMORE,A RMIDA A 2022 45 [facility] FLUTICASONE 250MCG/SALM ETEROL 50MCG INHL,ORAL,D ISKUS,60 INHALE 1 PUFF BY ORAL INHALATI ON TWICE A DAY FOR BREATHIN G (OPEN DISKUS; CLICK ONLY ONCE; MAY INHALE TWICE TO COMPLETE DOSE; CLOSE WHEN FINISHED ) RINSE MOUTH AND SPIT AFTER EACH USE. RESPIR ATORY (INHAL ATION) ACTIVE 11/02/2024 [id number] 5 GILMORE,A RMIDA A 2023 3 [facility] FLUTICASONE 250MCG/SALM ETEROL 50MCG INHL,ORAL,D ISKUS,60 INHALE 1 PUFF BY ORAL INHALATI ON TWICE A DAY FOR BREATHIN G (OPEN DISKUS; CLICK ONLY ONCE; MAY INHALE TWICE TO COMPLETE DOSE; CLOSE WHEN FINISHED ) RINSE MOUTH AND SPIT AFTER EACH USE. RESPIR ATORY (INHAL ATION) DISCONT INUED 12/09/2023 [id number] 4 ANAY ROSS SSA S 2023 3 [facility] FLUTICASONE 250MCG/SALM ETEROL 50MCG INHL,ORAL,D ISKUS,60 INHALE 1 PUFF BY ORAL INHALATI ON TWICE A DAY FOR BREATHIN G (OPEN DISKUS; CLICK ONLY ONCE; MAY INHALE TWICE TO COMPLETE DOSE; CLOSE WHEN FINISHED ) RINSE MOUTH AND SPIT AFTER EACH USE. RESPIR ATORY (INHAL ATION) DISCONT INUED 12/08/2023 [id number] 4 ANAY ROSS SSA S 2023 3 [facility] FLUTICASONE 250MCG/SALM ETEROL 50MCG INHL,ORAL,D ISKUS,60 INHALE 1 PUFF BY ORAL INHALATI ON TWICE A DAY FOR BREATHIN G (OPEN DISKUS; CLICK ONLY ONCE; MAY INHALE TWICE TO COMPLETE DOSE; CLOSE WHEN FINISHED ) RINSE MOUTH AND SPIT AFTER EACH USE. RESPIR ATORY (INHAL ATION) DISCONT INUED 11/05/2023 [id number] 4 GILMORE,A RMIDA A 2023 3 [facility] FLUTICASONE PROPIONATE 50MCG/SPRAY SOLN,NASAL, 16GM INSTILL 2 SPRAYS IN EACH NOSTRIL ONCE A DAY FOR ALLERGIE S (MUST BE USED DIRECTED FOR MINIMUM OF 21 DAYS TO PROVIDE ADEQUATE BENEFITS ) NASAL ACTIVE 09/10/2025 [id number] 5 ME COURTNEY TTISA 2024 3 [facility] FLUTICASONE PROPIONATE 50MCG/SPRAY SOLN,NASAL, 16GM INSTILL 2 SPRAYS IN EACH NOSTRIL ONCE A DAY FOR ALLERGIE S (MUST BE USED DIRECTED FOR MINIMUM OF 21 DAYS TO PROVIDE ADEQUATE BENEFITS ) NASAL DISCONT INUED 07/29/2024 [id number] 5 ME COURTNEY TTISA 2023 3 [facility] FUROSEMIDE 20MG TAB TAKE ONE TABLET BY MOUTH EVERY MORNING FOR FLUID RETENTIO N ORAL SUSPEND ED 09/10/2025 [id number] 5 ANAY ROSS S 2024 90 [facility] FUROSEMIDE 20MG TAB TAKE ONE TABLET BY MOUTH EVERY MORNING FOR FLUID RETENTIO N ORAL DISCONT INUED 09/09/2024 [id number] 5 ANAY ROSS SSA S [address] [place] [address] FUROSEMIDE 20MG TAB TAKE ONE TABLET BY MOUTH EVERY MORNING FOR FLUID RETENTIO N ORAL DISCONT INUED 10/10/2023 [id number] 4 GILMORE,A RMIDA A 2022 90 [facility] LEVOTHYROXI NE NA 137MCG TAB TAKE ONE TABLET BY MOUTH EVERY MORNING BEFORE A MEAL FOR THYROID. TAKE 30 MINUTES BEFORE FOOD. TAKE SEPARATE LY FROM ALL OTHER MEDICATI ONS. ORAL ACTIVE 09/07/2025 [id number] 5 ANAY ROSS SSA S 2024 90 [facility] LEVOTHYROXI NE NA 137MCG TAB TAKE ONE TABLET BY MOUTH EVERY MORNING BEFORE A MEAL FOR THYROID. TAKE 30 MINUTES BEFORE FOOD. TAKE SEPARATE LY FROM ALL OTHER MEDICATI ONS. ORAL DISCONT INUED 09/09/2024 [id number] 5 ANAY ROSS SSA S [address] [place] [address] METOPROLOL TARTRATE 50MG TAB TAKE ONE-HALF TABLET BY MOUTH TWICE A DAY FOR HEART/BL OOD PRESSURE . TAKE WITH OR IMMEDIAT SANDEE FOLLOWIN G FOOD. ORAL SUSPEND ED 09/10/2025 [id number] 5 CODYANAY SSA S 2024 90 [facility] METOPROLOL TARTRATE 50MG TAB TAKE ONE-HALF TABLET BY MOUTH TWICE A DAY FOR HEART/BL OOD PRESSURE . TAKE WITH OR IMMEDIAT SANDEE FOLLOWIN G FOOD. ORAL DISCONT INUED 09/09/2024 [id number] 5 CODYSAGEI SSA S 2023 90 [facility] METOPROLOL TARTRATE 50MG TAB TAKE ONE-HALF TABLET BY MOUTH TWICE A DAY FOR HEART/BL OOD PRESSURE . TAKE WITH OR IMMEDIAT SANDEE FOLLOWIN G FOOD. ORAL DISCONT INUED 11/25/2023 [id number] 4 GILMORE,A RMIDA A 2022 90 [facility] MONTELUKAST NA 10MG TAB TAKE ONE TABLET BY MOUTH EVERY EVENING ORAL ACTIVE 09/10/2025 [id number] 5 CODYSAGEI SSA S 2024 90 [facility] MONTELUKAST NA 10MG TAB TAKE ONE TABLET BY MOUTH EVERY EVENING ORAL DISCONT INUED 09/09/2024 [id number] 5 CODYSAGEI SSA S 2023 90 [facility] MONTELUKAST NA 10MG TAB TAKE ONE TABLET BY MOUTH EVERY EVENING ORAL DISCONT INUED 07/16/2023 [id number] 4 GILMORE,A RMIDA A 2022 90 [facility] RIVAROXABAN 20MG TAB TAKE ONE TABLET BY MOUTH EVERY EVENING TO THIN BLOOD. TAKE WITH FOOD. ORAL SUSPEND ED 09/10/2025 [id number] 5 CODYSAGEI SSA S 2024 90 [facility] RIVAROXABAN 20MG TAB TAKE ONE TABLET BY MOUTH EVERY EVENING TO THIN BLOOD. TAKE WITH FOOD. ORAL DISCONT INUED 09/09/2024 [id number] 5 CODYSAGEI SSA S 2023 90 [facility] RIVAROXABAN 20MG TAB TAKE ONE TABLET BY MOUTH EVERY EVENING TO THIN BLOOD. TAKE WITH FOOD. ORAL DISCONT INUED 11/25/2023 [id number] 4 GILMORE,A RMIDA A 2022 90 [facility] SACUBITRIL 97MG/VALSAR LEIGH 103MG TAB TAKE ONE-HALF TABLET BY MOUTH TWICE A DAY FOR HEART ORAL SUSPEND ED 09/10/2025 [id number] 5 CODY,ANAY SSA S 2024 90 [facility] SACUBITRIL 97MG/VALSAR LEIGH 103MG TAB TAKE ONE-HALF TABLET BY MOUTH TWICE A DAY FOR HEART ORAL DISCONT INUED 09/09/2024 [id number] 5 CODY,ANAY SSA S 2023 90 [facility] SACUBITRIL 97MG/VALSAR LEIGH 103MG TAB TAKE ONE-HALF TABLET BY MOUTH TWICE A DAY FOR HEART ORAL DISCONT INUED 10/10/2023 [id number] 4 GILMORE,A RMIDA A 2022 90 [facility] SALIVA,ALMAZ FICIAL SPRAY,ORAL TAKE 3-5 SPRAYS BY MOUTH EVERY TWO HOURS NEEDED TO RELIEVE DRY MOUTH AND THROAT. ORAL ACTIVE 09/10/2025 [id number] 5 CODY,ANAY SSA S 2024 240 [facility] SALIVA,ALMAZ FICIAL SPRAY,ORAL TAKE 3-5 SPRAYS BY MOUTH EVERY TWO HOURS NEEDED TO RELIEVE DRY MOUTH AND THROAT. ORAL DISCONT INUED 09/09/2024 [id number] 5 CODY,ANAY SSA S 2023 236 [facility] SERTRALINE HCL 100MG TAB TAKE ONE TABLET BY MOUTH EVERY MORNING FOR MOOD ORAL SUSPEND ED 09/10/2025 [id number] 5 CODY,ANAY SSA S 2024 90 [facility] SERTRALINE HCL 100MG TAB TAKE ONE TABLET BY MOUTH EVERY MORNING FOR MOOD ORAL DISCONT INUED 09/09/2024 [id number] 5 CODY,ANAY SSA S 2023 90 [facility] SERTRALINE HCL 100MG TAB TAKE ONE TABLET BY MOUTH EVERY MORNING FOR MOOD ORAL DISCONT INUED 11/25/2023 [id number] 4 GILMORE,A RMIDA A 2022 90 [facility] TIOTROPIUM 2.5MCG/ACTU AT INHL,ORAL,6 0D,4GM INHALE 2 INHALATI ONS BY ORAL INHALATI ON ONCE A DAY (ADMINIS TER AT SAME TIME EACH DAY) FOR BREATHIN G. RESPIR ATORY (INHAL ATION) ACTIVE 09/10/2025 [id number] 5 COURTNEYKY TTISA 2024 3 [facility] TIOTROPIUM 2.5MCG/ACTU AT INHL,ORAL,6 0D,4GM INHALE 2 INHALATI ONS BY ORAL INHALATI ON ONCE A DAY (ADMINIS TER AT SAME TIME EACH DAY) FOR BREATHIN G. RESPIR ATORY (INHAL ATION) DISCONT INUED 07/29/2024 [id number] 5 COURTNEYKY TTISA 2023 3 [facility] Immunizations Combined list of available immunizations from the Department of Defense and Veterans Affairs facilities. 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 Status Comments Source COVID-19 ([employer]), MRNA, LNP-S, PF, NICK-SUCROSE, 30 MCG/0.3 ML (AGES 12+ YEARS) 1 2023 309 complet ed HISTORICA L INFORMATI ON - FROM OTHER REGISTRY, [facility] INFLUENZA, HIGH-DOSE, TRIVALENT, PF 1 2023 135 complet ed HISTORICA L INFORMATI ON - FROM OTHER REGISTRY, [facility] COVID-19 ([employer]), MRNA, LNP-S, PF, NICK-SUCROSE, 30 MCG/0.3 ML (AGES 12+ YEARS) 3 2022 309 complet ed HISTORICA L INFORMATI ON - FROM OTHER REGISTRY, [facility] INFLUENZA, ADJUVANTED, QUADRIVALENT, PF 1 2022 205 complet ed HISTORICA L INFORMATI ON - FROM OTHER [facility], [facility] RSV, RECOMBINANT, PROTEIN SUBUNIT RSVPREF, ADJUVANT RECONSTITUTED , 0.5 ML, PF 2022 303 complet ed HISTORICA L INFORMATI ON - FROM OTHER REGISTRY, [facility] COVID-19 ([facility]), MRNA, LNP-S, BIVALENT, PF, 30 MCG/0.3 ML DOSE 2 2021 300 complet ed HISTORICA L INFORMATI ON - FROM OTHER REGISTRY, [facility] INFLUENZA, HIGH-DOSE, QUADRIVALENT 4 2021 197 complet ed HISTORICA L INFORMATI ON - FROM OTHER REGISTRY, [facility] COVID-19 ([facility]), MRNA, LNP-S, PF, 30 MCG/0.3 ML DOSE 1 2020 208 complet ed HISTORICA L INFORMATI ON - FROM OTHER REGISTRY, [facility] INFLUENZA, HIGH-DOSE, QUADRIVALENT 3 2020 197 complet ed HISTORICA L INFORMATI ON - FROM OTHER [facility], [facility] COVID-19 ([facility]), MRNA, LNP-S, PF, 30 MCG/0.3 ML DOSE 2 2020 208 complet ed PFR; [id number]; 1 [facility] COVID-19 ([employer]), MRNA, LNP-S, PF, 30 MCG/0.3 ML DOSE 1 2020 208 complet ed PFR; [id number]; 1 [facility] INFLUENZA, RECOMBINANT, QUADRIVALENT, INJECTABLE, PRESERVATIVE FREE 2 2019 185 complet ed HISTORICA L INFORMATI ON - FROM OTHER [facility], [facility] INFLUENZA, UNSPECIFIED FORMULATION [address] [facility] PNEUMOCOCCAL POLYSACCHARID E PPV23 2017 33 complet ed [facility] INFLUENZA, UNSPECIFIED FORMULATION 2017 88 complet ed per [facility] ZOSTER RECOMBINANT 2 2017 187 complet ed [facility]OSTER RECOMBINANT 1 2017 187 complet ed [facility] INFLUENZA, INJECTABLE, QUADRIVALENT, PRESERVATIVE FREE 2016 150 complet ed [facility] PNEUMOCOCCAL CONJUGATE PCV 13 2016 133 complet ed [facility] INFLUENZA, HIGH DOSE SEASONAL 1 2014 135 complet ed HISTORICA L INFORMATI ON - FROM OTHER REGISTRY, [facility] N Results Combined list of recent chemistry, hematology and other laboratory results from Department of Defense and Veterans Affairs, ranging from 15 months to all on record, depending upon the facility. Order Name Results Value Reference Range Date Interpretation Specimen Comments Source TSH W/ REFLEX FT4 (STL) THYROTROPIN [UNITS/VOLU ME] IN SERUM OR PLASMA 2.063 u[IU]/ mL 0.47 - 5 07/06 Specimen Type: PLASMA No comment entered. Ordering Provider: GUILHERME IRELAND Report Released Date/Time: Jun 09, 2024 10:51 AM Reporting Lab: [facility] [address] [facility] [phone] Performing Lab: [facility] [address] [place] [phone] [facility] LIPID PANEL (STL) CHOLESTEROL [MASS/VOLUM E] IN SERUM OR PLASMA 107 mg/dL 0 - 200 07/06 Specimen Type: PLASMA No comment entered. Ordering Provider: GUILHERME IRELAND Report Released Date/Time: Jun 09, 2024 10:51 AM Reporting Lab: [facility] [address] [facility] [address] Performing Lab: [facility] [address] [place] [phone] [facility] LIPID PANEL (L) TRIGLYCERID E [MASS/VOLUM E] IN SERUM OR PLASMA 65 mg/dL 0 - 150 07/06 Specimen Type: PLASMA No comment entered. Ordering Provider: GUILHERME IRELAND Report Released Date/Time: Jun 09, 2024 10:51 AM Reporting Lab: [facility] [address] [place] [phone] Performing Lab: [address] [phone] [facility] LIPID PANEL (STL) CHOLESTEROL IN LDL [MASS/VOLUM E] IN SERUM OR PLASMA BY CALCULATION 58 mg/dL 07/06 Specimen Type: PLASMA No comment entered. Ordering Provider: GUILHERME IRELAND Report Released Date/Time: Jun 09, 2024 10:51 AM Reporting Lab: [place] [address] [facility] [phone] Performing Lab: [address] [phone] [facility] LIPID PANEL (STL) CHOLESTEROL IN HDL [MASS/VOLUM E] IN SERUM OR PLASMA 36 mg/dL 40 07/06 L Specimen Type: PLASMA No comment entered. Ordering Provider: GUILHERME IRELAND Report Released Date/Time: Jun 09, 2024 10:51 AM Reporting Lab: [address] [address] Performing Lab: [address] [phone] [facility] MICRAL/CRE AT PROFILE (STL) ALBUMIN [MASS/VOLUM E] IN URINE <5.0mg /L 07/06 Specimen Type: URINE Comment: uALB/CREAT Ratio Unable to be calculated Unable to calculate due to Microalbumin < 5.0 mg/L Ordering Provider: GUILHERME IRELAND Report Released Date/Time: Jun 09, 2024 10:51 AM Reporting Lab: [address] [address] Performing Lab: [address] [phone] MICRAL/CRE AT PROFILE (STL) ALBUMIN/CRE ATININE [MASS RATIO] IN URINE commen tmg/g 0 - 29 07/06 Specimen Type: URINE Comment: uALB/CREAT Ratio Unable to be calculated Unable to calculate due to Microalbumin < 5.0 mg/L Ordering Provider: GUILHERME IRELAND Report Released Date/Time: Jun 09, 2024 10:51 AM Reporting Lab: [facility] [address] [place] [phone] Performing Lab: [phone] [place] [address] MICRAL/CRE AT PROFILE (STL) CREATININE [MASS/VOLUM E] IN URINE 41.7 mg/dL 63 - 166 07/06 L Specimen Type: URINE Comment: uALB/CREAT Ratio Unable to be calculated Unable to calculate due to Microalbumin < 5.0 mg/L Ordering Provider: GUILHERME IRELAND Report Released Date/Time: Jun 09, 2024 10:51 AM Reporting Lab: [facility] [address] [place] [phone] Performing Lab: [address] [phone] [place] [address] CBC LEUKOCYTES [#/VOLUME] IN BLOOD BY AUTOMATED COUNT 8.5 10*3/u L 3.6 - 11.2 07/06 Specimen Type: BLOOD No comment entered. Ordering Provider: GUILHERME IRELAND Report Released Date/Time: Jun 09, 2024 10:51 AM Reporting Lab: [facility] [address] [place] [phone] Performing Lab: [address] [phone] CBC ERYTHROCYTE S [#/VOLUME] IN BLOOD BY AUTOMATED COUNT 4.57 10*6/u L 4.10 - 5.70 07/06 Specimen Type: BLOOD No comment entered. Ordering Provider: GUILHERME IRELAND Report Released Date/Time: Jun 09, 2024 10:51 AM Reporting Lab: [facility] [address] [place] [phone] Performing Lab: [facility] [address] [place] [phone] [place] [address] CBC HEMOGLOBIN [MASS/VOLUM E] IN BLOOD 13.6 g/dL 13.1 - 16.8 07/06 Specimen Type: BLOOD No comment entered. Ordering Provider: GUILHERME IRELAND Report Released Date/Time: Jun 09, 2024 10:51 AM Reporting Lab: [place] [address] Performing Lab: [address] CBC HEMATOCRIT [VOLUME FRACTION] OF BLOOD 40.7 38.2 - 48.4 07/06 Specimen Type: BLOOD No comment entered. Ordering Provider: GUILHERME IRELAND Report Released Date/Time: Jun 09, 2024 10:51 AM Reporting Lab: [facility] [address] [place] [phone] Performing Lab: [phone] CBC MCV [ENTITIC VOLUME] BY AUTOMATED COUNT 89.1 fL 80.0 - 100.0 07/06 Specimen Type: BLOOD No comment entered. Ordering Provider: GUILHERME IRELAND Report Released Date/Time: Jun 09, 2024 10:51 AM Reporting Lab: [address] [phone] Performing Lab: [phone] CBC MCH [ENTITIC MASS] BY AUTOMATED COUNT 29.8 pg 27.0 - 34.0 07/06 Specimen Type: BLOOD No comment entered. Ordering Provider: GUILHERME IRELAND Report Released Date/Time: Jun 09, 2024 10:51 AM Reporting Lab: [facility] [address] [place] [phone] Performing Lab: [facility] [address] [place] [phone] [place] [address] CBC MCHC [MASS/VOLUM E] BY AUTOMATED COUNT 33.4 g/dL 33.0 - 36.0 07/06 Specimen Type: BLOOD No comment entered. Ordering Provider: GUILHERME IRELAND Report Released Date/Time: Jun 09, 2024 10:51 AM Reporting Lab: [facility] [address] [place], [place] [phone] Performing Lab: [address] [phone] CBC PLATELETS [#/VOLUME] IN BLOOD BY AUTOMATED COUNT 229 10*3/u L 150 - 400 07/06 Specimen Type: BLOOD No comment entered. Ordering Provider: GUILHERME IRELAND Report Released Date/Time: Jun 09, 2024 10:51 AM Reporting Lab: [facility] [address] [place] [phone] Performing Lab: [address] [phone] [place] [address] CBC PLATELET MEAN VOLUME [ENTITIC VOLUME] IN BLOOD BY AUTOMATED COUNT 9.3 fL 7.5 - 11.2 07/06 Specimen Type: BLOOD No comment entered. Ordering Provider: GUILHERME IRELAND Report Released Date/Time: Jun 09, 2024 10:51 AM Reporting Lab: [facility] [address] [place] [phone] Performing Lab: [facility] [address] [place] [address] [phone] [place] [address] CBC ERYTHROCYTE DISTRIBUTIO N WIDTH [RATIO] BY AUTOMATED COUNT 13.0 11.8 - 15.1 07/06 Specimen Type: BLOOD No comment entered. Ordering Provider: GUILHERME IRELAND Report Released Date/Time: Jun 09, 2024 10:51 AM Reporting Lab: [facility] [address] [facility] [phone] Performing Lab: [facility] [address] [facility] [phone] [facility] CBC LYMPHOCYTES /100 LEUKOCYTES IN BLOOD BY AUTOMATED COUNT 25 07/06 Specimen Type: BLOOD No comment entered. Ordering Provider: GUILHERME IRELAND Report Released Date/Time: Jun 09, 2024 10:51 AM Reporting Lab: [facility] [address] [facility] [phone] Performing Lab: [facility] [address] [facility] [phone] [facility] CBC MONOCYTES/1 00 LEUKOCYTES IN BLOOD BY AUTOMATED COUNT 7 07/06 Specimen Type: BLOOD No comment entered. Ordering Provider: GUILHERME IRELAND Report Released Date/Time: Jun 09, 2024 10:51 AM Reporting Lab: [facility] [address] [facility] [phone] Performing Lab: [facility] [address] [facility] [phone] [facility] CBC NEUTROPHILS /100 LEUKOCYTES IN BLOOD BY AUTOMATED COUNT 64 07/06 Specimen Type: BLOOD No comment entered. Ordering Provider: GUILHERME IRELAND Report Released Date/Time: Jun 09, 2024 10:51 AM Reporting Lab: [facility] [address] [facility] [phone] Performing Lab: [facility] [address] [facility] [address] [facility] CBC EOSINOPHILS /100 LEUKOCYTES IN BLOOD BY AUTOMATED COUNT 2 07/06 Specimen Type: BLOOD No comment entered. Ordering Provider: GUILHERME IRELAND Report Released Date/Time: Jun 09, 2024 10:51 AM Reporting Lab: [facility] [address] [place] [address] Performing Lab: [address] [address] [facility] CBC BASOPHILS/1 00 LEUKOCYTES IN BLOOD BY AUTOMATED COUNT 1 07/06 Specimen Type: BLOOD No comment entered. Ordering Provider: GUILHERME IRELAND Report Released Date/Time: Jun 09, 2024 10:51 AM Reporting Lab: [address] [address] Performing Lab: [address] [address] [facility] CBC LYMPHOCYTES [#/VOLUME] IN BLOOD BY AUTOMATED COUNT 2.14 10*3/u L 0.77 - 4.50 07/06 Specimen Type: BLOOD No comment entered. Ordering Provider: GUILHERME IRELAND Report Released Date/Time: Jun 09, 2024 10:51 AM Reporting Lab: [address] [address] Performing Lab: [address] [address] [facility] CBC MONOCYTES [#/VOLUME] IN BLOOD BY AUTOMATED COUNT 0.60 10*3/u L 0.19 - 0.80 07/06 Specimen Type: BLOOD No comment entered. Ordering Provider: GUILHERME IRELAND Report Released Date/Time: Jun 09, 2024 10:51 AM Reporting Lab: [address] [address] Performing Lab: [address] [address] [facility] CBC NEUTROPHILS [#/VOLUME] IN BLOOD BY AUTOMATED COUNT 5.43 10*3/u L 2.10 - 8.00 07/06 Specimen Type: BLOOD No comment entered. Ordering Provider: GUILHERME IRELAND Report Released Date/Time: Jun 09, 2024 10:51 AM Reporting Lab: [address] [address] Performing Lab: [address] [phone] [place] [address] CBC EOSINOPHILS [#/VOLUME] IN BLOOD BY AUTOMATED COUNT 0.19 10*3/u L 0.00 - 0.60 07/06 Specimen Type: BLOOD No comment entered. Ordering Provider: GUILHERME IRELAND Report Released Date/Time: Jun 09, 2024 10:51 AM Reporting Lab: [address] [address] Performing Lab: [address] [phone] [place] [address] CBC BASOPHILS [#/VOLUME] IN BLOOD BY AUTOMATED COUNT 0.05 10*3/u L 0.00 - 0.20 07/06 Specimen Type: BLOOD No comment entered. Ordering Provider: GUILHERME IRELAND Report Released Date/Time: Jun 09, 2024 10:51 AM Reporting Lab: [address] [address] Performing Lab: [address] [phone] [place] [address] B12 COBALAMIN (VITAMIN B12) [MASS/VOLUM E] IN SERUM OR PLASMA 234 pg/mL 213 - 816 10/05 Specimen Type: SERUM Comment: The listed sex of this patient may not be a typical indication for this test. Therefore, reference ranges or interpretive criteria listed may not be valid. Clinical correlation suggested. Ordering Provider: SANJEEV ROSS Report Released Date/Time: Sep 09, 2023 11:53 AM Reporting Lab: [address] [address] Performing Lab: [address] [phone] [place] [address] THYROXINE THYROXINE (T4) [MASS/VOLUM E] IN SERUM OR PLASMA 6.07 ug/dL 4.5 - 12 10/05 Specimen Type: SERUM Comment: The listed sex of this patient may not be a typical indication for this test. Therefore, reference ranges or interpretive criteria listed may not be valid. Clinical correlation suggested. Ordering Provider: SANJEEV ROSS Report Released Date/Time: Sep 09, 2023 11:53 AM Reporting Lab: [address] [address] Performing Lab: [address] [phone] [place] [address] VITAMIN D, 25-HYDROXY 25-HYDROXYV ITAMIN D3 [MASS/VOLUM [...] Sep 09, 2023 11:53 AM Reporting Lab: [address] [address] Performing Lab: [address] [phone] [place] [address] TSH W/ REFLEX FT4 (STL) THYROTROPIN [UNITS/VOLU ME] IN SERUM OR PLASMA 3.194 u[IU]/ mL 0.47 - 5 10/05 Specimen Type: PLASMA No comment entered. Ordering Provider: SANJEEV ROSS Report Released Date/Time: Sep 09, 2023 11:53 AM Reporting Lab: [address] [address] Performing Lab: [address] [phone] [place] [address] PROST. SPECIFIC AG.(PB-STL ) PROSTATE SPECIFIC AG [...] Sep 09, 2023 11:53 AM Reporting Lab: [facility] [address] [facility] [address] Performing Lab: [facility] [address] [facility] [address] [facility] HGA1C HEMOGLOBIN A1C/HEMOGLO BIN.TOTAL IN BLOOD 6.3 4.0 - 6.0 10/05 H Specimen Type: BLOOD No comment entered. Ordering Provider: SANJEEV ROSS Report Released Date/Time: Sep 09, 2023 11:53 AM Reporting Lab: [facility] [address] [facility] [address] Performing Lab: [facility] [address] [place] [address] [facility] Vital Signs Combined list of inpatient and outpatient Vital Signs from Department of Defense and Veterans Affairs, ranging from 12 months to all on record, depending upon the facility. Vital Sign Value Date Comments Source SYSTOLIC BLOOD PRESSURE 152 06/09/2024 10:39:51 [facility] DIASTOLIC BLOOD PRESSURE 89 06/09/2024 10:39:51 [facility] PULSE OXIMETRY 95 06/09/2024 10:39:51 S . [facility]3] WEIGHT 216 06/09/2024 10:39:51 [facility] BMI 31 kg/m2 06/09/2024 10:39:51 [facility] PAIN 0 06/09/2024 10:39:[facility] HEIGHT 70 06/09/2024 10:39:51 [facility] TEMPERATURE 97.6 06/09/2024 10:39:51 . [facility]3] PULSE 64 06/09/2024 10:39:51 [facility] RESPIRATION 20 06/09/2024 10:39:51 . [facility]3] Encounters Combined list of: 1) Encounters from Department of Veterans Affairs facilities going backup to the last 18 months, not all [place] inpatient encounters are included; 2) Encounters from the Department of Defense facilities going backup to 280 months. Location Location Details Encounter Type Encounter Number Reason For Visit Attending Provider ADM Date DC Date Status Disposition Source [facility] Outpatient Encounter [id number] LUPILLO,LO SÁNCHEZ A 07/28 [facility] Outpatient Encounter [id number] ANILA OKEEFE Ghazala 08/06 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, right eye SHAI WEAVER TTHEW C 08/30 [facility] HEARING AID CHECK BOTH EARS [id number] Diagnos is: ICD-10- CM H90.3 Sensori neural hearing loss, LUPIS Storey 08/31 [facility] HEARING AID REPAIR/MOD IFYING [id number] Diagnos is: ICD-10- CM H90.3 Sensori neural hearing loss, carlyle KALI Mercado A 09/07 [facility] OFFICE O/P EST MOD 30 MIN [id number] Diagnos is: ICD-10- CM Z00.00 Encntr for general adult medical exam w/o abnorma l finding s CODY,DORCAS SA S 09/08 [facility] HEARING AID FITTING/CH ECKING [id number] Diagnos is: ICD-10- CM H90.3 Sensori neural hearing loss, carlyle BrysonFAITH BARRIENTOS 10/06 [facility] Outpatient Encounter [id number] 10/26 [facility] Outpatient Encounter [id number] 12/14 [facility] Outpatient Encounter [id number] 02/22 [facility] Outpatient Encounter [id number] 06/09 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 Social History Type Response Date Comment Sourc e Tobacco smoking status NHIS VA-TOBACCO USE FORMER CIGARETTES 06/09/2024 [facility] History of tobacco use VA-TOBACCO NEVER USED OTHER TYPE 06/09/2024 [facility] History of tobacco use VA-TOBACCO FORMER USER 10/07/2022 [facility] History of tobacco use VA-TOBACCO FORMER USER 09/20/2020 [facility] History of tobacco use VA-TOBACCO FORMER USER 07/15/2018 [facility] History of tobacco use VA-TOBACCO FORMER USER 11/20/2017 [facility] History of tobacco use QUIT TOBACCO >7 YEARS AGO 10/06/2017 [facility] History of tobacco use QUIT TOBACCO >7 YEARS AGO 12/26/2016 [facility] Plan of Care List of future care activities from Department of Veterans Affairs facilities. Additional future care activities may be listed in the Assessment and Plan section. Date/Time Care Activity Care Activity Detail Facili ty 10/11/2024 AMBULATORY - SURGERY AMBULATORY - SURGERY [facility]
--- OUTSIDE RECORDS SUMMARY | 2024-09-23 08:10 | XMS_ITS ---
Author Name [facility] [place] [facility] [place] Address [address] [place] [address] Care Team Providers Care Grants Administrator Name Role Phone CAMMY GILMORE Primary Care [...] MEDIC ARE SUPPL EMENT Aug 23, 2013 [id number] [phone] CHAPINCITOJUSTIN ADORNO PATIENT ANTHEM BCBS [place] MEDICARE SUPPLEMEN JAMIN MEDIC ARE SUPPL EMENT Aug 23, 2013 [id number] [phone] CHAPINCITO, JUSTIN PATIENT ANTHEM [place] MEDICARE SUPPLEMEN JAMIN MEDIC ARE SUPPL EMENT Aug 23, 2013 [id number] [phone] CHAPINCITOJUSTIN ATKINSON PATIENT ANTHEM [place] MEDIGAP PLAN F MEDIC ARE SUPPL EMENT Aug 23, 2013 [id number] [phone] CHAPINCITOJUSTIN ATKINSON PATIENT ANTHEM BCBS [place] MEDICARE SUPPLEMEN JAMIN MEDIC ARE SUPPL EMENT Aug 23, 2013 [id number] [phone] CHAPINCITO, JUSTIN PATIENT [place] MEDICARE SUPPLEMEN JAMIN MEDIC ARE SUPPL EMENT Aug 23, 2013 [id number] [phone] CHAPIN[place]O, JUSTIN PATIENT [place] SUPPLEMEN JAMIN MEDIC ARE SUPPL EMENT Aug 23, 2013 [id number] [phone] CHAPINCITO, JUSTIN PATIENT MEDICARE (WNR) MEDICARE (M) PART B Nov 23, 2010 PART B [id number] CHAPINCITO, JUSTIN PATIENT MEDICARE (WNR) MEDICARE (M) PART B Nov 23, 2010 PART B [id number] CHAPINCITO, JUSTIN PATIENT MEDICARE (WNR) MEDICARE (M) PART B Nov 23, 2010 PART B [id number] CHAPINCITO, JUSTIN PATIENT MEDICARE (WNR) MEDICARE (M) PART A Nov 23, 2009 PART A [id number] CHAPINCITO, JUSTIN PATIENT MEDICARE (WNR) MEDICARE (M) PART A Nov 23, 2009 PART A [id number] CHAPINCITO, JUSTIN PATIENT MEDICARE (WNR) MEDICARE (M) PART A Nov 23, 2009 PART A [id number] CHAPINCITO, JUSTIN PATIENT Selected Encounter This section includes the information on record at [place] for the Encounter. Date/Time Encounter Type Encounter Description Reason Provider Source July 07, 2024 03:02 PM HEARING AID CHECK [place] AUDI[facility] ICD-10-CM Z46.1 Encounter for fitting and adjustment of hearing aid ALANNAH CAMARENA [facility] Encounter Template Text not used by [place] Assessments - Encounter Diagnoses This section includes the primary and secondary diagnoses documented for the Encounter. Date/Time Primary/Secondary Diagnosis Diagnosis Name Provider Source July 07, 2024 03:13 PM PRIMARY Encounter for fitting and adjustment of hearing aid ALANNAH CAMARENA [facility] July 07, 2024 03:13 PM SECONDARY Sensorineural hearing loss, bilateral ALANNAH CAMARENA [facility] Plan of Treatment: Future Appointments (+ 6 months) and Future Tests (+/- 45 days) The Plan of Treatment section includes future care activities for the patient from all [place] [facility]. This section includes future appointments and future orders which are active, pending or scheduled. Future Appointments This section includes appointments that were scheduled to occur 6 months from the date of the Encounter, up to a maximum of 20 appointments. The data comes from all [place] treatment facilities. Appointment Date/Time Appointment Type Appointme nt Facility Name Oct 11, 2024 08:45 AM AMBULATORY - SURGERY [facility] Lab Results: +/- 30 days of the encounter This section includes the Chemistry and Hematology Lab Results on record with [place] for the patient. Radiology Reports and Pathology Reports are provided separately, in subsequent sections. Lab Results This section contains the Chemistry/Hematology Results that were resulted 30 days before or 30 daysafter the date of the Encounter. Date/Time Source Result Type Result - Unit Interpretation Reference Range Specimen Type Comment July 06, 2024 09:11 AM [facility] TSH W/ REFLEX FT4 (STL) PLASMA Specimen Type: PLASMA No comment entered. Ordering Provider: GOPI IRELAND Report Released Date/Time: Jun 09, 2024 10:51 AM Reporting Lab: [address] [address] Performing Lab: [address] [address] TSH 2.063 u[IU]/mL 0.47-5 July 06, 2024 09:11 AM [facility] MICRAL/CREAT PROFILE (STL) URINE Specimen Typ e: URINE Comment: uALB/CREAT Ratio Unable to be calculated Unable to calculate due to Microalbumin < 5.0 mg/L Ordering Provider: GOPI IRELAND Report Released Date/Time: Jun 09, 2024 10:51 AM Reporting Lab: [facility] [address] [facility] [address] Performing Lab: [address] [address] URINE ALBUMIN (PB-STL) <5.0 mg/L uACR (STL) comment mg/g 0-29 CREATININE URINE/OTHERS 41.7 mg/dL L 63-16 6 July 06, 2024 09:11 AM [facility] LIPID PANEL (STL) PLASMA Specimen Type: PLASM A No comment entered. Ordering Provider: GOPI IRELAND Report Released Date/Time: Jun 09, 2024 10:51 AM Reporting Lab: [facility] [address] [place] [phone] Performing Lab: [facility] [address] [place] [address] CHOLESTEROL 107 mg/dL 0-200 TRIGLYCERIDE 65 mg/dL 0-150 CALCULATED LDL 58 mg/dL HDL(New) 36 mg/dL L >40 July 06, 2024 09:11 AM [facility] CBC BLOOD Specimen Type: BLOOD No comment entered. Ordering Provider: GOPI IRELAND Report Released Date/Time: Jun 09, 2024 10:51 AM Reporting Lab: [facility] [address] [place] [phone] Performing Lab: [facility] [address] [place] [phone] WBC 8.5 10*3/uL 3.6-11.2 RBC 4.57 10*6/uL [...] and tobacco- related health factors from the [place] facility where the Encounter took place. Current Smoking Status This section includes the most current smoking, or tobacco-related health factor, from the [place] facility where the Encounter took place. Date/Time Current Smoking Status Comment Facil ity Oct 07, 2022 04:23 PM VA-TOBACCO FORMER USER [facility] Tobacco Use History This section includes a history of the smoking, or tobacco-related health factors, that were collected on or before the date of the Encounter. The data comes from the [place] facility where the Encounter took place. Date/Time Smoking Status/Tobacco Use Comment F accarey Oct 07, 2022 04:23 PM [place]-TOBACCO QUIT 15 YRS OR MORE [facility] Encounter Notes: All associated encounter notes This section contains the clinical notes associated to the Encounter. Date/Time Encounter Note(s) Provider Source July 07, 2024 03:02 PM AUDIOLOGY SENIOR SHAREPOINT ARCHITECT NOTE: LOCAL TITLE: HEARING AIDS STL STANDARD TITLE: AUDIOLOGY SENIOR SHAREPOINT ARCHITECT NOTE DATE OF NOTE: JULY 07, 2024@15:02 ENTRY DATE: JULY 07, 2024@15:03 AUTHOR: GILBERT CAMARENA COSIGNER: URGENCY: STATUS: COMPLETED SUBJECT: Audio HEARING AIDS STL Has ADDENDA HEARING AID DROP OFF [facility] dropped off/mailed the following [place] issued aid(s): 07/09/18 SONOVA PHONAK VIRTO B90 CA R [id number] 07/09/18 SONOVA PHONAK VIRTO B90 CA L [id number] PHONE: [phone] REPORTED PROBLEM: Right volume button inoperable. When can I get tested for new one? REPAIR ACTIONS: General cleaning. Listening check OK. Noted some difficulty with getting right push button to trigger for VC change. Will send right aid for manager exchange repair to address push button. Connected hearing aids to software. Datalogging indicated average of 4.9 hrs/day for the right aid and 5.2 hrs/day for the left aid. Last audio eval completed 06/14/2018. Called pt to discuss; advised pt may schedule audio eval at his convienence. Pt confirmed interest in updated audio eval; prefers [facility] location. Entered text order. PLAN [facility] was notified of repair actions: [x] Device(s) sent in for repair; hearing aid will be mailed to [facility] following repair direct from [facility]; ETA approximately 2-3 weeks. 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 - left Address: [address] [place] [id number] /primo/ Shira MONIQUE Staff Bible Worker, Surgery Service Signed: 07/07/2024 15:17 07/08/2024 ADDENDUM STATUS: COMPLETED [id number] /primo/ Shira Angel, [facility] Staff Bible Worker, Surgery Service Signed: 07/08/2024 14:27 GILBERT CAMARENA [facility]
[2024-09-23 15:15] LABS: Hemoglobin A1C 6.0 % (<5.7)
[2024-09-23 15:24] LABS: Alanine Aminotransferase 14 U/L (6-50); Albumin Level 4.4 g/dL (3.5-5.1); Alkaline Phosphatase 56 U/L (38-126); Anion Gap 11 mmol/L (4-12); Aspartate Amino Transferase 38 U/L (17-59); Bilirubin,Total 0.6 mg/dL (0.2-1.3); Blood Urea Nitrogen 16 mg/dL (9-20); Calcium 9.6 mg/dL (8.4-10.2); Carbon Dioxide 25 mmol/L (22-30); Chloride 101 mmol/L (98-107); Estimated Glomerular Filt Rate > 60; Glucose 95 mg/dL (65-110); Potassium 4.3 mmol/L (3.4-5.0); Sodium 137 mmol/L (137-145); Total Protein 7.3 g/dL (6.3-8.2)
[2024-09-23 16:02] LABS: Thyroid Stimulating Hormone 5.910 uIU/mL (0.465-4.680)
== END 2024-09-23 08:08 | disposition home or self-care (01) ==
LOC: ANHGOSHLAB 08:07
PROVIDERS: PCP Family Medicine; Visit Provider Physician Assistant
DX: I25.10 Atherosclerotic heart disease of native coronary artery without angina pectoris (principal); I10 Essential (primary) hypertension; I48.20 Chronic atrial fibrillation, unspecified; E78.5 Hyperlipidemia, unspecified; E11.9 Type 2 diabetes mellitus without complications; E03.9 Hypothyroidism, unspecified
CPT/HCPCS: 36415; 80053; 83036; 84443

== ENCOUNTER 2024-12-05 13:39 | Outpatient (CLI) | payer MEDICARE, SELFPAY ==
--- NOTE | ~2024-12-05 | US_ITS ---
EXAMINATION: US soft tissue abdomen DATE: 12/05/2024 13:51 INDICATION: Subcutaneous nodule at the left upper quadrant of the abdomen with palpable lump slightly to the left of midline. TECHNIQUE: Multiple grayscale and Doppler ultrasound images of the left upper quadrant anterior abdominal wall region of concern were obtained. COMPARISON: None FINDINGS: The region of concern is an approximately 2.9 x 1.0 x 2.1 cm ill-defined region of increased echogenicity of the subcutaneous fat which also appears mildly thickened. No evident increased vascular flow either within or surrounding the region of concern. No other abnormal masses or fluid collections identified. IMPRESSION: 1. Focal small ill-defined region of mild swelling and increased echogenicity of the subcutaneous fat at the region of concern consistent with focal inflammation/edema. No discrete masses or fluid collections identified. Reviewed, dictated and finalized at location A. IMPRESSION: 1. Focal small ill-defined region of mild swelling and increased echogenicity o f the subcutaneous fat at the region of concern consistent with focal inflammat ion/edema. No discrete masses or fluid collections identified.
== END 2024-12-05 13:40 | disposition home or self-care (01) ==
LOC: GOSHIMG 13:39
PROVIDERS: PCP Physician Assistant; Visit Provider Physician Assistant
DX: R22.2 Localized swelling, mass and lump, trunk (principal)
CPT/HCPCS: 76705